=== PATIENT | female | born 1950 ===

== ENCOUNTER 2019-05-03 07:00 | Inpatient (IN) | payer MEDICARE ==
[~2019-05-03 07:00] MED LIST: Lactated Ringers 1000 ML Bag* 1,000 ML IV SCH; Sodium Citrate/Citric Acid* 15 ML UDC PO ONE; Tranexamic Acid 1,000 MG in NS 0.9% 50 ML* (outpatient use) IV SCH
--- OUTSIDE RECORDS SUMMARY | 2019-05-03 07:03 | XMS REPORT | Summary of Care ---
:1950 Author Organization [facility] Address [address] [address] Care Team Providers Name Role Phone Camacho Cote Primary Care Provider Reason for Referral Diagnostic Testing (Routine) Status Reason Specialty Diagnoses / Procedures Referred By Referred To Contact Contact Closed Cardiology Diagnoses Preoperative cardiovascular examination LBBB (left bundle branch block) Essential hypertension [place] Cardiovascular Procedures ECHOCARDIOGRAM TTE Jose Johnston MD Diagnostic [address] [address] [address] [place] [address] Phone: Reason for Visit Reason Comments Pre-op Exam right knee total replacement-- Hypertension Encounter Details Date Type Department Care Team Description 04/29/2019 Office Visit Jose Pink Preoperative cardiovascular examination (Primary Dx); [address] MD LBBB (left bundle branch block); [address] Essential hypertension [phone] [address] [address] Allergies Active Allergy Reactions Severity Noted Date Comments Epinephrine Hcl SUPERVISOR [employer]ADING Reaction 01/03/2010 Procaine Other 07/17/2010 documented as of this encounter (statuses as of 04/29/2019) Medications Medication Sig Dispensed Refills Start End Date Status Date Nutritional Supplements Take by 0 Active (GLUCOSAMINE COMPLEX mouth. PO) Vitamin E 600 UNIT Oral Take 1,200 0 Active Cap Units by mouth. vitamin a 8000 UNIT Take by 0 Active Oral Cap mouth DAILY. Multiple Take by 0 Active Vitamins-Minerals mouth. (MULTIVITAMIN & MINERAL PO) B Complex Vitamins (B Take by 0 Active COMPLEX 1 PO) mouth. Nutritional Supplements Take by 0 Active (JUICE PLUS FIBRE PO) mouth. Cyanocobalamin (B-12) Take by 0 Active 1000 MCG Oral Tab CR mouth. Probiotic Product Take 1 Cap 30 Cap 5 Active (PROBIOTIC DAILY) Oral by mouth 5 CapIndications: DAILY. Recurrent UTI loratadine Take 1 Tab 30 Tab 5 Active (CLARITIN,ALAVERT) 10 by mouth 8 MG Oral TabIndications: DAILY. Allergic rhinitis, unspecified seasonality, unspecified trigger Estradiol (YUVAFEM) 10 Place 1 16 Tab 5 Active MCG Vaginal Appl into 8 TabIndications: Vaginal the vagina atrophy THREE TIMES PER WEEK. hydrochlorothiazide take 1 90 Tab 3 Active (HCTZ, ORETIC) 25 MG tablet by 8 Oral Tab mouth once daily fluticasone (FLONASE) instill 2 16 g 5 Active 50 MCG/ACT Nasal sprays into 9 SuspensionIndications: each Chronic maxillary nostril sinusitis once daily acyclovir (ZOVIRAX) 200 take 1 30 Cap 5 Active MG Oral CapIndications: capsule by 9 Herpes mouth 5 TIMES DAILY ALPRAZolam (XANAX) 0.25 Take 1 Tab 30 Tab 0 Active MG Oral TabIndications: by mouth 9 Anxiety THREE TIMES DAILY NEEDED (anxiety). Max Daily Amount: 0.75 mg. PREMPRO 0.3-1.5 MG Oral take 1 28 Tab 5 Active Tab tablet by 9 mouth once daily sertraline (ZOLOFT) 50 Take 1 Tab 90 Tab 1 Active MG Oral TabIndications: by mouth 9 Depression, unspecified DAILY. depression type Blood Pressure 1 Kit by 1 Device 0 10/13/19 Active Monitoring (BLOOD Does not 9 20 PRESSURE KIT) Does not apply route apply DAILY for DeviceIndications: 180 days. Essential hypertension nitrofurantoin take 1 30 Cap 2 Active monohydrate capsule by 9 macrocrystal (MACROBID) mouth twice 100 MG Oral Cap a day lisinopril (PRINIVIL, Take 1 Tab 30 Tab 3 Active ZESTRIL) 10 MG Oral Tab by mouth 9 DAILY. 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 documented as of this encounter (statuses as of 04/29/2019) Resolved Problems Problem Noted Date Resolved Date Effusion of shoulder joint 03/02/2007 10/12/2010 Other screening mammogram 02/11/2007 10/12/2010 Unspecified sinusitis (chronic) 12/23/2006 10/12/2010 Urinary tract infection, site not specified 05/20/2006 10/12/2010 documented as of this encounter (statuses as of 04/29/2019) Immunizations Name Administration Dates Next Due Depo Medrol (40mg) 01/18/2011 Hepatitis A Vaccine-Adult 03/04/2007, 09/03/2006 Hepatitis B Vaccine 11/13/2006, 08/15/2006, 07/15/2006 Hepatitis B Vaccine Adult 11/30/2010 Influenza (IM) Preservative Free 05/01/2015, 05/09/2014, 05/12/2013, 201404/20/2012, 05/13/2011, 06/17/2008 Influenza Vaccine Whole 05/31/2009 Pneumococcal Conjugate(13 Valent) 03/05/2019 Polio - Inactivated Vaccine 01/22/2009, 01/18/2009 TDAP Vaccine 03/05/2019, 01/22/2011 TYPHOID VACCINE 01/30/2009, 09/03/2006 documented as of this encounter Social History Tobacco Use Types Packs/Day Years Used Date Former Smoker Cigarettes 0.5 4 Quit: 1985 Smokeless Tobacco: Never Used Alcohol Use Drinks/Week oz/Week Comments No Sex Assigned at Date Recorded Not on file Job Start Date Occupation Industry Not on file Not on file Not on file Travel History Travel Start Travel End No recent travel history available. documented as of this encounter Last Filed Vital Signs Vital Sign Reading Time Taken Comments Blood Pressure 126/72 04/29/2019 7:40 AM EDT Pulse 63 04/29/2019 7:40 AM EDT Temperature 36.3 04/29/2019 7:40 AM EDT C (97.4 F) Respiratory Rate - - Oxygen Saturation 96% 04/29/2019 7:40 AM EDT Inhaled Oxygen Concentration - - Weight 70.3 kg (155 lb) 04/29/2019 7:40 AM EDT Height 160 cm (5' 3") 04/29/2019 7:40 AM EDT Body Mass Index 27.46 04/29/2019 7:40 AM EDT documented in this encounter Patient Instructions Patient InstructionsJose Bettencourt MD - 04/29/2019 8:00 AM EDTPlease schedule your echocardiogram today. Please increase dose of lisinopril to 10 mg daily. Please get blood work in 7 days after increasing the dose of the medication to check your kidney function. I will see you back in 6 weeks. Patient Education DASH Diet About this topic DASH stands for Dietary Approaches to Stop Hypertension. The DASH diet may help you lower blood pressure. It may also help keep you from getting high blood pressure. You will eat less fat and more fiber on the DASH diet. This diet gives you more minerals that fight high blood pressure. Some nutrients in this diet are: Potassium ? Acts to help you get rid of salt. This may help to lower blood pressure. Calcium ? Makes blood vessels and muscles work the right way Vitamin B12 ? Helps the cells work the right way Fiber ? Helps you feel full. It also helps digestion. What will the results be? The DASH diet may help you: Lower your blood pressure and cholesterol Lower your risk for cancer, heart disease, heart attack, and stroke. It may also lower your risk for heart failure, kidney stones, and diabetes. Lose weight or keep a healthy weight What lifestyle changes are needed? Add regular exercise to get the most help from this diet. Do not skip meals. Eat breakfast each day. Try to lower stress. Find ways to relax. Stop smoking. Avoid secondhand smoke. Limit alcohol intake. What changes to diet are needed? Know about poor eating habits. Then, you can fix them as you work with the program. Choose fruit and fruit-flavored gelatin instead of cakes and pastries. This will help to satisfy your desire for sweets. Limit eating food with a lot of salt or sodium in it. Avoid eating canned vegetables and processed foods. These have a lot of salt in them. Look for a low -salt or low-sodium choice. Who should use this diet? This eating plan is good for the whole family. It is also good for people with high blood pressure and those at risk for high blood pressure. What foods are good to eat? Grains: Try to eat 6 to 8 servings of whole grain, high fiber foods each day. These are bread, cereals, brown rice, or pasta. Fruits and vegetables: Eat 4 to 5 servings each day. Try to pick many kinds and colors. Fresh or frozen are best. Look for low sodium or salt-free if you choose canned. Dried peas, beans, and lentils are also good. Dairy: Try to eat 2 to 3 servings of fat free and low fat milk products each day. Lean meats, poultry, and seafood: Try to eat 6 servings or less of lean meats, poultry, and seafood each day. Try to choose more low fat or lean meats like chicken and turkey. Eat less red meat. Eat more fish instead. Nuts, seeds, and legumes (dry beans and peas): Try to eat 4 to 5 servings each week. Try to pick nuts such as almonds, walnuts, sunflower seeds, peanut butter, soy beans, lentils, kidney beans, and split peas. Fats and oils: Try to eat 2 to 3 servings of fats and oils each day. Eat good fats found in fish, nuts, and avocados. Try using olive oil or vegetable oils such as canola oil. Other good oils to try are corn, safflower, sunflower, or soybean oils. Use low-sodium and low-fat salad dressing and mayonnaise. Condiments: Pepper, herbs, spices, vinegar, lemon or mcgrath juices are great for seasoning. Be careful to choose low-sodium or salt-free products if you use broths, soups, or soy sauce. Sweets: Try to eat less than 5 servings each week. Choose low-fat, trans fat-free, sugar-free cookies. These are things like dena crackers, animal crackers, low-fat fig bars, and sundar snaps. It is better to choose gelatin or fruit to satisfy your desire for sweets. What foods should be limited or avoided? Grains: Salted breads, rolls, crackers, quick breads, self-rising flours, biscuit mixes, regular bread crumbs, instant hot cereals, commercially-prepared rice, pasta, stuffing mixes Fruits and vegetables: Commercially-prepared potatoes and vegetable mixes, regular canned vegetables and juices, vegetables frozen with sauce or pickled vegetables, processed fruits with salt or sodium Milk: Whole milk, malted milk, chocolate milk, buttermilk, cheese, ice cream Meats and beans: Smoked, cured, salted, or canned fish; meats or poultry such as kilpatrick, sausages, sardines; high-fat cuts of meat like beef, taylor, or pork; chicken with the skin on it Fats: Cut back on solid fats like butter, lard, and margarine. Eat less food with high saturated fat, cholesterol and total fat. Condiments and snacks: Salted and canned peas, beans, and olives; salted snack foods; fried foods; soda or other sweetened drinks; commercially-softened water; club soda Sweets: High-fat baked goods such as muffins, donuts, pastries, commercial baked goods, candy bars Avoid drinking beer, wine, and mixed drinks (alcohol) and sodas. Helpful tips Try baking or broiling instead of frying food. Write down the foods you eat. This will help you track what you have eaten each week. When you go to a grocery store, have a list or a meal plan. Do not shop when you are hungry to avoid cravings for foods. Read food labels with care. They will show you how much is in a serving. The amount is given asa percentage of the total amount you need each day. Reading labels will help you make healthy food choices. Avoid fast foods. Taking vitamin and mineral supplements will help you balance your diet. Talk to a dietitian for help. Where can I learn more? FamilyDoctor.org http://familydoctor.org/familydoctor/en/prevention-wellness/food-nutrition/ weight-loss/gtp-dnfq-yghm-kmhbgjd-hsxmkr-ki-fulwvfm-ssgd-qszrw-pressure.html National [employer] [place] http://www.nhlbi.nih.gov/health/public/heart/hbp/dash/new_dash.pdf Last Reviewed Date 2016-04-12 Consumer Information Use and Disclaimer This information is not specific medical advice and does not replace information you receive from your health care provider. This is only a brief summary of general information. It does NOT include allinformation about conditions, illnesses, injuries, tests, procedures, treatments, therapies, discharge instructions or life-style choices that may apply to you. You must talk with your health care provider for complete information about your health and treatment options. This information should not beused to decide whether or not to accept your health care providers advice, instructions or recommendations. Only your health care provider has the knowledge and training to provide advice that isright for you. Copyright Copyright 2018 [employer] and its affiliates and/or licensors. All rights reserved. documented in this encounter Progress Notes Jose Bettencourt MD - 04/29/2019 8:00 AM EDT PATIENT: Sonia Field : 1950 DATE OF SERVICE: 04/29/2019 REFERRING PRACTITIONER: Nasir Bishop PRIMARY CARE PROVIDER: Camacho Cote CHIEF COMPLAINT: Chief Complaint Patient presents with Pre-op Exam right knee total replacement-- Hypertension Dear Dr. Bishop and Ms. Cote, Thank you for referring Sonia Field to cardiology for preoperative cardiac evaluation after she was noted to have LBBB on her EKG. I had the pleasure of seeing Sonia Field in the cardiology office today for a new patient consultation. Sonia Field is a 68-y.o. female with a relevant past medical history of 1. Hypertension 2. Depression 3. LBBB Ms. Field has been recommended right total knee replacement. She was seen by her primary care team in preoperative evaluation and was noted to have a left bundle branch block. Her blood pressure also appears to be suboptimally controlled. She tells me she was told she had left bundle branch block years ago. She is somewhat limited in her ability to exert herself because of arthritis in her knees. However she can walk reasonable distances on the flat. She actually did spinning until about a month ago. She can climb a flight of stairs without significant limitations. She denies any significant exertional chest pain or worsening shortness of breath recently. She denies any cough, fever, leg swelling, orthopnea, PND or palpitations. Review of systems: As per HPI, all other systems reviewed and negative. Past Medical History: Diagnosis Date Arthritis History of breast surgery Hypertension Other postprocedural status(V45.89) Postmenopausal Past Surgical History: Procedure Laterality Date MO FEMUR/KNEE SURG UNLISTED TONSILLECTOMY Family History Problem Relation Age of Onset Diabetes Mother Hypertension Mother Heart Disease Mother Cancer Father Current Outpatient Medications Medication Sig acyclovir (ZOVIRAX) 200 MG Oral Cap take 1 capsule by mouth 5 TIMES DAILY ALPRAZolam (XANAX) 0.25 MG Oral Tab Take 1 Tab by mouth THREE TIMES DAILY NEEDED (anxiety). Max Daily Amount: 0.75 mg. B Complex Vitamins (B COMPLEX 1 PO) Take by mouth. Blood Pressure Monitoring (BLOOD PRESSURE KIT) Does not apply Device 1 Kit by Does not apply route DAILY for 180 days. Cyanocobalamin (B-12) 1000 MCG Oral Tab CR Take by mouth. Estradiol (YUVAFEM) [address] 1 Appl into the vagina THREE TIMES PER WEEK. fluticasone (FLONASE) 50 MCG/ACT Nasal Suspension instill 2 sprays into each nostril once daily hydrochlorothiazide (HCTZ, ORETIC) 25 MG Oral Tab take 1 tablet by mouth once daily lisinopril (PRINIVIL, ZESTRIL) 10 MG Oral Tab Take 1 Tab by mouth DAILY. loratadine (CLARITIN,ALAVERT) 10 MG Oral Tab Take 1 Tab by mouth DAILY. Multiple Vitamins-Minerals (MULTIVITAMIN & MINERAL PO) Take by mouth. nitrofurantoin monohydrate macrocrystal (MACROBID) 100 MG Oral Cap take 1 capsule by mouth twice a day Nutritional Supplements (GLUCOSAMINE COMPLEX PO) Take by mouth. Nutritional Supplements (JUICE PLUS FIBRE PO) Take by mouth. PREMPRO 0.3-1.5 MG Oral Tab take 1 tablet by mouth once daily Probiotic Product (PROBIOTIC DAILY) Oral Cap Take 1 Cap by mouth DAILY. sertraline (ZOLOFT) 50 MG Oral Tab Take 1 Tab by mouth DAILY. vitamin a 8000 UNIT Oral Cap Take by mouth DAILY. Vitamin E 600 UNIT Oral Cap Take 1,200 Units by mouth. No current facility-administered medications for this visit. Allergies Allergen Reactions Epinephrine Hcl SUPERVISOR PYROTECHNIC LOADING Reaction Novacain [Procaine] Other Social History Socioeconomic History Marital status: Spouse name: Not on file Number of children: Not on file Years of education: Not on file Highest education level: Not on file Occupational History Not on file Social Needs Financial resource strain: Not on file Food insecurity: Worry: Not on file Inability: Not on file Transportation needs: Medical: Not on file Non-medical: Not on file Tobacco Use Smoking status: Former Smoker Packs/day: 0.50 Years: 4.00 Pack years: 2.00 Types: Cigarettes Last attempt to quit: 1985 Years since quittin.7 Smokeless tobacco: Never Used Substance and Sexual Activity Alcohol use: No Drug use: No Sexual activity: Never Partners: Male Lifestyle Physical activity: Days per week: Not on file Minutes per session: Not on file Stress: Not on file Relationships Social connections: Talks on phone: Not on file Gets together: Not on file Attends rastafarian service: Not on file Active member of club or organization: Not on file Attends meetings of clubs or organizations: Not on file Relationship status: Not on file Intimate partner violence: Fear of current or ex partner: Not on file Emotionally abused: Not on file Physically abused: Not on file Forced sexual activity: Not on file Other Topics Concern Not on file Social History Narrative Not on file Physical Examination: VITALS: BP 126/72 (BP Location: Left arm, Patient Position: Sitting) | Pulse 63 | Temp 97.4 F(36.3 C) (Temporal) | Ht 5' 3" (1.6 m) | Wt 155 lb ( 70.3 kg) | SpO2 96% | BMI 27.46 kg/m Body mass index is 27.46 kg/m. General Appearance: Alert, cooperative, no distress, appears stated age Head: Normocephalic, without obvious abnormality, atraumatic Eyes: PERRL, conjunctiva/corneas clear Nose: No drainage or sinus tenderness Throat: Lips, mucosa, and tongue normal Neck: Supple, symmetrical, trachea midline, no adenopathy; Thyroid: no enlargement/tenderness/nodules; no carotid bruit or JVD Lungs: Clear to auscultation bilaterally, respirations unlabored Chest wall: No tenderness or deformity Heart: Regular rate and rhythm, S1 and S2 normal, no murmur, rub or gallop Abdomen: Soft, non-tender, bowel sounds active all four quadrants, no masses , no organomegaly Extremities: Extremities normal, atraumatic, no cyanosis or edema Pulses: 2+ and symmetric all extremities Skin: Skin color, texture, turgor normal, no rashes or lesions Lymph nodes: Cervical nodes normal Neurologic: No focal deficits. Lab Results Component Value Date CREATININE 0.6 (L) 04/16/2019 CREATININE 1.08 06/17/2017 CREATININE 0.7 11/09/2012 BUN 13 04/16/2019 BUN 11 11/09/2012 NA 141 04/16/2019 NA 138 11/09/2012 K 4.2 04/16/2019 K 3.9 11/09/2012 CL 104 04/16/2019 CL 99 11/09/2012 CO2 29 04/16/2019 CO2 28.0 11/09/2012 GLUCOSE 89 04/16/2019 GLUCOSE 69 (L) 11/09/2012 ALT 22 01/23/2017 ALT 35 11/09/2012 AST 26 01/23/2017 AST 49 (H) 11/09/2012 Lab Results Component Value Date WBC 6.76 04/16/2019 WBC 5.7 03/17/2013 RBC 4.59 04/16/2019 RBC 4.36 03/17/2013 HGB 13.9 04/16/2019 HGB 13.8 03/17/2013 HCT 41.2 04/16/2019 HCT 40.5 03/17/2013 MCV 89.8 04/16/2019 MCV 92.9 03/17/2013 MCH 30.3 04/16/2019 MCH 31.6 03/17/2013 RDW 12.2 04/16/2019 RDW 12.8 03/17/2013 Lab Results Component Value Date CHOL 188 04/21/2017 CHOL 152 12/26/2015 CHOL 218 (H) 07/03/2015 Lab Results Component Value Date HDL 74 (H) 04/21/2017 HDL 69 (H) 12/26/2015 HDL 72 (H) 07/03/2015 No results found for: LDL Lab Results Component Value Date TRIG 55 04/21/2017 TRIG 53 12/26/2015 TRIG 56 07/03/2015 DIAGNOSTIC STUDIES: ECG [04/16/2019]: Sinus rhythm, left bundle branch block, no previous EKGs TRANSTHORACIC ECHOCARDIOGRAM [today]: Left ventricular cavity size is normal with normal global systolic function with an estimated ejection fraction of 55-60%. Right ventricle is normal in size with preserved contractility. Normal LA and RA size. No hemodynamically significant valvular abnormalities. Aneurysmal interatrial septum. No evidence of PFO / ASD with limited 2D imaging and Color Doppler interrogation. No previous study for comparison. IMPRESSION: ICD-9-CM ICD-10-CM 1. Preoperative cardiovascular examination V72.81 Z01.810 ECHOCARDIOGRAM TTE BASIC METABOLIC PANEL 2. LBBB (left bundle branch block) 426.3 I44.7 ECHOCARDIOGRAM TTE BASIC METABOLIC PANEL 3. Essential hypertension 401.9 I10 ECHOCARDIOGRAM TTE BASIC METABOLIC PANEL 1. Preoperative cardiac evaluation: -Ms. Field has no previous history of myocardial infarction, heart failure syndrome, other concerning arrhythmias, CKD, diabetes or stroke. -No anginal symptoms recently and clinically no evidence of cardiac decompensation. -EKG does show a left bundle branch block, which is likely old. We do not have previous EKGs to compare. -Echocardiogram today shows normal LV systolic function without significant other abnormalities.. -Although she is limited with her ability to exert herself she probably may be able to achieve 4 METS with exertion. -Ms. Field is low risk by RCRI criteria for an intermediate risk procedure. -I recommended increasing the dose of lisinopril to 10 mg daily for optimal blood pressure control. -I do not recommend any further cardiac evaluation at present. 2. Left bundle branch block: -Possibly related to hypertensive heart disease. -Echocardiogram today shows preserved LV systolic function without significant other abnormalities. 3. Hypertension: -Blood pressure in acceptable range today, although note suboptimal control recently. -In view of this I recommended increasing dose of lisinopril to 10 mg daily. -I recommended BMP in 7 to 10 days time for reassessment. -Recommend lipid profile through her primary care physician in due course. -Reiterated importance of low-salt, low-cholesterol diet and regular exercises as able. PLAN: Echocardiogram Follow Up: 6 weeks Once again, it was a pleasure participating in your patient's care. Please feel free to contact me if you have any questions or if I can be of any further assistance to your patients. Yours sincerely, Author: Jose Bettencourt MD 04/29/2019 16:46 During this visit, I reviewed the relevant imaging, laboratory reports, and previous clinical notes.Additional counseling and preparation time (which represents > 50 % of total visit time) was necessary for data gathering, reviewing studies and discussing options, in excess of interviewing the patient and/or family members. This note was created using previous cardiology clinic visit note as a template ; changes were made where appropriate, and all information in the current note is up to date to the best of my knowledge. This note has been dictated using voice recognition software. Please disregard any inadvertent grammatical errors. Please do not hesitate to contact our office for clarifications. documented in this encounter Plan of Treatment Date Type Specialty Care Team Description 06/10/2019 Office Visit Cardiology Jose Bettencourt MD [address] [place] [id number] 07/26/2019 Office Visit Cardiology Jorje Eckert MD [address] [place] [address] 02/28/2020 Ocular Visit Optometry Guzman Handley, OD [address] [place] [address] Name Type Priority Associated Diagnoses Order Schedule BASIC METABOLIC PANEL Lab Routine Preoperative cardiovascular Expected: examination (Approximate), LBBB (left bundle branch Expires: 04/29/2020 block) Essential hypertension Health Maintenance Due Date Last Done Comments MEDICARE ANNUAL WELLNESS 1950 VISIT ZOSTER IMMUNIZATION SERIES 2002 (1 of 2) OSTEOPOROSIS SCREENING 2017 LIPID DISORDER SCREENING 04/21/2018 04/21/2017, 12/26/2015, 07/03/2015, Additional history exists INFLUENZA VACCINE (#1) 2019 05/01/2015, 05/09/2014, 05/12/2013, Additional history exists DEPRESSION SCREENING 03/05/2020 03/05/2019, 10/10/2017 FALL RISK ASSESSMENT 03/05/2020 03/05/2019, 03/05/2019 MAMMOGRAM (SCREENING) 03/05/2020 03/19/2017, 12/26/2015, Postponed from 12/14/2013, Additional 03/19/2018 (Patient history exists refused) PNEUMOCOCCAL 65+YRS (2 of 2 03/05/2020 03/05/2019 - PPSV23) DIABETES SCREENING 04/16/2020 04/16/2019, 04/10/2017, 01/23/2017, Additional history exists COLONOSCOPY SCREENING 01/22/2021 01/22/2011 (Declined) HEPATITIS C SCREENING Completed 01/23/2017 HPV IMMUNIZATION SERIES Aged Out No longer eligible based on patient's age to complete this topic MENINGOCOCCAL VACCINE IMM Aged Out No longer eligible based on patient's age to complete this topic documented as of this encounter Goals Goal Patient Goal Associated Recent Patient-Stated? Author Type Problems Progress Blood Pressure Blood Pressure Hypertension 126/72 No Rohl, < 140/90 (04/29/2019 Camacho, 7:40 AM EDT) CALEB Note: Hypertension Care Plan Based on the patient's clinical history and according to JNC 8 guidelines target blood pressure goal is less than 140/90. Based on the patient's last blood pressure of BP: 112/70 mmHg the patient is at at goal. As your provider, it is important that I advise you regarding: your current medications and help you with any challenges you may face taking your medications as directed (ex. instructions, cost, side effects, and interactions). Important lifestyle changes: exercise, weight reduction, diet, dietary sodium reduction, medication compliance and moderation of alcohol consumption your clinical goals and how you can achieve success: weight reduction, exercise plan and diet improvements medication management: adjusted medications as appropriate patient education/self-management tools provided: Current self-management tools adequate To successfully manage my Hypertension I will: monitor my blood pressure daily, understanding that my goal is less than 140/ 90 per my healthcare provider's recommendation. I will schedule an appointment with my provider if consistent abnormal readings greater than 160/100. take medications every day as prescribed by my healthcare provider and if unable to take them I will discuss with my provider. monitor for symptoms of chest pain, chest tightness/pressure, irregular heartbeat, persistent dizziness, radiating arm pain, and neck or jaw pain. If any of these symptoms are noticed I will seek medical attention immediately by calling 911 exercise/walk 30 minutes 3 day(s) per week. If I experience chest pain, chest tightness, or shortness of breath, I will seek medical attention immediately. follow a diet rich in fruits, vegetables, and low-fat dairy products with reduced content of saturated & total fat. I will reduce my sodium intake daily. An example is the DASH diet. To obtain more information please refer to the DASH Eating Plan listed in Educational Resources. record my blood pressure results. San[employer] is safe and secure way for you to do this in your medical record online. try to obtain an ideal body weight. My recent weight was Weight: 135 lb ( 61.236 kg). My weight loss goal for my next office visit is 0. limit alcohol consumption. For men two drinks per day and women one drink per day. if currently smoking, will discuss how to quit smoking with my healthcare provider and work towards quitting. Educational Resources: National Heart, Lung, & Blood [place] http://nhlbi.nih.gov/hbp/index.html The DASH Diet Eating Plan http://www.nhlbi.nih.gov/health/health-topics/ topics/dash/ Academy of Nutrition & DIetetics http://eatright.org National Smoking Cessation Site http://smokefree.gov Blood Pressure < Blood Pressure 126/72 (04/29/2019 No Camacho Cote PA-C 150/90 7:40 AM EDT) Note: This is an individualized treatment (blood pressure) goal for Sonia Field: Displayed above (on the left) is your goal for blood pressure control. Your most recent blood pressure is also shown above, on the right. You should try to achieve blood pressures that are lower than your goal listed above (on the left). Depression screen Depression 3 (10/10/2017 6:01 PM No Camacho Cote PA-C (PHQ-9) total score < 5 EST) Note: This is an individualized treatment (depression) goal for Sonia Lionel Field: Displayed above is your goal for a depression screening (PHQ-9) score that would indicate good control of your depression. Keep a regular sleep schedule Lifestyle No Camacho Cote PA-C Note: This is an individualized lifestyle goal for Sonia Field: Please maintain a regular sleep schedule. This may help with some symptoms of depression. Take all prescribed medications as Self-management Camacho Carreon PA-C directed Note: This is an individualized self-management goal for Sonia Field: Please take all prescribed medications as directed. 1. Do not skip doses. If you cannot afford your medications, talk with your doctor. 2. Use a pill reminder system such as a pill box if needed. Your pharmacist can help you with this. 3. Contact your Pharmacy 5 days before your medication runs out. If you cannot take your medications for any reasons, talk with your doctor. 4. Please bring all of your medication bottles and inhalers (or a list of all your medications/inhalers) with you to every visit. Potential barriers to meeting all of your care plan goals will continue to be addressed on an ongoing basis. documented as of this encounter Results ECHOCARDIOGRAM TTE (04/29/2019 8:49 AM EDT) ECHOCARDIOGRAM TTE ECHOCARDIOGRAPHY REPORT CARDIOLOGY DEPARTMENT Patient Name: NAIMA POWELL Status: Outpatient MR Number: [id number] Gender: Female : 1950 Location: [facility] Age:68 year(s) Exam Date: 04/29/2019 08:49 AM Height: 63 inches Weight: 155 pounds Study Performed: 2D echocardiogram, M-Mode, Doppler , Color Doppler, Echocardiogram . Ordering JOSE JOHNSTON Provider: LAURA PORRAS Referring CAMACHO COTE Provider: WHITNEY BETTENCOURT MD Parts Counter Sales Person: Ty Aviles Room Number Interpreting JOSE JOHNSTON Physician LAURA PORRAS BSA: 1.74 m^2 Interpreting BMI: 27.46 kg/m^2 Fellow Nurse Heart Rate (HR): 64bpm INDICATION FOR STUDY: Preop cardiac evaluation. FINAL IMPRESSION: Left ventricular cavity size is normal with normal global systolic function with an estimated ejection fraction of 55-60%. Right ventricle is normal in size with preserved contractility. Normal LA and RA size. No hemodynamically significant valvular abnormalities. Aneurysmal interatrial septum. No evidence of PFO / ASD with limited 2D imaging and Color Doppler interrogation. No previous study for comparison. OBSERVATIONS & FINDINGS: Using 2d (3d if applicable), M-mode, Colorflow, Continuous wave doppler and Pulse wave doppler interrogation Left Ventricle Left ventricular cavity size is normal. Left ventricular wall thickness is mildly increased. Abnormal septal motion due to LBBB. No other regional wall motion abnormalities. No evidence of LVOT obstruction. Global systolic function is normal, with an estimated ejection fraction of 55-60%. Left Atrium The left atrium is normal (<34 ml/m2) in size measuring 27 ml/m2. (2015 ASE/EACI Guidelines). Mitral Valve Mitral valve has mildly thickened but flexible leaflets. No evidence of mitral stenosis or prolapse. Aortic Valve Aortic valve appears tricuspid with mildly thickened and calcified but flexible leaflets. There is no aortic stenosis or regurgitation. Right Ventricle The right ventricle is normal in size with preserved contractility. Right Atrium The right atrium is normal in size. Tricuspid Valve Tricuspid valve is structurally normal with normal mobility. There is trivial to mild tricuspid regurgitation. Estimated pulmonary artery systolic pressure is 20 mmHg. Pulmonic Valve Pulmonic valve is structurally normal with flexible leaflets. There is trivial pulmonic regurgitation. Pericardium / Pleura There is no pericardial effusion. Miscellaneous Visualized portions of aorta are within normal limits. Aneurysmal interatrial septum. No evidence of PFO / ASD with limited 2D imaging and Color Doppler interrogation. Measurements & Calculations: M-Mode / 2D Measurements Value Normal Value Normal LVIDd: 3.74 cm 3.5-5.5 AO Root: 3.4 cm 2.0-3.7 LVIDs: 2.64 cm 3.0-4.0 LA Dimension: cm 1.9-4.0 IVSd: 1.15 cm 0.7-1.1 LVOT: 2.1 cm 1.5-2.5 LVPWD: 1.1 cm 0.7-1.1 RV Diastolic Dimension: 3.25 cm Doppler Measurements & Calculations: Mitral: Aortic: Peak E-Wave: 66.6 cm/s LVOT VTI: 24.2 cm Peak A-Wave: 91.8 cm/s Peak Velocity: 113 cm/s Peak Gradient: 1.77 mmHg Peak Gradient: 5.11 mmHg Area (continuity): 2.95 cm^2 Mean Velocity: 84.3 cm/s Deceleration Time: 201 msec Mean Gradient: 4 mmHg AV VTI: 28.4 cm E/A Ratio: 0.73 Tricuspid: Pulmonic: RVSP:20 mmHg Peak Velocity: 94.1 cm/s Peak TR Velocity:207 cm/s Peak Gradient: 3.54 mmHg TR Gradient:17.1396 mmHg TR Velocity: 207 cm/s TR Gradient: 17.1396 mmHg Estimated PASP: 20.14 mmHg Estimated RAP: 3 mmHg Estimated RVSP: 20 mmHg Left Atrium: Right Atrium: LA Dimension: 3.8 cm RA dimension:2.81 cm LA/Aorta: 1.12 RA area:12.9 cm^2 LA Area: 16.1 cm^2 LA Volume/Index: 47 ml /27m^2 Left Ventricle: Right Ventricle: Diastolic Dimension: 3.74 cm Septum Diastolic: 1.15 cm PW Diastolic: 1.1 cm Dove dimension:3.25 cm Area Diastolic: 32.1 cm^2 EF Calculated: 66.67% RV sys pressure:20.14 mmHg CO: 5.36 l/min LVOT FS: 29.41 % Peak Velocity: 115 cm/s LV Length: 7.72 cm Peak Gradient: 4 mmHg LVOT Diameter: 2.1 cm LVOT Diameter: 2.1 cm Systolic Dimension: 2.64 cm Mean Velocity: 64.9 cm/s Mean Gradient: 2 mmHg Area Systolic: 16.3 cm^2 LVOT VTI: 24.2 cm CI: 3.08 l/min*m^2 Aorta Aortic Root: 3.4 cm LV EDV/LV EDV Index: 102 ml/59 m^2 Ascending Aorta: 2.7 cm LV ESV/LV ESV Index: 34 ml/20 m^2 LVOT Diameter: 2.1 cm Signature Ejection Fraction % CARDIOLOGY DEPARTMENT AV AREA 2.95 cm2 CARDIOLOGY DEPARTMENT RVSP 20 mmHg CARDIOLOGY DEPARTMENT LA Volume 47 ml CARDIOLOGY DEPARTMENT LVEDd 3.74 cm CARDIOLOGY DEPARTMENT LVESd 2.64 cm CARDIOLOGY DEPARTMENT IVSd 1.15 cm CARDIOLOGY DEPARTMENT LVPWd 1.1 cm CARDIOLOGY DEPARTMENT ESV 34 ml CARDIOLOGY DEPARTMENT EDV 102 ml CARDIOLOGY DEPARTMENT AV Mean Gradient 4 mmHg CARDIOLOGY DEPARTMENT Specimen Performing Organization Address City/State/Zipcode Phone Number CARDIOLOGY DEPARTMENT documented in this encounter Visit Diagnoses Diagnosis Preoperative cardiovascular examination - Primary Pre-operative cardiovascular examination LBBB (left bundle branch block) Other left bundle branch block Essential hypertension Unspecified essential hypertension documented in this encounter Insurance Payer Benefit Plan / Subscriber ID Effective Dates Phone Address Type Group [employer]IC[employer] EXCELLUS xxxxxxxxxxxx 2018-Present [employer] ADVANT[employer] MEDICARE BLUE PPO ([phone]) (Home) [facility] [phone] [place] [address] (Work) documented as of this encounter Advance Directives Type Date Recorded 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
--- OUTSIDE RECORDS SUMMARY | 2019-05-03 07:03 | XMS REPORT | Summary of Care ---
:1950 Author Organization [facility] Address [address] [address] Care Team Providers Name Role Phone Camacho Cote Primary Care Provider Reason for Referral Diagnostic Testing (Routine) Status Reason Specialty Diagnoses / Procedures Referred By Referred To Contact Contact Closed Cardiology Diagnoses Preoperative cardiovascular examination LBBB (left bundle branch block) Essential hypertension Subrayappa, Tc Cardiovascular Procedures ECHOCARDIOGRAM TTE Jose Johnston MD Diagnostic [address] [address] [address] [place] [address] Phone: Reason for Visit Diagnostic Testing (Routine) Status Reason Specialty Diagnoses / Procedures Referred By Referred To Contact Contact Closed Cardiology Diagnoses Preoperative cardiovascular examination LBBB (left bundle branch block) Essential hypertension Subrayappa, Tch Cardiovascular Procedures ECHOCARDIOGRAM TTE Jose Johnston MD Diagnostic [address] [address] [place] [address] Phone: Encounter Details Date Type Department Care Team Description 04/29/2019 Hospital Encounter [facility] Cardiovascular Outpatient Diagnostic [address] [address] Allergies Active Allergy Reactions Severity Noted Date Comments Epinephrine Hcl MEDICAL RECORD CONSULTANT Reaction 01/03/2010 Procaine Other 07/17/2010 documented as of this encounter (statuses as of 05/01/2019) Medications Medication Sig Dispensed Refills Start Date End Date Status Nutritional Supplements Take by 0 Active (GLUCOSAMINE COMPLEX PO) mouth. Vitamin E 600 UNIT Oral Take 1,200 0 Active Cap Units by mouth. vitamin a 8000 UNIT Oral Take by 0 Active Cap mouth DAILY. Multiple Vitamins-Minerals Take by 0 Active (MULTIVITAMIN & MINERAL mouth. PO) B Complex Vitamins (B Take by 0 Active COMPLEX 1 PO) mouth. Nutritional Supplements Take by 0 Active (JUICE PLUS FIBRE PO) mouth. Cyanocobalamin (B-12) 1000 Take by 0 Active MCG Oral Tab CR mouth. Probiotic Product Take 1 Cap by 30 Cap 5 02/23/2015 Active (PROBIOTIC DAILY) Oral mouth DAILY. CapIndications: Recurrent UTI loratadine Take 1 Tab by 30 Tab 5 03/25/2018 Active (CLARITIN,ALAVERT) 10 MG mouth DAILY. Oral TabIndications: Allergic rhinitis, unspecified seasonality, unspecified trigger Estradiol (YUVAFEM) [address] 1 Appl 16 Tab 5 04/02/2018 Active Vaginal TabIndications: into the Vaginal atrophy vagina THREE TIMES PER WEEK. hydrochlorothiazide (HCTZ, take 1 tablet 90 Tab 3 06/22/2018 Active ORETIC) 25 MG Oral Tab by mouth once daily fluticasone (FLONASE) 50 instill 2 16 g 5 08/19/2018 Active MCG/ACT Nasal sprays into SuspensionIndications: each nostril Chronic maxillary once daily sinusitis acyclovir (ZOVIRAX) 200 MG take 1 30 Cap 5 12/21/2018 Active Oral CapIndications: capsule by Herpes mouth 5 TIMES DAILY ALPRAZolam (XANAX) 0.25 MG Take 1 Tab by 30 Tab 0 03/05/2019 Active Oral TabIndications: mouth THREE Anxiety TIMES DAILY NEEDED (anxiety). Max Daily Amount: 0.75 mg. PREMPRO 0.3-1.5 MG Oral take 1 tablet 28 Tab 5 03/15/2019 Active Tab by mouth once daily sertraline (ZOLOFT) 50 MG Take 1 Tab by 90 Tab 1 04/16/2019 Active Oral TabIndications: mouth DAILY. Depression, unspecified depression type Blood Pressure Monitoring 1 Kit by Does 1 Device 0 04/16/2019 10/13/2019 Active (BLOOD PRESSURE KIT) Does not apply not apply route DAILY DeviceIndications: for 180 days. Essential hypertension nitrofurantoin monohydrate take 1 30 Cap 2 04/20/2019 Active macrocrystal (MACROBID) capsule by 100 MG Oral Cap mouth twice a day lisinopril (PRINIVIL, Take 1 Tab by 30 Tab 3 04/29/2019 Active ZESTRIL) 10 MG Oral Tab mouth DAILY. 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 documented as of this encounter (statuses as of 05/01/2019) Resolved Problems Problem Noted Date Resolved Date Effusion of shoulder joint 03/02/2007 10/12/2010 Other screening mammogram 02/11/2007 10/12/2010 Unspecified sinusitis (chronic) 12/23/2006 10/12/2010 Urinary tract infection, site not specified 05/20/2006 10/12/2010 documented as of this encounter (statuses as of 05/01/2019) Immunizations Name Administration Dates Next Due Depo [...] of this encounter Last Filed Vital Signs Not on filedocumented in this encounter Plan of Treatment Date Type Specialty Care Team Description 06/10/2019 Office Visit Cardiology Jose Bettencourt MD [address] [place] [address] 07/26/2019 Office Visit Cardiology Jorje Eckert MD [address] [place] [address] 02/28/2020 Ocular Visit Optometry Guzman Handley, OD [address] [place] [address] Health Maintenance Due Date Last Done Comments [...] Hypertension 126/72 No Rohl, < 140/90 (04/29/2019 Bernedette, 7:40 AM EDTTamara ELLIS Note: Hypertension Care Plan Based on the [...] Educational Resources. record my blood pressure results. eGottorie is safe and secure way for you [...] Educational Resources: National Heart, Lung, & Blood [place] http://nhlbi.nih.gov/hbp/index.html The DASH Diet Eating Plan http://www.nhlbi.nih.gov/health/health-topics/ [...] Depression screen Depression 3 (10/10/2017 6:01 PM Camacho Carreon PA-C (PHQ-9) total score < 5 EST) Note: This is an individualized treatment (depression) goal for Sonia Field: Displayed above is your goal for a depression screening (PHQ-9) score that would indicate good control of your depression. Keep a regular sleep schedule Lifestyle Camacho Carreon PA-C Note: This is an individualized lifestyle [...] ongoing basis. documented as of this encounter Procedures Procedure Name Priority Date/Time Associated Diagnosis Comments ECHOCARDIOGRAM TTE Routine 04/29/2019 8:49 Preoperative Results for this AM EDT cardiovascular procedure are in examination the results LBBB (left bundle section. branch block) Essential hypertension documented in this encounter Results ECHOCARDIOGRAM TTE (04/29/2019 8:49 AM EDT) ECHOCARDIOGRAM TTE ECHOCARDIOGRAPHY REPORT CARDIOLOGY DEPARTMENT Patient Name: NAIMA POWELL Status: Outpatient MR Number: [id number] Gender: Female : 1950 Location: [facility] Age:68 year(s) Exam Date: 04/29/2019 08:49 AM Height: 63 inches Weight: 155 pounds Study Performed: 2D echocardiogram, M-Mode, Doppler , Color Doppler, Echocardiogram . Ordering JOSE JOHNSTON Provider: LAURA PORRAS Referring CAMACHO COTE Provider: WHITNEY BETTENCOURT MD Sole Edge Inker Machine: Ty Aviles Room Number Interpreting JOSE JOHNSTON [...] encounter Visit Diagnoses Diagnosis Preoperative cardiovascular examination Pre-operative cardiovascular examination LBBB (left bundle branch block) Other left bundle branch block Essential hypertension Unspecified essential hypertension documented in this encounter Insurance Payer Benefit Plan / Subscriber ID Effective Dates Phone Address Type Group [employer] MEDICARE MICHELLEUS xxxxxxxxxxxx 2018-Present [employer]VANTAGE MEDICARE BLUE PPO ([phone]) (Work) documented as of this encounter Advance Directives Type Date Recorded 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
--- OUTSIDE RECORDS SUMMARY | 2019-05-03 07:03 | XMS REPORT | Continuity of Care Document ---
:1950 External Reference #:[id number] Author Name Navid Delgado M.D. 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 Management Problems Description No Information Available Social History Type Date Description Comments Sex Unknown ETOH Use Denies alcohol use Tobacco Use Start: Unknown End: Patient is a former smoker Unknown Smoking Status Reviewed: 04/06/19 Patient is a former smoker Exercise Type/Frequency Exercises regularly Allergies, Adverse Reactions, Alerts Active Allergies Reaction Severity Comments Date Alcohol 01/27/2018 Procaine 01/27/2018 Epinephrine 01/27/2018 Medications Active Medications SIG Qnty Indications Ordering Date Provider Lisinopril 1 by mouth every Unknown 2.5mg Tablets day Hydrochlorothiazide 1 by mouth every Unknown 12.5mg day Capsules Estrogens Conj Synthetic 0.625mg as Unknown directed Multi Complete daily Unknown Capsules Loratadine once a day for Unknown 10mg Capsules allergies as needed Diclofenac Sodium 1 by mouth twice Unknown 50mg Tablets DR a day as needed Oxycodone HCL 1 tabs by mouth Unknown 5mg Capsules every 4-6 hours as needed pain Immunizations Description No Information Available Vital Signs Date Vital Result Comment 04/06/2019 1:53pm Height 63 inches 5'3" Weight 140.00 lb Heart Rate 90 /min BP Systolic 142 mmHg BP Diastolic 88 mmHg Body Temperature 97.4 F BMI (Body Mass Index) 24.8 kg/m2 03/30/2019 9:35am Height 63 inches 5'3" Weight 140.00 lb Heart Rate 69 /min BP Systolic Sitting 140 mmHg BP Diastolic Sitting 76 mmHg Body Temperature 97.8 F BMI (Body Mass Index) 24.8 kg/m2 Results Test Date Facility Test Result H/L Range Note Urinalysis Profile 04/20/2019 [facility] Urine Color Yellow [address] [place] [address] [phone] Urine Appearance Clear Urine Specific [place] 1.015 Normal 1.010-1.030 Urine pH 6.0 Normal 5-9 Urine Urobilinogen Negative Negative Urine Ketones Negative Negative Urine Protein Negative Negative Urine Leukocytes Negative Negative Urine Blood Negative Negative * * Abnormal Negative 1 Urine Nitrite Negative Negative Urine Bilirubin Negative Negative Urine Glucose Negative Negative Inr/Protime 04/20/2019 [facility] Inr 0.99 Normal 0.82-1.[address] [place], [place] [id number] [phone] Laboratory test 04/20/2019 [facility] Partial 31.4 Normal 26.0 -38.[address] [address] Time PTT [phone] Type & Screen 04/20/2019 [facility] Patient A Negative [address] Blood Type [place], [place] [id number] [phone] Antibody Screen NEGATIVE Urine Culture And 04/20/2019 [facility] Urine Culture SEE RESULT [address] [place], [place] [id number] [phone] 1 *Ascorbic acid is present which may interfere with detection of blood. 2 Standard intensity warfarin therapeutic range: 2.0-3.0 High intensity warfarin therapeutic range: 2.5-3.5 3 SEE RESULT BELOW Name: MCNAMARAGALI : [address]: Navid Delgado MD Acct: [id number] Unit: [id number] AGE: 68 Location: PAT Re04/20/19 SEX: F Status: REG REF SPEC: [id number] ELMA: 04/20/19-[address]: Navid Delgado MD REQ: [id number] RECD: 04/20/19 STATUS: COMP _ SOURCE: URINE SPDESC: ORDERED: Urine Culture QUERIES: Urine Source: Clean Catch Procedure Result Reported Site Urine Culture Final 04/21/19- 1621 ML No Growth (<1,000 CFU/mL) * ML - Main Lab . END OF REPORT DEPARTMENT OF PATHOLOGY, [address], [place], [place] [address] Michael Angeles M.D. Director [facility] # [id number] Procedures Date Code Description Status 04/06/2019 60541 Inject/Drain Joint/Bursa Major W/O US Completed Medical Devices Description No Information Available Encounters Type Date Location Provider Dx Diagnosis Office Visit 04/06/2019 [facility] Navid Delgado, M17.0 Bilateral primary 2:30p at [facility] osteoarthritis of knee Office Visit 03/30/2019 [facility] Navid Delgado, M23.261 Derangement of lat 10:00a at [facility] due to old tear/inj, right knee M17.11 Unilateral primary osteoarthritis, right knee Assessments Date Code Description Provider 04/08/2019 M17.11 Unilateral primary osteoarthritis, right knee Navid Delgado M.D. 04/06/2019 M17.0 Bilateral primary osteoarthritis of knee Navid Delgado M.D. 03/30/2019 M23.261 Derangement of other lateral meniscus due to Navid Delgado M.D. old tear or injury, right knee 03/30/2019 M17.11 Unilateral primary osteoarthritis, right knee Navid Delgado M.D. Plan of Treatment Future Appointment(s):06/01/2019 1:30 pm - Navid Del[facility] M.D. at [facility]05/03/2019 10:15 am - [address]INI Szymanski at [facility]05/03/2019 10:15 am - Navid Delgado M.D. at [facility]04/06/2019 - Navid Delgado M.D.M17.0 Bilateral primary osteoarthritis of knee Functional Status Description No Information Available Mental Status Description No Information Available Referrals Description No Information Available
--- OUTSIDE RECORDS SUMMARY | 2019-05-03 07:03 | XMS REPORT | Continuity of Care Document ---
:1950 External Reference #:[id number] Author Name Navid Delgado M.D. (transmitted by agent of provider Sagrario Bartlett) Address [address] [place] [address] [place] [address] Care Team Providers Name Role Phone Camacho Diez PA-C - Care Team Information Assembler Corncob Pipes Physician Corporate Recycling Manager Problems Description No Information Available Social History [...] Result H/L Range Note Urinalysis Profile 04/20/2019 [facility] Urine Color Yellow [address] [place] [address] [phone] Urine Appearance Clear Urine Specific [place] 1.015 Normal 1.010-1.030 Urine pH 6.0 Normal 5-9 Urine Urobilinogen Negative Negative Urine Ketones Negative Negative Urine Protein Negative Negative Urine Leukocytes Negative Negative Urine Blood Negative Negative * * Abnormal Negative 1 Urine Nitrite Negative Negative Urine Bilirubin Negative Negative Urine Glucose Negative Negative Inr/Protime 04/20/2019 [facility] Inr 0.99 Normal 0.82-1.[address] [place], [place] [id number] [phone] Laboratory test 04/20/2019 [facility] Partial 31.4 Normal 26.0 -38.[address] [place] [address] Time PTT [phone] Type & Screen 04/20/2019 [facility] Patient A Negative [address] [place] [address] [phone] Antibody Screen NEGATIVE Urine Culture And 04/20/2019 [facility] Urine Culture SEE RESULT [address] [place], [place] [id number] [phone] 1 *Ascorbic acid is present which may interfere with detection of blood. 2 Standard intensity warfarin therapeutic range: 2.0-3.0 High intensity warfarin therapeutic range: 2.5-3.5 3 SEE RESULT BELOW Name: GALI MCNAMARA : [address]: Navid Delgado MD Acct: [id number] Unit: [id number] AGE: 68 Location: PAT Re04/20/19 SEX: F Status: REG REF SPEC: [id number] ELMA: 04/20/19-[address]: Navid Delgado MD REQ: [id number] RECD: 04/20/19 STATUS: COMP _ SOURCE: URINE SPDESC: ORDERED: Urine Culture QUERIES: Urine Source: Clean Catch Procedure Result Reported Site Urine Culture Final 04/21/19- 1621 ML No Growth (<1,000 CFU/mL) * ML - Main Lab . END OF REPORT DEPARTMENT OF PATHOLOGY, [address] [place] [address] Michael Angeles M.D. Director [facility] # [id number] Procedures Date Code Description Status 04/06/2019 24974 Inject/Drain Joint/Bursa Major W/O US Completed Medical Devices Description No Information Available Encounters Type Date Location Provider Dx Diagnosis Office Visit 04/06/2019 [facility] Navid Delgado, M17.0 Bilateral primary 2:30p at [facility] osteoarthritis of knee Office Visit 03/30/2019 [facility] Navid Delgado, M23.261 Derangement of lat 10:00a at [facility] due to old tear/inj, right knee [...]
--- OUTSIDE RECORDS SUMMARY | 2019-05-03 07:04 | XMS REPORT | Continuity of Care Document ---
:1950 External Reference #:[id number] Author Name Navid Delgado M.D. (transmitted by agent of provider Cristy Sequeira) Address [address] [place] [address] [place] [address] Care Team Providers Name Role Phone Camacho Diez PA-C - Care Team Information Area Forester [phone] Physician Vice Admiral Problems Description No Information Available Social History [...] H/L Range Note Urinalysis Profile 04/20/2019 [facility] Urine Color Yellow [address] [place] [address] [phone] Urine Appearance Clear Urine Specific [place] 1.015 Normal 1.010-1.030 Urine pH 6.0 Normal 5-9 Urine Urobilinogen Negative Negative Urine Ketones Negative Negative Urine Protein Negative Negative Urine Leukocytes Negative Negative Urine Blood Negative Negative * * Abnormal Negative 1 Urine Nitrite Negative Negative Urine Bilirubin Negative Negative Urine Glucose Negative Negative Inr/Protime 04/20/2019 [facility] Inr 0.99 Normal 0.82-1.[address] [place], [place] [address] [phone] Laboratory test 04/20/2019 [facility] Partial 31.4 Normal 26.0 -38.[address] [place] [address] Time PTT [phone] Type & Screen 04/20/2019 [facility] Patient A Negative [address] [place] [place] [address] [phone] Antibody Screen NEGATIVE Urine Culture And 04/20/2019 [facility] Urine Culture SEE RESULT [address] [place], [place] [address] [phone] 1 *Ascorbic acid is present which may interfere with detection of blood. 2 Standard intensity warfarin therapeutic range: 2.0-3.0 High intensity warfarin therapeutic range: 2.5-3.5 3 SEE RESULT BELOW Name: GALI MCNAMARA : [address]: Navid Delgado MD Acct: [id number] Unit: [id number] AGE: 68 Location: PAT Re04/20/19 SEX: F Status: REG REF SPEC: [id number] ELMA: 04/20/19-[address]: Navid Delgado MD REQ: [id number] RECD: 04/20/19 STATUS: COMP _ SOURCE: URINE SPDESC: ORDERED: Urine Culture QUERIES: Urine Source: Clean Catch Procedure Result Reported Site Urine Culture Final 04/21/19- 1621 ML No Growth (<1,000 CFU/mL) * ML - Main Lab . END OF REPORT DEPARTMENT OF PATHOLOGY, [address] [place] [address] Michael Angeles M.D. Director [facility] # [id number] Procedures Date Code Description Status 04/06/2019 42975 Inject/Drain Joint/Bursa Major W/O US Completed Medical Devices Description No Information Available Encounters Type Date Location Provider Dx Diagnosis Office Visit 04/06/2019 [facility] Alex Vance7.0 Bilateral primary 2:30p [facility] osteoarthritis of [place] knee Office Visit 03/30/2019 [facility] Navid Delgado M23.261 Derangement of lat 10:00a [facility] due to old AT [place] tear/inj, right knee M17.11 Unilateral primary osteoarthritis, [...] 1:30 pm - Navid Delgado M.D. at [facility] AT Itxebqok03/30/2019 10:15 am - NINI Szymanski at [facility]05/03/2019 10:15 am - Navid Delgado M.D. at [facility]04/06/2019 - Navid Delgado M.D.M17.0 Bilateral primary osteoarthritis of knee Functional Status Description No Information Available Mental Status Description No Information Available Referrals Description No Information Available
--- OUTSIDE RECORDS SUMMARY | 2019-05-03 07:04 | XMS REPORT | Summary of Care ---
:1950 Author Organization [facility] Address [address] [address] Care Team Providers Name Role Phone Camacho Diez PA-C Primary Care Provider Reason for Referral Refer to Department Only (Routine) Status Reason Specialty Diagnoses / Referred By Referred To Procedures Contact Contact Authorized CARDIOLOGY / Diagnoses Essential hypertension Left bundle branch block Pre-op exam Aleena Bae Cardiology DO [facility] [address] [facility] [address] [place] [address] Phone: Fax: Diagnostic Testing (Routine) Status Reason Specialty Diagnoses / Referred By Referred To Procedures Contact Contact Authorized CARDIOLOGY / Diagnoses Left bundle branch block Pre-op exam Aleena Bae Cardiology Procedures DOBUTAMINE STRESS ECHO DO [facility] [address] [place] [address] Phone: Fax: Reason for Visit Reason Comments Pre-op Exam RTK Encounter Details Date Type Department Care Team Description 04/16/2019 Office Visit James Bae Pre-op exam (Primary Dx); Practice DO Nasir Primary osteoarthritis of right knee; [address] Encounter for preprocedural cardiovascular examination; [place] [address] [place], [place] Essential hypertension; [phone] [address] Depression, unspecified depression type; [phone] Left bundle branch block Allergies Active Allergy Reactions Severity Noted Date Comments Epinephrine Hcl INSURANCE CLAIMS SPECIALIST Reaction 01/03/2010 Procaine Other 07/17/2010 documented as of this encounter (statuses as of 04/19/2019) Medications Medication Sig Dispensed Refills Start End [...] by 8 Oral Tab mouth once daily nitrofurantoin take 1 30 Cap 2 Active monohydrate capsule by 9 macrocrystal (MACROBID) mouth twice 100 MG Oral Cap a day fluticasone (FLONASE) instill 2 16 g 5 [...] Tab tablet by 9 mouth once daily lisinopril (PRINIVIL, take 1 90 Tab 0 Active ZESTRIL) 5 MG Oral Tab tablet by 9 mouth once daily sertraline (ZOLOFT) 50 Take 1 Tab 90 Tab 1 Active MG Oral TabIndications: by mouth 9 Depression, unspecified DAILY. depression type Blood Pressure 1 Kit by 1 Device 0 10/13/19 Active Monitoring (BLOOD Does not 9 20 PRESSURE KIT) Does not apply route apply DAILY for DeviceIndications: 180 days. Essential hypertension Chromium Picolinate 500 Take by 0 04/16/20 Discontinued MCG Oral Tab mouth. 19 (Patient stopped the medication) BIOTIN PO Take 2,000 0 04/16/20 Discontinued mcg by 19 (Patient stopped mouth. the medication) fluconazole (DIFLUCAN) Take 1 Tab 1 Tab 0 04/16/20 Discontinued 150 MG Oral by mouth 8 19 (Therapy TabIndications: DAILY. 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 06/19/2006 documented as of this encounter (statuses as of 04/19/2019) Resolved Problems Problem Noted Date Resolved Date Effusion of shoulder joint 03/02/2007 10/12/2010 Other screening mammogram 02/11/2007 10/12/2010 Unspecified sinusitis (chronic) 12/23/2006 10/12/2010 Urinary tract infection, site not specified 05/20/2006 10/12/2010 documented as of this encounter (statuses as of 04/19/2019) Immunizations Name Administration Dates Next Due Depo [...] Sign Reading Time Taken Comments Blood Pressure 154/84 04/16/2019 10:38 AM EDT Pulse 83 04/16/2019 9:59 AM EDT Temperature 36.4 04/16/2019 9:59 AM EDT C (97.5 F) Respiratory Rate 16 04/16/2019 9:59 AM EDT Oxygen Saturation 98% 04/16/2019 9:59 AM EDT Inhaled Oxygen Concentration - - Weight 63.5 kg (140 lb) 04/16/2019 9:59 AM EDT Height 160 cm (5' 3") 04/16/2019 9:59 AM EDT Body Mass Index 24.8 04/16/2019 9:59 AM EDT documented in this encounter Patient Instructions Patient InstructionsNasir Bae DO - 04/16/2019 10:00 AM EDTOrder placed for stress echocardiogram as well as appointment with rubber goods repairer for finding of left bundle branch block. Continue current regimen of antihypertensives including lisinopril 5 mg daily and HCTZ 25 mg daily.Monitor home blood pressures twice daily and record in a log for review. Have blood work done following visit today. documented in this encounter Progress Notes Nasir Bae DO - 04/16/2019 10:00 AM EDT PATIENT: Sonia Field : 1950 DATE OF SERVICE: 04/16/2019 CHIEF COMPLAINT: Chief Complaint Patient presents with Pre-op Exam RTK Subjective HISTORY OF PRESENT ILLNESS: Sonia Field is a 68-y.o. female. 68-year old female presents to clinic for preoperative evaluation. Patient has past medical historysignificant for depression, hypertension. Patient is scheduled to undergo right total knee replacement on 05/03/[address] Delgado at [facility]. Patient presents today with blood pressure initially hypertensive at 190/108 that improved to 154/84 on recheck. Patient states she did not take blood pressure medications this morning but typically takes lisinopril 5 mg daily and HCTZ 25 mgdaily. Patient states that blood pressures are typically well controlled at home on current regimen. Patient does report recent history of chest pain approximately 1 year ago for which she was seen at [facility] and underwent testing of serial cardiac enzymes. She denies stress test atthat time. Patient reports previous stress test 15 years ago. Patient had EKG performed in office today demonstrating left bundle branch block. Patient reports known history of this but states she has not previously been worked up for this finding. Patient does have family history of CAD in her mother who developed symptoms at the age of 60. Patient denies any prior personal history of CAD. Patient denies any active chest pain, shortness of breath, dizziness, weakness, fatigue, palpitations, lower extremity edema. Previous history of anesthesia complications: no Personal history of malignant hyperthermia: no Family history of malignant hyperthermia: no History of DVTs: no Chest pain: no Dyspnea: no Recent illness/infection: no Recent antibiotic use:no Recent steroid use: no History of DAVID: no Past Medical History: Diagnosis Date Arthritis History of breast surgery Hypertension Other postprocedural status(V45.89) Postmenopausal Family History Problem Relation Age of Onset [...] by mouth once daily lisinopril (PRINIVIL, ZESTRIL) 5 MG Oral Tab take 1 tablet by mouth once daily loratadine (CLARITIN,ALAVERT) 10 MG Oral Tab Take [...] this visit. Allergies Allergen Reactions Epinephrine Hcl INSURANCE CLAIMS SPECIALIST Reaction Novacain [Procaine] Other Social History Socioeconomic [...] file Gets together: Not on file Attends restorationist service: Not on file Active member of [...] file Social History Narrative Not on file REVIEW OF SYSTEMS: Review of Systems Constitutional: Negative for chills, fever, malaise/fatigue and weight loss. HENT: Negative for congestion and sore throat. Eyes: Negative for blurred vision and double vision. Respiratory: Negative for cough, sputum production and shortness of breath. Cardiovascular: Negative for chest pain and palpitations. Gastrointestinal: Negative for abdominal pain, nausea and vomiting. Genitourinary: Negative for dysuria. Musculoskeletal: Positive for joint pain. Negative for back pain and myalgias. Neurological: Negative for dizziness and headaches. Psychiatric/Behavioral: Negative for depression and suicidal ideas. Objective PHYSICAL EXAM: VITALS: BP 154/84 | Pulse 83 | Temp 97.5 F (36.4 C) (Tympanic) | Resp 16 | Ht 5' 3" (1.6 m) | Wt 140 lb (63.5 kg) | SpO2 98% | BMI 24.80 kg/ m Body mass index is 24.8 kg/m. Physical Exam Constitutional: She is oriented to person, place, and time. She appears well- developed and well-nourished. HENT: Mouth/Throat: Oropharynx is clear and moist. Eyes: Pupils are equal, round, and reactive to light. EOM are normal. Neck: Normal range of motion. Neck supple. No thyromegaly present. Cardiovascular: Normal rate and regular rhythm. Pulmonary/Chest: Effort normal and breath sounds normal. Abdominal: Soft. Bowel sounds are normal. She exhibits no distension. There is no tenderness. Musculoskeletal: She exhibits tenderness. Lymphadenopathy: She has no cervical adenopathy. Neurological: She is alert and oriented to person, place, and time. Skin: Skin is warm and dry. Psychiatric: She has a normal mood and affect. Her behavior is normal. Nursing note and vitals reviewed. ASSESSMENT / IMPRESSION: ICD-9-CM ICD-10-CM 1. Pre-op exam V72.84 Z01.818 DOBUTAMINE STRESS ECHO REFER TO CARDIOLOGY (GENERAL) CBC NO DIFFERENTIAL BASIC METABOLIC PANEL AMBULATORY 12 LEAD EKG (GLOBAL) AMBULATORY 12 LEAD EKG (GLOBAL) 2. Depression, unspecified depression type 311 F32.9 sertraline (ZOLOFT) 50 MG Oral Tab 3. Essential hypertension 401.9 I10 Blood Pressure Monitoring (BLOOD PRESSURE KIT) Does not apply Device REFER TO CARDIOLOGY (GENERAL) CBC NO DIFFERENTIAL BASIC METABOLIC PANEL 4. Left bundle branch block 426.3 I44.7 DOBUTAMINE STRESS ECHO REFER TO CARDIOLOGY (GENERAL) 5. Primary osteoarthritis of right knee 715.16 M17.11 6. Encounter for preprocedural cardiovascular examination V72.81 Z01.810 AMBULATORY 12 LEAD EKG (GLOBAL) Plan Due to patient's finding of left bundle branch block on EKG, will refer patient for dobutamine echocardiogram as well as cardiology follow-up for preoperative evaluation. Patient's blood pressures remain hypertensive at visit but patient states she did not take blood pressure medication day of examination. Patient instructed to log home blood pressure readings until seen in cardiology clinic for review. Contact office if blood pressures remain in excess of 140/90. Author: Nasir Bae DO 04/19/2019 07:51 documented in this encounter Plan of Treatment Date Type Specialty Care Team Description 04/29/2019 Orders Only Cardiology 04/29/2019 Office Visit Cardiology Pedro Pablo Hammond MD [address] [address] [phone] 02/28/2020 Ocular Visit Optometry Guzman Handley, OD [address] [place] [address] [phone] Name Type Priority Associated Diagnoses Order Schedule DOBUTAMINE STRESS ECHO CV Lab Routine Left bundle branch block Expected: 04/16/2019, Pre-op exam Expires: 05/20/2020 AMBULATORY 12 LEAD EKG EKG Routine Pre-op exam Ordered: 04/16/2019 (GLOBAL) Name Type Priority Associated Diagnoses Order Schedule REFER TO CARDIOLOGY Referral Routine Essential hypertension Expected: 04/16/2019, (GENERAL) Left bundle branch Expires: 04/16/2020 block Pre-op exam Health Maintenance Due Date Last Done Comments [...] (2 of 2 03/05/2020 03/05/2019 - PPSV23) COLONOSCOPY SCREENING 01/22/2021 01/22/2011 (Declined) HEPATITIS C SCREENING Completed 01/23/2017 HPV IMMUNIZATION SERIES Aged Out No longer eligible based on patient's age to complete this topic MENINGOCOCCAL VACCINE IMM Aged Out No longer eligible based on patient's age to complete this topic documented as of this encounter Goals Goal Patient Goal Associated Recent Patient-Stated? Author Type Problems Progress Blood Pressure Blood Pressure Hypertension 154/84 No Rohl, < 140/90 (04/16/2019 Camacho, 10:38 AM EDT) CALEB Note: Hypertension Care Plan [...] Educational Resources. record my blood pressure results. Tova is safe and secure way for you [...] Educational Resources: National Heart, Lung, & Blood [place] http://nhlbi.nih.gov/hbp/index.html The DASH Diet Eating Plan http://www.nhlbi.nih.gov/health/health-topics/ topics/dash/ Academy of Nutrition & DIetetics http://eatright.org National Smoking Cessation Site http://smokefree.gov Blood Pressure < Blood Pressure 154/84 (04/16/2019 No Camacho Diez PA-C 150/90 10:38 AM EDT) Note: This is an individualized [...] Depression 3 (10/10/2017 6:01 PM No Camacho Diez PA-C (PHQ-9) total score < 5 EST) Note: This is an individualized treatment (depression) goal for Sonia Field: Displayed above is your goal for a depression screening (PHQ-9) score that would indicate good control of your depression. Keep a regular sleep schedule Lifestyle No Camacho Diez PA-C Note: This is an individualized lifestyle goal for Sonia Field: Please maintain a regular sleep schedule. This may help with some symptoms of depression. Take all prescribed medications as Self-management No Camacho Diez PA-C directed Note: This is an individualized [...] Procedure Name Priority Date/Time Associated Diagnosis Comments AMBULATORY 12 LEAD Routine 04/16/2019 2:16 Pre-op exam Results for this EKG (GLOBAL) PM EDT Encounter for procedure are in preprocedural the results cardiovascular section. examination documented in this encounter Results AMBULATORY 12 LEAD EKG (GLOBAL) (04/16/2019 2:16 PM EDT) Ventricular Rate 78 BPM CARDIOLOGY DEPARTMENT Atrial rate 78 BPM CARDIOLOGY DEPARTMENT P-R Interval 118 ms CARDIOLOGY DEPARTMENT QRS Duration 136 ms CARDIOLOGY DEPARTMENT Q-T Interval 400 ms CARDIOLOGY DEPARTMENT QTC Calculation 456 ms CARDIOLOGY (Bezet) DEPARTMENT P [place] 54 degrees CARDIOLOGY DEPARTMENT R [place] 9 degrees CARDIOLOGY DEPARTMENT T [place] 146 degrees CARDIOLOGY DEPARTMENT Diagnosis Line Normal sinus rhythm CARDIOLOGY Left bundle branch block DEPARTMENT Abnormal ECG No previous ECGs available Confirmed by NASIR BAE DO ([id number]) ([id number]) on 04/19/2019 7:45:55 AM Specimen Performing Organization Address [facility] Phone Number CARDIOLOGY DEPARTMENT BASIC METABOLIC PANEL (04/16/2019 11:07 AM EDT) [facility] Glucose 89 70 - 99 mg/dl [facility] BUN 13 7 - 17 mg/dl [facility] Creatinine 0.6 (L) 0.7 - 1.2 mg/dl [facility] Sodium 141 134 - 145 mmol/L [facility] Potassium 4.2 3.5 - 5.1 mmol/L [facility] Chloride 104 98 - 107 mmol/L [facility] CO2 29 22 - 30 mmol/L [facility] Calcium 9.7 8.3 - 10.1 mg/dl [facility] eGFR >60 See Interpretation [facility] Comment: Below ml/min/1.73ml [facility] Estimated GFR Interpretation: Above 60ml/min/1.73m2 = Normal Renal Function 30-59 ml/min/1.73m2 = Stage 3 Chronic Kidney Disease 15-29 ml/min/1.73m2 = Stage 4 Chronic Kidney Disease Less than 15 ml/min/1.73m2 = Stage 5 Chronic Kidney Disease The GFR value is calculated using the Modification of Diet in Renal Disease ( MDRD) Study Equation which can be found at: https://www.kidney.org/content/xusq-ydwyk-dzvwnoqk BUN/Creatinine 22 6 - 22 RATIO [facility] Anion Gap 8 3 - 11 mmol/L [facility] Specimen Blood Performing Organization Address City/[facility]/Zipcode Phone Number [facility] [address] [place] [address] [address] CBC NO DIFFERENTIAL (04/16/2019 11:07 AM EDT) WBC Count 6.76Comment: 3.98 - 10.04 [facility] Methodology was K/uL [facility] changed 08/06/2018. Please note updated reference range and units. RBC Count 4.59 3.93 - 5.22 [facility] M/UL [facility] Hemoglobin 13.9 11.2 - 15.7 [facility] [facility] g/dL [facility] Hematocrit 41.2 34.1 - 44.9 % [facility] MCV 89.8 79.4 - 94.8 [facility] FL [facility] MCH 30.3 25.6 - 32.2 [facility] PG [facility] MCHC 33.7 32.2 - 35.5 [facility] g/dL [facility] Platelet Count 290 182 - 369 [facility] K/uL [facility] MPV 10.3 9.4 - 12.3 [place] [facility] RDW 12.2 11.7 - 14.4 % [facility] Specimen Blood Performing Organization Address City/State/[facility]ode Phone Number [facility] [address] [place] [address] [address] documented in this encounter Visit Diagnoses Diagnosis Pre-op exam - Primary Preoperative examination, unspecified Primary osteoarthritis of right knee Primary localized osteoarthrosis, lower leg Encounter for preprocedural cardiovascular examination Pre-operative cardiovascular examination Essential hypertension Unspecified essential hypertension Depression, unspecified depression type Left bundle branch block Other left bundle branch block documented in this encounter Insurance Payer Benefit Plan / Subscriber ID Effective Dates Phone Address Type Group [facility] MEDICARE [facility] xxxxxxxxxxxx 2018-Present [facility] ADVANTAGE MEDICARE BLUE PPO [phone]) (Work) documented as of this encounter Advance Directives Type Date Recorded Patient Sourcing Coordinator Explanation Advance Directives 04/09/2012 8:46 AM Health Care Proxy
--- OUTSIDE RECORDS SUMMARY | 2019-05-03 07:04 | XMS REPORT | Continuity of Care Document ---
:1950 External Reference #:[id number] Author Name Navid Delgado M.D. (transmitted by agent of provider Ava Harper) Address [address] [facility] [place] [address] Problems Description No Information Available Social History Type Date Description Comments Sex Unknown ETOH Use Denies alcohol use Tobacco Use Start: Unknown End: Patient is a former smoker Unknown Smoking Status Reviewed: 03/30/19 Patient is a former smoker Exercise Type/Frequency [...] Available Vital Signs Date Vital Result Comment 03/30/2019 9:35am Height 63 inches 5'3" Weight 140.00 lb Heart Rate 69 /min BP Systolic Sitting 140 mmHg BP Diastolic Sitting 76 mmHg Body Temperature 97.8 F BMI (Body Mass Index) 24.8 kg/m2 01/27/2018 11:46am Height 63 inches 5'3" Weight 140.00 lb Heart Rate 76 /min BP Systolic Recheck 126 mmHg BP Diastolic Recheck 84 mmHg Respiratory Rate 16 /min Body Temperature 97.7 F BMI (Body Mass Index) 24.8 kg/m2 Results Description No Information Available Procedures Description No Information Available Medical Devices Description No Information Available Encounters Description No Information Available Assessments Date Code Description Provider 03/30/2019 M23.261 Derangement of other lateral meniscus due to Navid Delgado M.D. old tear or injury, right knee Plan of Treatment Future Appointment(s):04/06/2019 2:30 pm - Navid Delgado M.D. at [facility] AT Znjvqcin03/27/2019 - Navid Delgado M.D.M23.261 Derangement of other lateral meniscus due to old tear or injury, right kneeNew Xrays:MRI Knee Right W/O, Ordered: 03/30/19Follow up:after MRI is completed Functional Status Description No Information Available Mental Status Description No Information Available Referrals Description No Information Available
--- OUTSIDE RECORDS SUMMARY | 2019-05-03 07:04 | XMS REPORT | Continuity of Care Document ---
:1950 External Reference #:[id number] Author Name Navid Delgado M.D. (transmitted by agent of provider Ava Harper) Address [address] [facility] [place] [address] Care Team Providers Name Role Phone David Caldera MD - Family Medicine Care Team Information Translator Problems Description No Information Available Social History [...] kg/m2 Results Description No Information Available Procedures Date Code Description Status 04/06/2019 83600 Inject/Drain Joint/Bursa Major W/O US Completed Medical Devices Description No Information Available Encounters Description No Information Available Assessments Date Code Description Provider 04/06/2019 M17.12 Unilateral primary osteoarthritis, left knee Navid Delgado M.D. 04/06/2019 M17.11 Unilateral primary osteoarthritis, right knee Navdi Delgado M.D. 03/30/2019 M23.261 Derangement of other lateral meniscus due to Navid Delgado M.D. old tear or injury, right knee Plan of Treatment 04/06/2019 - Navid Delgado M.D.M17.12 Unilateral primary osteoarthritis, left kneeM17.11 Unilateral primary osteoarthritis, right kneeFollow up:4 weeks after surgery Functional Status Description No Information Available Mental Status Description No Information Available Referrals Description No Information Available
[2019-05-03] MEDS ORDERED: Sodium Citrate/Citric Acid* 15 ML UDC ONE (07:55)
[2019-05-03] MEDS ORDERED: ceFAZolin 2 GM in NS PREMIX(*) 2 GM/100 ML BAG IVPB ONE (07:55)
[2019-05-03] MEDS ORDERED: Buffered Lidocaine 1% SYRIN* 1 ML/SYRINGE INTRADERM ONE (07:55)
[2019-05-03] MEDS: Buffered Lidocaine 1% SYRIN* 1 ML/SYRINGE INTRADERM ONE ×2 (08:58→16:17)
[2019-05-03 09:37] LABS: Mean Platelet Volume 8.4 fL (7.4-10.4); Platelet Count 272 10^3/uL (150-450)
[2019-05-03] MEDS ORDERED: Midazolam* 1 MG/ML 5 ML VIAL (5 MG) ONE (10:24)
[2019-05-03] MEDS ORDERED: fentaNYL* 50 MCG/ML 2 ML VIAL (100 MCG VIAL) ONE ×5 (10:24→14:11)
[2019-05-03] MEDS ORDERED: Bupivacaine 0.25% W/EPI* 10 ML SDV ONE (10:27)
[2019-05-03] MEDS ORDERED: Midazolam* 1 MG/ML 2 ML VIAL (2 MG) ONE (11:11)
[2019-05-03] MEDS ORDERED: Propofol* 10 MG/ML 20 ML BTL ONE ×2 (11:57→12:15)
[2019-05-03] MEDS ORDERED: Ondansetron INJ* 2 MG/ML VIAL IV PRN (11:59)
[2019-05-03] MEDS ORDERED: fentaNYL* 50 MCG/ML 2 ML VIAL (100 MCG VIAL) IV PRN (11:59)
[2019-05-03] MEDS ORDERED: Acetaminophen IV 1GM/100ML * 1,000 MG/100 ML VIAL IVPB ONE (11:59)
[2019-05-03] MEDS ORDERED: Naloxone* 0.4 MG/ML 1 ML VIAL IV PRN (11:59)
[2019-05-03] MEDS ORDERED: Ketorolac INJ* 30 MG/ML 1 ML VIAL ONE (13:09)
[2019-05-03] MEDS ORDERED: diPHENhydraMINE IV* 50 MG/ML 1 ml VIAL (BENADRYL) IV PRN (13:44)
[2019-05-03] MEDS ORDERED: diPHENhydraMINE PO* 25 MG PO PRN (13:44)
[2019-05-03] MEDS ORDERED: Magnesium Hydroxide LIQ* 30 ML UDC PO PRN (13:44)
[2019-05-03] MEDS ORDERED: Ondansetron ODT TAB* 4 MG PO PRN (13:44)
[2019-05-03] MEDS ORDERED: Nitrofurantoin Macrocrystals* 100 MG CAP PO PRN (13:48)
[2019-05-03] MEDS ORDERED: Fluticasone NASAL SPRAY 50MCG* 16 gm SPRAY BTL BOTH NARES PRN (13:48)
[2019-05-03] MEDS ORDERED: Acetaminophen IV 1GM/100ML * 100 ML ONE (14:11)
[2019-05-03] MEDS ORDERED: oxyCODONE/Acetamin 5/325 MG* TAB ONE (14:37)
[2019-05-03] MEDS: D5W 1/2 NS 1000 ML BAG* 1,000 ML IV SCH (15:37)
[2019-05-03] MEDS: Morphine INJ* 2 MG/ML 1 ML SYRINGE (TWO MG - NEW SYRINGE VERSION) IV PRN ×2 (15:43→19:55)
[2019-05-03] MEDS: Acetaminophen TAB* 325 MG PO SCH ×2 (15:50→22:46)
[2019-05-03] MEDS: traMADol TAB* 50 MG PO SCH ×2 (16:01→22:45)
[2019-05-03] MEDS: Ketorolac INJ* 30 MG/ML 1 ML VIAL IV PRN ×2 (16:03→22:46)
[2019-05-03] MEDS: oxyCODONE TAB* 5 MG TAB PO PRN ×2 (16:44→21:22)
[2019-05-03] MEDS ORDERED: Warfarin TAB(*) 10 MG PO ONE (17:00)
[2019-05-03] MEDS: Ondansetron INJ* 2 MG/ML VIAL IV PRN (17:16)
[2019-05-03] MEDS: ALPRAZolam TAB* 0.25 MG PO PRN (17:56)
[2019-05-03] MEDS: Cyclobenzaprine TAB* 10 MG PO PRN (17:57)
[2019-05-03] MEDS ORDERED: Acyclovir* 200 MG CAP PO PRN (18:00)
[2019-05-03] MEDS: ceFAZolin 1 GM ADVAN(*) 1 GM in NS 0.9% 50 ML* 50 ML IVPB SCH (18:02)
--- NOTE | 2019-05-03 19:21 | CONS ---
CC: Dr. Nasir Bishop; Dr. Delgado * CONSULTATION REPORT: DATE OF CONSULT: 05/03/19 TIME OF EVALUATION: 2:30 p.m. PRIMARY CARE PROVIDER: Dr. Nasir Bishop at [facility]. REQUESTING PHYSICIAN: Dr. Delgado. REASON FOR CONSULTATION: Management of hypertension. HISTORY OF PRESENT ILLNESS: Mrs. Field is a 68-year-old female with a past medical history of hypertension, depression, and osteoarthritis who underwent a right total knee replacement with Dr. Delgado today. During my evaluation, the patient was complaining of severe pain and had already received 200 mcg of fentanyl IV with no significant response. Otherwise , she offered no other complaints. PAST MEDICAL HISTORY: 1. Hypertension. 2. Depression. 3. Osteoarthritis. 4. Anxiety. MEDICATION LIST: 1. Acyclovir 200 mg p.o. 5 times a day as needed for cold sore. 2. Alprazolam 0.25 mg p.o. t.i.d. as needed for anxiety. 3. Vitamin B12 at 1000 mcg p.o. daily. 4. Estradiol vaginal tablet 10 mcg vaginal weekly. 5. Prempro 1 tablet p.o. at bedtime. 6. Fluticasone nasal spray 2 sprays to both nares daily as needed for allergies. 7. Glucosamine 1 tablet p.o. weekly. 8. Hydrochlorothiazide 25 mg p.o. daily. 9. Ibuprofen 600 mg p.o. q.6 hours p.r.n. for pain. 10. Juice Plus fiber 1 tablet p.o. daily. 11. Probiotic 1 capsule p.o. daily. 12. Lisinopril 5 mg p.o. daily. 13. Loratadine 10 mg p.o. at bedtime. 14. Multivitamin 1 tablet p.o. daily. 15. Nitrofurantoin 100 mg p.o. b.i.d. as needed for UTI. 16. Oxycodone 5 mg p.o. t.i.d. as needed for pain. 17. Sertraline 50 mg p.o. daily. 18. Vitamin A 8000 units p.o. daily. 19. Vitamin D 1000 p.o. daily. 20. Vitamin E 1200 units p.o. daily. ALLERGIES: To ALCOHOL, EPINEPHRINE, and PROCAINE. FAMILY HISTORY: Mother had diabetes, hypertension, and heart disease and her father had cancer. SOCIAL HISTORY: The patient has a prior history of tobacco abuse. No history of alcohol or drug use. Surrogate decision maker is her son, Pratik Swann, phone number is [phone]. REVIEW OF SYSTEMS: A 14-point review of systems was attempted, but it is limited due to the patient's significant pain and already receiving high doses of fentanyl. PHYSICAL EXAMINATION: Vital Signs: Temperature 98.0, heart rate is 65, respiratory rate is 14, oxygen saturation is 100% on room air, blood pressure is 144/56. General: The patient is a pleasant elderly lady, crying during my interview, but apologizing and she is in distress due to pain. HEENT: Pupils are equal. Moist mucous membranes. CVS: Normal S1, S2. Regular rate and rhythm. Chest: Breath sounds present bilaterally. No added sounds. Abdomen: Is soft. Bowel sounds are present. Extremities: There is a cryo unit to her right knee. Neuro: She is alert and oriented x3. Able to move all 4 extremities. ASSESSMENT AND PLAN: Mrs. Field is a 68-year-old lady with a past medical history of hypertension, osteoarthritis, and depression who presented for an elective right total knee arthroplasty. Hospitalist service was consulted to assist with management of her hypertension. 1. Hypertension. We will continue her lisinopril with holding parameters and we will hold her hydrochlorothiazide for now as she is receiving IV fluids. 2. Status post right total knee replacement. Management as per orthopedics. 3. Depression and anxiety. We will continue alprazolam and sertraline. 4. DVT prophylaxis will be with warfarin and heparin as per ortho. 5. Code status is full. TIME SPENT: Approximately 45 minutes were spent with patient interview, medical records review, and physical examination to complete this admission. More than half of this time was spent [id number] with the patient in coordination of care. [id number]/[facility] #: [id number] [facility] SYSTEMAbhishek
[2019-05-03] MEDS ORDERED: [UNRECOGNIZED DRUG - OTHER] PO SCH (21:00)
[2019-05-03] MEDS ORDERED: Estradiol VAGINAL TAB(NF) 10 MCG VAG.TAB VAGINAL SCH (21:00)
[2019-05-03] MEDS: Cetirizine* 10 MG TAB PO SCH (21:21)
[2019-05-03] MEDS: Docusate CAP* 100 MG PO SCH (21:21)
[2019-05-03] MEDS: Magnesium Hydroxide LIQ* 30 ML UDC PO SCH (21:25)
[2019-05-03] MEDS: ESTROGENS PO SCH (21:30)
[2019-05-03] MEDS: MEDROXYPR PO SCH (21:30)
--- NOTE | 2019-05-03 22:09 | OP ---
DATE OF OPERATION: 05/03/19 - ROOM #343 DATE OF : 54 ATTENDING SURGEON: Navid Delgado MD CASH POSTING REPRESENTATIVE: JENNA Szymanski ANESTHESIA: Regional/spinal/general. PRE-OP DIAGNOSIS: Osteoarthritis, right knee. POST-OP DIAGNOSIS: Osteoarthritis, right knee. OPERATIVE PROCEDURE: Right total knee arthroplasty. ESTIMATED BLOOD LOSS: Less than 25 cc. COMPLICATIONS: None. HARDWARE: [employer] V narrow femur, #4 Gwen II tibia, 9 mm polyethylene, 32 mm patellar button. SUMMARY: Ms. Field is a 68-year-old female who has been having troubles with her right knee for some time. She had significant changes in both the patellofemoral and medial compartments where she was [id number] with end- stage changes. She did try with conservative treatment including injections, physical therapy, but still had troubles with pain with activity as well as limitations with even simple ADLs. I discussed with her that a total knee arthroplasty should work well to decrease her pain and improve her function. Risks of surgery such as infection, scar formation, stiffness, DVT, pulmonary embolism, hardware failure, and continued pain were some of the risks discussed. She had been declared medically optimized and wished to proceed. DESCRIPTION OF PROCEDURE: The patient had a femoral nerve block placed in the holding area, was brought back to the OR. Spinal anesthesia was introduced. Dockery catheter was placed. Tourniquet was placed over the proximal right thigh and was used during the case. Total tourniquet time would be 90 minutes. Right knee was prepped and then draped. An Esmarch was used to exsanguinate the leg and the tourniquet was raised. Midline incision was made centered about the patellar, beginning 4 fingerbreadths above the superior pole of the patella so that I could place the pins for the Navio and this came down to the medial side of the tibial tubercle. Incision was carried down through the skin and subcutaneous tissues. Small bleeders encountered were ligated using electrocautery. Extensor mechanism was exposed and a sharp parapatellar arthrotomy was made. Gush of clear yellowish joint fluid was encountered. Osteophytes were immediately evident, as was complete loss of cartilage from both the patellofemoral and medial compartments. Osteophytes were taken down using a rongeur and the fat pad was sharply excised. Soft tissues were sharply elevated from the medial side of the tibia to allow for better exposure. Patella had significant wear and measured approximately 19 mm in thickness. Where she had worn down the bone, she was only 11 mm in thickness, and a nice 8 mm cut was taken leaving approximately 11 mm of patella throughout. Patella was then easily subluxated laterally and the knee was flexed up. Femoral pins for the Navio array were then placed as were the tibial pins 4 fingerbreadths below the level of the tibial tubercle. Array was assembled and little pins were also placed in the femur and tibia. Landmarks were taken using the Navio including the center of the femur, center of the tibia, medial and lateral malleoli as well as Stanly's line. Range of motion views as well as stress views were taken. Using the Navio equipment, templating was then adjusted such that she would have good flexion and extension gaps. Size, rotation, and angle were adjusted until her flexion and extension gaps appeared to have the best balance and plan was then accepted. Thida was then used using the Navio to resect the distal femur so that the cutting block could be placed. Cutting block was then placed, and anterior and posterior femoral cuts followed by the chamfer cuts were taken. Coming down to the tibia, holes were drilled for the tibial cutting guide, and tibial cutting guide was placed. Using the top hat, alignment was double checked to make sure that the angle was good and then the tibia guide was also pinned into place. Proximal tibial cut was taken and it appeared a nice cut was obtained. Placing the 9 mm spacer block, her flexion and extension gaps appeared perfect as was her alignment. Femur was then placed and the notch cut was finished using the reamer and then the wooden box maker. On the tibia, the baseplate was rotated and adjusted so that on the drop maria it would point towards the base of the second metatarsal. Tibial baseplate was then pinned into place. The proximal tibia was drilled and then punched. Trial instrumentation was placed and she came out nicely into full extension, flexed easily. Array pins were then removed to allow for patellar tracking, to check patellar tracking, and without the trial, the patellar did not want to subluxate with some of the flexion maneuvers. A 32 patellar trial button was then placed and now patellar tracking was perfect. Trial instrumentation was removed. The knee was copiously pulse lavaged. Cement was being prepared. Tibia followed by femur and patella were all cemented into place. Excess cement was removed and the cement was allowed to harden. Once the cement had hardened, she was again taken through range of motion and again came out nicely into full extension, flexed easily, and patellar tracking was perfect. Trial polyethylene was removed. The knee was again copiously searched for any additional cement and a few small pieces were found. Knee was again pulse lavaged and polyethylene was then snapped into place. She had the same wonderful motion and stability. Parapatellar arthrotomy was repaired using interrupted #1 Vicryl sutures and tourniquet was let down during the repair. No significant bleeding was encountered. Subcutaneous tissues were reapproximated with 2-0 Vicryl. Skin was closed using funmi. Sterile dressing and Cryo/Cuff were applied in the OR. The patient had started to feel some of the maneuvers while we were doing the case, so general anesthesia had been introduced during the case. LMA was removed in the OR and she was stable on transfer to the recovery room. [id number]/[facility] #: [id number] ESTRADA
[2019-05-04] MEDS: Morphine INJ* 2 MG/ML 1 ML SYRINGE (TWO MG - NEW SYRINGE VERSION) IV PRN (00:08)
[2019-05-04] MEDS: Cyclobenzaprine TAB* 10 MG PO PRN ×3 (00:10→18:18)
[2019-05-04] MEDS ORDERED: HYDROmorphone TAB* 2 MG PO ONE (01:15)
[2019-05-04] MEDS: ceFAZolin 1 GM ADVAN(*) 1 GM in NS 0.9% 50 ML* 50 ML IVPB SCH ×2 (01:44→10:41)
[2019-05-04] MEDS ORDERED: HYDROmorphone TAB* 2 MG PO PRN (02:30)
[2019-05-04] MEDS: Ondansetron INJ* 2 MG/ML VIAL IV PRN ×2 (03:15→14:06)
[2019-05-04] MEDS: D5W 1/2 NS 1000 ML BAG* 1,000 ML IV SCH (03:35)
[2019-05-04] MEDS: traMADol TAB* 50 MG PO SCH ×4 (05:15→22:10)
[2019-05-04] MEDS: Ketorolac INJ* 30 MG/ML 1 ML VIAL IV PRN (05:16)
[2019-05-04] MEDS: Acetaminophen TAB* 325 MG PO SCH ×3 (05:23→22:10)
[2019-05-04 06:30] LABS: Hematocrit 30 % (35-47); Hemoglobin 10.5 g/dL (12.0-16.0); Mean Platelet Volume 8.2 fL (7.4-10.4); Platelet Count 220 10^3/uL (150-450)
[2019-05-04 06:34] LABS: INR 1.18 (0.82-1.09)
[2019-05-04 06:43] LABS: BUN/Creatinine Ratio 13.8 (8-20); Calcium 7.9 mg/dL (8.6-10.3); EGFR African American 125.9 (>60); Potassium 3.3 mmol/L (3.5-5.0)
[2019-05-04] MEDS: HYDROmorphone TAB* 4 MG PO PRN ×5 (07:19→20:23)
[2019-05-04] MEDS ORDERED: Potassium Chlor TAB* 20 MEQ TAB.ER PO ONE (07:52)
--- NOTE | 2019-05-04 07:52 | PN ---
Subjective Date of Service: 05/04/19 Interval History: HOSPITALIST PROGRESS NOTE Patient seen and examined at bedside. Care reviewed and d/w Mona Alvarado RN. Her major issue is still knee pain, still 03/13. No other complaints. Family History: Unchanged from Admission Social History: Unchanged from Admission Past Medical History: Unchanged from Admission Objective Active Medications: Acetaminophen (Tylenol Tab*) 975 mg PO Q8HR [facility] Last Admin: 05/04/19 05:23 Dose: 975 mg Acyclovir (Zovirax Cap*) 200 mg PO FIVE TIMES DAILY PRN PRN Reason: COLD SORE Alprazolam (Xanax Tab*) 0.25 mg PO TID PRN PRN Reason: ANXIETY Last Admin: 05/03/19 17:56 Dose: 0.25 mg Bisacodyl (Dulcolax Supp*) 10 mg NE DAILY PRN PRN Reason: CONSTIPATION Cetirizine HCl (Zyrtec*) 10 mg PO BEDTIME [facility] Last Admin: 05/03/19 21:21 Dose: 10 mg Cyclobenzaprine HCl (Flexeril Tab*) 10 mg PO Q6H PRN PRN Reason: SPASMS Last Admin: 05/04/19 00:10 Dose: 10 mg Diphenhydramine HCl (Benadryl Iv*) 25 mg IV Q6H PRN PRN Reason: PRURITIS Diphenhydramine HCl (Benadryl Po*) 25 mg PO Q6H PRN PRN Reason: PRURITIS Docusate Sodium (Colace Cap*) 100 mg PO BID [facility] Last Admin: 05/03/19 21:21 Dose: 100 mg Estradiol (Vagifem) 10 mcg VAGINAL WEEKLY [facility] Estrogens Conj/Medroxyprogest Acet (Prempro 0.3/1.5 (Nf)) 1 tab PO BEDTIME [facility] Last Admin: 05/03/19 21:30 Dose: Not Given Fluticasone Propionate (Flonase Nasal [place] 50mcg*) 2 spray BOTH NARES DAILY PRN PRN Reason: CONGESTION Heparin Sodium (Porcine) (Heparin Vial(*)) 5,000 units SUBCUT Q8HR [facility] Hydromorphone HCl (Dilaudid Tab*) 4 mg PO Q3H PRN PRN Reason: PAIN SEVERE Last Admin: 05/04/19 07:19 Dose: 4 mg Dextrose/Sodium Chloride (D5w 1/2 Ns 1000 Ml Bag*) 1,000 mls @ 100 mls/hr IV PER RATE [facility] Last Admin: 05/04/19 03:35 Dose: 100 mls/hr Cefazolin Sodium 1 gm/ Sodium (Chloride) 50 mls @ 200 mls/hr IVPB Q8H [facility] Stop: 05/04/19 10:44 Last Admin: 05/04/19 01:44 Dose: 200 mls/hr Ketorolac Tromethamine (Toradol Inj*) 30 mg IV Q6H PRN PRN Reason: PAIN - MILD Last Admin: 05/04/19 05:16 Dose: 30 mg Lactobacillus Rhamnosus (Lactobacillus Acidophilus*) 1 tab PO QAM [facility] Lactulose (Lactulose*) 30 ml PO BID PRN PRN Reason: CONSTIPATION Lisinopril (Prinivil Tab*) 5 mg PO QAM [facility] Magnesium Hydroxide (Milk Of Magnesia Liq*) 30 ml PO BID [facility] Last Admin: 05/03/19 21:25 Dose: 30 ml Magnesium Hydroxide (Milk Of Magnesia Liq*) 30 ml PO Q6H PRN PRN Reason: CONSTIPATION Morphine Sulfate (Morphine Inj (Syringe))*) 2 mg IV Q4H PRN PRN Reason: Pain - Unrelieved Last Admin: 05/04/19 00:08 Dose: 2 mg Multivitamins (Theragran Tab*) 1 tab PO DAILY [facility] Nitrofurantoin Macrocrystals (Macrodantin*) 100 mg PO BID PRN PRN Reason: YEAST INFECTION Nft* (Glucosamine/D3 /Boswellia Karly [ Glucosamine Complex Tablet] 1 Tab) 1 tab PO WEEKLY [facility] Nft*(Juice Plus (Fiber 1 Tab)) 1 tab PO QAM [facility] Nft* (Vitamin A [ Vitamin A] 8,000 Unit) 8,000 unit PO QAM [facility] Ondansetron HCl (Zofran Inj*) 4 mg IV Q6H PRN PRN Reason: NAUSEA Last Admin: 05/04/19 03:15 Dose: 4 mg Ondansetron HCl (Zofran Odt Tab*) 4 mg PO Q6H PRN PRN Reason: NAUSEA Oxycodone HCl (Roxycodone Tab*) 5 mg PO Q4H PRN PRN Reason: Pain - Breakthrough Last Admin: 05/03/19 21:22 Dose: 5 mg Pharmacy Profile Note (Coumadin Daily Reminder*) 1 note FOLLOW UP 1700 CRUZ Sertraline HCl (Zoloft*) 50 mg PO QAM [facility] Tramadol HCl (Ultram*) 50 mg PO Q6H [facility] Last Admin: 05/04/19 05:15 Dose: 50 mg Vitamin B Complex/Vitamin E (B Complex-50*) 1 tab PO QAM [facility] Vitamin E (Vitamin E Cap*) 1,200 unit PO QAM [facility] Vital Signs - 8 hr 05/04/19 05/04/19 05/04/19 00:01 00:08 00:10 Temperature 97.9 F Pulse Rate 66 Respiratory 16 16 16 Rate Blood Pressure 128/57 (mmHg) O2 Sat by Pulse 100 Oximetry 05/04/19 05/04/19 05/04/19 01:37 03:21 03:38 Temperature 99.4 F Pulse Rate 73 Respiratory 18 18 18 Rate Blood Pressure 116/47 (mmHg) O2 Sat by Pulse 97 Oximetry 05/04/19 05/04/19 05/04/19 05:15 07:18 07:19 Temperature Pulse Rate Respiratory 18 18 18 Rate Blood Pressure (mmHg) O2 Sat by Pulse Oximetry Oxygen Devices in Use Now: None Appearance: Pleasant lady sitting up in a recliner in NAD. Eyes: No Scleral Icterus Ears/Nose/Mouth/Throat: Mucous Membranes Moist Neck: Trachea Midline Respiratory: Symmetrical Chest Expansion and Respiratory Effort, Clear to Auscultation Cardiovascular: RRR - Normal S1 and S2 Extremities: - - Right knee CDI, good capillary refill, sensation is intact Neurological: Alert and Oriented x 3, NL Muscle Strength and Tone Result Diagrams: 05/04/19 05:54 05/04/19 05:54 Assess/Plan/Problems-Billing Assessment: Mrs Field is a 68yo F with PMH of HTN, depression, anxiety, osteoarthritis, admitted for elective right total knee arthroplasty. - Patient Problems (1) Status post total right knee replacement Comment: - Management as per Ortho. (2) HTN (hypertension) Comment: - Controlled. - Continue Lisinopril. (3) Depression Current Visit: Yes Status: Acute Code(s): F32.9 - MAJOR DEPRESSIVE DISORDER , SINGLE EPISODE, UNSPECIFIED SNOMED Code(s): 72291635 Comment: - Continue Alprazolam and Sertraline. (4) DVT prophylaxis Comment: - SQ heparin / Warfarin. (5) Full code status Status and Disposition: Hospitalist service will continue to follow.
[2019-05-04] MEDS: oxyCODONE TAB* 5 MG TAB PO PRN ×4 (08:24→23:44)
--- NOTE | 2019-05-04 09:30 | PN ---
Progress Note - Progress Note Date of Service: 05/04/19 SOAP: Subjective: []Pt seen at bedside. She feels well though had a lot of pain overnight which is now better controlled. Denies CP, SOB, dizziness, nausea. Knee pain is still a 7/10 with movement. Objective: []Gen: Appears well , NAD RLE: Right knee dressing CDI, thigh soft, DF/PF intact, DP2+, sensation intact to light touch distally. Calves supple and nontender without erythema, edema or palpable cords Assessment: []POD 1 sp RTK Plan: []WBAT PT Required addition of oral dilaudid overnight. Added additional bowel medications (senna and lactulose). Utilize tylenol, ketorolac, tramadol as primary agents of pain control with oxycodone for breakthrough and dilaudid PO for most severe pain. Vital Signs Temp 98.3 F 05/04/19 08:05 Pulse 71 05/04/19 08:05 Resp 18 05/04/19 08:24 BP 121/47 05/04/19 08:05 Pulse Ox 96 05/04/19 08:05 Intake & Output 05/03/19 05/04/19 05/04/19 18:59 06:59 18:59 Intake Total 1800 720 350 Output Total 1400 1350 300 Balance 400 -630 50 Weight 157 lb 9.6 oz Intake: IV Fluids 1800 LR 1700 NS 100ML, Cefazolin 2G 100 Oral 720 350 Output: Urine 300 Dockery 1400 1350 Other: # Bowel Movements 0 Laboratory Last Values Hgb 10.5 g/dL (12.0-16.0) L 05/04/19 05:54 Hct 30 % (35-47) L 05/04/19 05:54 Plt Count 220 10^3/uL (150-450) 05/04/19 05:54 MPV 8.2 fL (7.4-10.4) 05/04/19 05:54 INR (Anticoag Therapy) 1.18 (0.82-1.09) H 05/04/19 05:54 Sodium 136 mmol/L (135-145) 05/04/19 05:54 Potassium 3.3 mmol/L (3.5-5.0) L 05/04/19 05:54 Chloride 104 mmol/L (101-111) 05/04/19 05:54 Carbon Dioxide 29 mmol/L (22-32) 05/04/19 05:54 Anion Gap 3 mmol/L (2-11) 05/04/19 05:54 BUN 8 mg/dL (6-24) 05/04/19 05:54 Creatinine 0.58 mg/dL (0.51-0.95) 05/04/19 05:54 Est GFR ( Amer) 125.9 (>60) 05/04/19 05:54 Est GFR (Non-Af Amer) 104.0 (>60) 05/04/19 05:54 BUN/Creatinine Ratio 13.8 (8-20) 05/04/19 05:54 Glucose 126 mg/dL (70-100) H 05/04/19 05:54 Calcium 7.9 mg/dL (8.6-10.3) L 05/04/19 05:54
[2019-05-04] MEDS ORDERED: Senna TAB 8.6 mg* TAB PO PRN (09:31)
[2019-05-04] MEDS ORDERED: Polyethylene Glycol 3350* 17 GM PACKET PO PRN (09:31)
[2019-05-04] MEDS: Heparin VIAL(*) 5000 UNITS/ML VIAL (FIVE THOUSAND) SUBCUT SCH ×3 (09:58→18:16)
[2019-05-04] MEDS: Docusate CAP* 100 MG PO SCH ×2 (09:58→20:24)
[2019-05-04] MEDS: Vitamin B Complex TAB PO SCH (09:58)
[2019-05-04] MEDS: Magnesium Hydroxide LIQ* 30 ML UDC PO SCH ×2 (09:58→20:24)
[2019-05-04] MEDS: Lisinopril TAB* 5 MG PO SCH (09:58)
[2019-05-04] MEDS: Sertraline* 50 MG TAB PO SCH (09:58)
[2019-05-04] MEDS: Vitamin THERAPEUTIC TAB PO SCH (09:58)
[2019-05-04] MEDS: Lactobacillus Acidophilus* 1 TAB PO SCH (09:58)
[2019-05-04] MEDS: VITAMIN A 8000 UNIT PO SCH (10:00)
[2019-05-04] MEDS: [UNRECOGNIZED DRUG - OTHER] PO SCH (10:00)
[2019-05-04] MEDS: Vitamin E CAP* 400 UNIT PO SCH (10:02)
[2019-05-04] MEDS: ALPRAZolam TAB* 0.25 MG PO PRN ×2 (10:33→20:24)
[2019-05-04] MEDS ORDERED: Warfarin TAB(*) 6 MG PO ONE (17:00)
[2019-05-04] MEDS: Ketorolac INJ* 30 MG/ML 1 ML VIAL IV SCH ×2 (18:16→23:46)
[2019-05-04] MEDS: Cetirizine* 10 MG TAB PO SCH (20:24)
[2019-05-04] MEDS: ESTROGENS PO SCH (20:24)
[2019-05-04] MEDS: MEDROXYPR PO SCH (20:24)
[2019-05-05] MEDS: HYDROmorphone TAB* 4 MG PO PRN ×4 (01:00→14:22)
[2019-05-05] MEDS: Heparin VIAL(*) 5000 UNITS/ML VIAL (FIVE THOUSAND) SUBCUT SCH (01:43)
[2019-05-05] MEDS: traMADol TAB* 50 MG PO SCH ×4 (03:28→21:18)
[2019-05-05] MEDS: Acetaminophen TAB* 325 MG PO SCH ×3 (05:36→21:18)
[2019-05-05] MEDS: Ketorolac INJ* 30 MG/ML 1 ML VIAL IV SCH ×4 (05:36→23:22)
[2019-05-05 06:58] LABS: Hematocrit 28 % (35-47); Hemoglobin 9.8 g/dL (12.0-16.0); Mean Platelet Volume 8.1 fL (7.4-10.4); Platelet Count 196 10^3/uL (150-450)
[2019-05-05 07:01] LABS: INR 2.29 (0.82-1.09)
[2019-05-05] MEDS: oxyCODONE TAB* 5 MG TAB PO PRN ×2 (07:39→20:02)
[2019-05-05] MEDS: Cyclobenzaprine TAB* 10 MG PO PRN ×2 (07:39→20:01)
--- NOTE | 2019-05-05 08:23 | PN ---
Subjective Date of Service: 05/05/19 Interval History: Sonia is feeling well today--pain is controlled, appetite is good. Has not had a bowel movement yet. Using Incentive spirometer. No SOB, chest pain. She had some nausea yesterday when working [facility], none now. Family History: Unchanged from Admission Social History: Unchanged from Admission Past Medical History: Unchanged from Admission Objective Active Medications: Acetaminophen (Tylenol Tab*) 975 mg PO Q8HR [facility] Last Admin: 05/05/19 05:36 Dose: 975 mg Acyclovir (Zovirax Cap*) 200 mg PO FIVE TIMES DAILY PRN PRN Reason: COLD SORE Alprazolam (Xanax Tab*) 0.25 mg PO TID PRN PRN Reason: ANXIETY Last Admin: 05/04/19 20:24 Dose: 0.25 mg Bisacodyl (Dulcolax Supp*) 10 mg [place] DAILY PRN PRN Reason: CONSTIPATION Cetirizine HCl (Zyrtec*) 10 mg PO BEDTIME [facility] Last Admin: 05/04/19 20:24 Dose: 10 mg Cyclobenzaprine HCl (Flexeril Tab*) 10 mg PO Q6H PRN PRN Reason: SPASMS Last Admin: 05/05/19 07:39 Dose: 10 mg Diphenhydramine HCl (Benadryl Iv*) 25 mg IV Q6H PRN PRN Reason: PRURITIS Diphenhydramine HCl (Benadryl Po*) 25 mg PO Q6H PRN PRN Reason: PRURITIS Docusate Sodium (Colace Cap*) 100 mg PO BID [facility] Last Admin: 05/04/19 20:24 Dose: 100 mg Estradiol (Vagifem) 10 mcg VAGINAL WEEKLY [facility] Estrogens Conj/Medroxyprogest Acet (Prempro 0.3/1.5 (Nf)) 1 tab PO BEDTIME [facility] Last Admin: 05/04/19 20:24 Dose: Not Given Fluticasone Propionate (Flonase Nasal [place] 50mcg*) 2 spray BOTH NARES DAILY PRN PRN Reason: CONGESTION Hydromorphone HCl (Dilaudid Tab*) 4 mg PO Q3H PRN PRN Reason: PAIN SEVERE Last Admin: 05/05/19 06:34 Dose: 4 mg Ketorolac Tromethamine (Toradol Inj*) 30 mg IV Q6H [facility] Stop: 05/07/19 17:59 Last Admin: 05/05/19 05:36 Dose: 30 mg Lactobacillus Rhamnosus (Lactobacillus Acidophilus*) 1 tab PO QAM [facility] Last Admin: 05/04/19 09:58 Dose: 1 tab Lactulose (Lactulose*) 30 ml PO DAILY PRN PRN Reason: CONSTIPATION Lisinopril (Prinivil Tab*) 5 mg PO QAM [facility] Last Admin: 05/04/19 09:58 Dose: 5 mg Magnesium Hydroxide (Milk Of Magnesia Liq*) 30 ml PO BID [facility] Last Admin: 05/04/19 20:24 Dose: 30 ml Magnesium Hydroxide (Milk Of Magnesia Liq*) 30 ml PO Q6H PRN PRN Reason: CONSTIPATION Morphine Sulfate (Morphine Inj (Syringe))*) 2 mg IV Q4H PRN PRN Reason: Pain - Unrelieved Last Admin: 05/04/19 00:08 Dose: 2 mg Multivitamins (Theragran Tab*) 1 tab PO DAILY [facility] Last Admin: 05/04/19 09:58 Dose: 1 tab Nft* (Glucosamine/D3 /Boswellia Karly [ Glucosamine Complex Tablet] 1 Tab) 1 tab PO WEEKLY [facility] Nft*(Juice Plus (Fiber 1 Tab)) [facility] [place] Admin: 05/04/19 10:00 Dose: Not Given Nft* (Vitamin A [ Vitamin A] 8,000 Unit) 8,000 unit PO QAM [facility] Last Admin: 05/04/19 10:00 Dose: Not Given Ondansetron HCl (Zofran Inj*) 4 mg IV Q6H PRN PRN Reason: NAUSEA Last Admin: 05/04/19 14:06 Dose: 4 mg Ondansetron HCl (Zofran Odt Tab*) 4 mg PO Q6H PRN PRN Reason: NAUSEA Oxycodone HCl (Roxycodone Tab*) 5 mg PO Q4H PRN PRN Reason: Pain - Breakthrough Last Admin: 05/05/19 07:39 Dose: 5 mg Pharmacy Profile Note (Coumadin Daily Reminder*) 1 note FOLLOW UP 1700 [facility] Last Admin: 05/04/19 16:43 Dose: 1 note Polyethylene Glycol/Electrolytes (Miralax*) 17 gm PO DAILY PRN PRN Reason: CONSTIPATION Senna (Senokot 8.6 Mg Tab*) 1 tab PO BEDTIME PRN PRN Reason: CONSTIPATION Sertraline HCl (Zoloft*) [facility] [place] Admin: 05/04/19 09:58 Dose: 50 mg Tramadol HCl (Ultram*) 50 mg PO Q6H [facility] Last Admin: 05/05/19 03:28 Dose: 50 mg Vitamin B Complex/Vitamin E (B Complex-50*) 1 tab PO [facility] Last Admin: 05/04/19 09:58 Dose: 1 tab Vitamin E (Vitamin E Cap*) 1,200 unit PO [facility] Last Admin: 05/04/19 10:02 Dose: 1,200 unit Vital Signs - 8 hr 05/05/19 05/05/19 05/05/19 01:00 01:45 03:00 Temperature Pulse Rate Respiratory 18 17 16 Rate Blood Pressure (mmHg) O2 Sat by Pulse Oximetry 05/05/19 05/05/19 05/05/19 03:15 03:28 06:34 Temperature 98 F Pulse Rate 76 Respiratory 17 18 18 Rate Blood Pressure 96/50 (mmHg) O2 Sat by Pulse 96 Oximetry 05/05/19 05/05/19 07:22 07:39 Temperature 98 F Pulse Rate 82 Respiratory 18 16 Rate Blood Pressure 95/49 (mmHg) O2 Sat by Pulse 93 Oximetry Oxygen Devices in Use Now: None Appearance: alert, well appearing Eyes: No Scleral Icterus Ears/Nose/Mouth/Throat: NL Teeth, Lips, Gums Neck: NL Appearance and Movements; NL JVP Respiratory: Symmetrical Chest Expansion and Respiratory Effort, Clear to Auscultation Cardiovascular: NL Sounds; No Murmurs; No JVD Lymphatic: No Cervical Adenopathy Extremities: - - R knee immobilized, feet are warm, pulses 2+ Skin: No Rash or Ulcers Result Diagrams: 05/05/19 06:33 05/04/19 05:54 Assess/Plan/Problems-Billing Assessment: Mrs Field is a 68yo F with PMH of HTN, depression, anxiety, osteoarthritis, admitted for elective right total knee arthroplasty. - Patient Problems (1) Status post total right knee replacement Current Visit: Yes Status: Acute Code(s): Z96.651 - PRESENCE OF RIGHT ARTIFICIAL KNEE JOINT SNOMED Code(s): 7942905254741 Comment: pain controlled, needs to have a bowel movement (2) HTN (hypertension) Current Visit: Yes Status: Acute Code(s): I10 - ESSENTIAL (PRIMARY) HYPERTENSION SNOMED Code(s): 41466394 Comment: controlled on lisinopril; HCTZ on hold, continue (3) Depression Current Visit: Yes Status: Acute Code(s): F32.9 - MAJOR DEPRESSIVE DISORDER , SINGLE EPISODE, UNSPECIFIED SNOMED Code(s): 63850429 Comment: Continue Alprazolam and Sertraline at home doses (4) DVT prophylaxis Current Visit: Yes Status: Acute Code(s): Z29.9 - ENCOUNTER FOR PROPHYLACTIC MEASURES, UNSPECIFIED SNOMED Code(s): 277222050 Comment: therapeutic on warfarin today Status and Disposition: Hospitalist service will continue to follow.
[2019-05-05] MEDS: [UNRECOGNIZED DRUG - OTHER] PO SCH (09:35)
[2019-05-05] MEDS: VITAMIN A 8000 UNIT PO SCH (09:35)
[2019-05-05] MEDS: Lisinopril TAB* 5 MG PO SCH (09:36)
[2019-05-05] MEDS: Vitamin E CAP* 400 UNIT PO SCH (09:37)
[2019-05-05] MEDS: Vitamin B Complex TAB PO SCH (09:37)
[2019-05-05] MEDS: Vitamin THERAPEUTIC TAB PO SCH (09:37)
[2019-05-05] MEDS: Magnesium Hydroxide LIQ* 30 ML UDC PO SCH ×2 (09:37→21:18)
[2019-05-05] MEDS: Sertraline* 50 MG TAB PO SCH (09:38)
[2019-05-05] MEDS: Docusate CAP* 100 MG PO SCH ×2 (09:38→21:27)
[2019-05-05] MEDS: Lactobacillus Acidophilus* 1 TAB PO SCH (09:38)
[2019-05-05] MEDS: Ondansetron INJ* 2 MG/ML VIAL IV PRN (10:30)
[2019-05-05] MEDS ORDERED: Bisacodyl SUPP* 10 MG SUPP PR PRN (13:44)
[2019-05-05] MEDS ORDERED: Prochlorperazine TAB* 5 MG PO PRN (14:07)
[2019-05-05] MEDS ORDERED: PROCHLORPERAZINE INJ 5 MG/ML 2 ML VIAL IV PRN (14:07)
--- NOTE | 2019-05-05 14:13 | PN ---
Progress Note - Progress Note Date of Service: 05/05/19 SOAP: Subjective: []Pt seen at bedside. She is nauseous and vomit after eating lunch, she felt better after vomiting. Denies CP, SOB, dizziness, abd pain. Objective: []en: Appears well , NAD RLE: Right knee dressing changed, incision is CDI, thigh soft, DF/PF intact, DP2 +, sensation intact to light touch distally. Calves supple and nontender without erythema, edema or palpable cords Assessment: []POD 2 sp RTK Plan: []WBAT PT Pain is better controlled today Nausea: added compazine. Suggest suppository if no BM within the day. Due to inability to have INRs drawn outpt will switch to eliquis per Dr Delgado. She will be on heparin in house, will monitor her INR. Anticipate she will start eliquis 2.5 mg po BID on friday. Vital Signs Temp 98 F 05/05/19 07:22 Pulse 82 05/05/19 07:22 Resp 16 05/05/19 10:30 BP 95/49 05/05/19 07:22 Pulse Ox 93 05/05/19 07:22 Intake & Output 05/04/19 05/05/19 05/05/19 18:59 06:59 18:59 Intake Total 950 1680 240 Output Total 700 600 300 Balance 250 1080 -60 Intake: Oral 950 1680 240 Output: Urine 700 600 300 Other: Estimated Void Large # Bowel Movements 0 # Voids 1 Laboratory Last Values Hgb 9.8 g/dL (12.0-16.0) L 05/05/19 06:33 Hct 28 % (35-47) L 05/05/19 06:33 Plt Count 196 10^3/uL (150-450) 05/05/19 06:33 MPV 8.1 fL (7.4-10.4) 05/05/19 06:33 INR (Anticoag Therapy) 2.29 (0.82-1.09) H 05/05/19 06:33 Sodium 136 mmol/L (135-145) 05/04/19 05:54 Potassium 3.3 mmol/L (3.5-5.0) L 05/04/19 05:54 Chloride 104 mmol/L (101-111) 05/04/19 05:54 Carbon Dioxide 29 mmol/L (22-32) 05/04/19 05:54 Anion Gap 3 mmol/L (2-11) 05/04/19 05:54 BUN 8 mg/dL (6-24) 05/04/19 05:54 Creatinine 0.58 mg/dL (0.51-0.95) 05/04/19 05:54 Est GFR ( Amer) 125.9 (>60) 05/04/19 05:54 Est GFR (Non-Af Amer) 104.0 (>60) 05/04/19 05:54 BUN/Creatinine Ratio 13.8 (8-20) 05/04/19 05:54 Glucose 126 mg/dL (70-100) H 05/04/19 05:54 Calcium 7.9 mg/dL (8.6-10.3) L 05/04/19 05:54
[2019-05-05] MEDS: Al Hydrox/Mg Hydrox/Simet LIQ* 30 ML UDC PO PRN (18:05)
[2019-05-05] MEDS: Cetirizine* 10 MG TAB PO SCH (21:18)
[2019-05-05] MEDS: MEDROXYPR PO SCH (21:27)
[2019-05-05] MEDS: ESTROGENS PO SCH (21:27)
[2019-05-06] MEDS: traMADol TAB* 50 MG PO SCH ×3 (03:50→17:02)
[2019-05-06] MEDS: Cyclobenzaprine TAB* 10 MG PO PRN ×2 (03:50→12:41)
[2019-05-06 05:11] LABS: Hematocrit 26 % (35-47); Mean Platelet Volume 7.9 fL (7.4-10.4); Platelet Count 192 10^3/uL (150-450)
[2019-05-06 05:29] LABS: INR 2.4 (0.82-1.09)
[2019-05-06] MEDS: Ketorolac INJ* 30 MG/ML 1 ML VIAL IV SCH ×4 (07:37→17:18)
[2019-05-06] MEDS: Acetaminophen TAB* 325 MG PO SCH ×2 (07:38→15:06)
[2019-05-06] MEDS: Magnesium Hydroxide LIQ* 30 ML UDC PO SCH (09:31)
[2019-05-06] MEDS: Vitamin E CAP* 400 UNIT PO SCH (09:31)
[2019-05-06] MEDS: Docusate CAP* 100 MG PO SCH (09:32)
[2019-05-06] MEDS: Lactobacillus Acidophilus* 1 TAB PO SCH (09:32)
[2019-05-06] MEDS: Lisinopril TAB* 5 MG PO SCH (09:32)
[2019-05-06] MEDS: Sertraline* 50 MG TAB PO SCH (09:33)
[2019-05-06] MEDS: [UNRECOGNIZED DRUG - OTHER] PO SCH (09:33)
[2019-05-06] MEDS: Vitamin B Complex TAB PO SCH (09:34)
[2019-05-06] MEDS: VITAMIN A 8000 UNIT PO SCH (09:34)
[2019-05-06] MEDS: Vitamin THERAPEUTIC TAB PO SCH (09:34)
--- NOTE | 2019-05-06 11:32 | PN ---
Progress Note - Progress Note Date of Service: 05/06/19 SOAP: Subjective: []Pt seen at bedside. Her knee pain is well controlled. She did better with PT today though needed max assist on the stairs, she has 2 stairs to get into her home. Denies CP, SOB, dizziness, nausea or abdominal pain. Has not had a BM yet , is passing flatus and tolerate her breakfast. Objective: []Gen: Appears well , NAD RLE: Right knee dressing changed, incisions CDI, thigh soft, DF/PF intact, DP2+ , sensation intact to light touch distally. Calves supple and nontender without erythema, edema or palpable cords Assessment: []POD 3 sp RTK Plan: []WBAT PT Pain is better controlled today INR still therapeutic, will plan to start eliquis friday If has BM okay for DC home with homecare. Will discuss with son need for 24 hr care at home which yesterday he confirmed she would have available. Continue IS Vital Signs Temp 98.6 F 05/06/19 07:52 Pulse 93 05/06/19 07:52 Resp 18 05/06/19 09:32 BP 110/49 05/06/19 07:52 Pulse Ox 92 05/06/19 07:52 Intake & Output 05/05/19 05/06/19 05/06/19 18:59 06:59 18:59 Intake Total 240 800 360 Output Total 300 0 Balance -60 800 360 Intake: Oral 240 800 360 Output: Urine 300 0 Other: Estimated Void Medium # Voids 1 Laboratory Last Values Hgb 9.0 g/dL (12.0-16.0) L 05/06/19 04:52 Hct 26 % (35-47) L 05/06/19 04:52 Plt Count 192 10^3/uL (150-450) 05/06/19 04:52 MPV 7.9 fL (7.4-10.4) 05/06/19 04:52 INR (Anticoag Therapy) 2.40 (0.82-1.09) H 05/06/19 04:52 Sodium 136 mmol/L (135-145) 05/04/19 05:54 Potassium 4.3 mmol/L (3.5-5.0) 05/06/19 04:52 Chloride 104 mmol/L (101-111) 05/04/19 05:54 Carbon Dioxide 29 mmol/L (22-32) 05/04/19 05:54 Anion Gap 3 mmol/L (2-11) 05/04/19 05:54 BUN 8 mg/dL (6-24) 05/04/19 05:54 Creatinine 0.58 mg/dL (0.51-0.95) 05/04/19 05:54 Est GFR ( Amer) 125.9 (>60) 05/04/19 05:54 Est GFR (Non-Af Amer) 104.0 (>60) 05/04/19 05:54 BUN/Creatinine Ratio 13.8 (8-20) 05/04/19 05:54 Glucose 126 mg/dL (70-100) H 05/04/19 05:54 Calcium 7.9 mg/dL (8.6-10.3) L 05/04/19 05:54
[2019-05-06] MEDS: oxyCODONE TAB* 5 MG TAB PO PRN (14:58)
[2019-05-06 15:32] VITALS: BP 103/51
--- NOTE | 2019-05-06 15:38 | DS ---
Orthopedic Discharge Summary - Discharge Summary Date of Admission:05/03/19 Date of Discharge: 05/06/19 Date of Surgery: 05/03/19 Attending Orthopedic Provider: Dr Delgado Pre-operative Diagnosis: Right knee osteoarthritis Operative Procedure: right total knee arthroplasty Disposition of Patient: home with nursing services Condition of Patient: stable History: GALI MCNAMARA is a 68 year old F with years of increasingly severe right knee pain. Patient has failed conservative management and has elected to undergo a right total knee replacement Hospital Course: GALI was admitted to [facility] on 05/03/19. Patient underwent a right total knee replacement without complication followed by a brief recovery in PACU and transfer to the Short Stay Surgical Unit in stable condition. Our hospitalist service, physical therapy and occupational therapy also participated in this patients care. Post-op day 1: patient was alert and in no acute distress. Dressing was clean, dry and intact. Operative extremity dorsiflexion and plantarflexion intact, sensation intact to light touch distally, DP2+. Post-op day two: dressing was changed, incision was clean , dry and intact. POD 3 dressing changed, incision CDI. Pt has not had a bowel movement, she is tolerating food and is not nauseous. She is passing flatus. Abdmomen is soft and nontender, nondistended. Pending a bowel movement she can discharge to home. Patient was deemed to be medically and orthopedically stable for discharge. Physical therapy goals were met. Home Medications Medication Instructions Recorded Confirmed Type ALPRAZolam [Xanax] 0.25 mg PO TID PRN 04/20/19 05/03/19 History Acyclovir 200 mg PO SEE INSTRUCTIONS PRN 04/20/19 05/03/19 History Cyanocobalamin (Vitamin B-12) 1,000 mcg PO QAM 04/20/19 05/03/19 History [B-12] Estradiol VAGINAL TAB(NF) [Vagifem] 10 mcg VAGINAL WEEKLY 04/20/19 05/03/19 History Estrogens/Medroxypr 0.3(NF) 1 tab PO BEDTIME 04/20/19 05/03/19 History [Prempro 0.3/1.5 (NF)] Fluticasone NASAL SPRAY 50MCG* 2 spray BOTH NARES DAILY PRN 04/20/19 05/03/19 History [Flonase NASAL SPRAY 50MCG*] Glucosamine/D3/Boswellia Karly 1 tab PO WEEKLY 04/20/19 05/03/19 History [Glucosamine Complex] Ibuprofen 600 mg PO Q6H PRN 04/20/19 05/03/19 History Juice Plus Fiber 1 tab PO QAM 04/20/19 05/03/19 History L.acidoph,Paracasei, B.lactis 1 each PO QAM 04/20/19 05/03/19 History [Probiotic] Lisinopril 5 mg PO QAM 04/20/19 05/03/19 History Loratadine [Claritin] 10 mg PO BEDTIME 04/20/19 05/03/19 History Multivitamin [Multiple Vitamins] 1 tab PO QAM 04/20/19 05/03/19 History Nitrofurantoin Monohyd/M-Cryst 100 mg PO BID PRN 04/20/19 05/03/19 History [Macrobid 100 mg Capsule] Oxycodone HCl 5 mg PO TID PRN 04/20/19 05/03/19 History Sertraline HCl [Zoloft] 50 mg PO QAM 04/20/19 05/03/19 History Vitamin A 8,000 unit PO QAM 04/20/19 05/03/19 History Vitamin B Complex [Super B-50 1 each PO QAM 04/20/19 05/03/19 History Complex] Vitamin E Acetate [Vitamin E] 1,200 unit PO QAM 04/20/19 05/03/19 History hydroCHLOROthiazide 25 mg PO QAM 04/20/19 05/03/19 History [Hydrochlorothiazide] Discharge Instructions following Orthopedic Surgery: Activity: * Weight Bearing as tolerated * Continue physical therapy and occupational therapy exercises as shown * Home PT Wound care: * OK to shower on post-op day 3, no bathing, swimming, or submerging wound. * Use gentle soap, pat dry. Cover with gauze, FAREED wrap or tape. * Visiting home nurse to do wound checks. Call Orthopedic office for: * Increased drainage * Redness * Increased pain * Fever Go to ER with shortness of breath or chest pain. Diet: * Regular diet * Increase fluids and fiber to prevent constipation. * Continue to use stool softeners, call office if no bowel motion within 48 hours. Medications See Home Medication List in your packet for medications that you should take after discharge. DVT Prophylaxis: Eliquis Dosin.5 mg, 1 tab every 12 hours x 30 days post op. Start this medication on Friday05/09/19. Increases bleeding tendency Pain Control: oxycodone 5 mg 1 tab for moderate and 2 tabs for severe pain every 4 hours. Hold for sedation, wean off as soon as pain allows. Antibiotics are required prior to any dental work. FOLLOW UP: Follow up with Dr. Collado] Within 4 weeks, call for appointment Please call our office with any questions or concerns ([phone]) [facility]
[2019-05-06] MEDS: Al Hydrox/Mg Hydrox/Simet LIQ* 30 ML UDC PO PRN (17:14)
== END 2019-05-06 18:20 | disposition home or self-care (01) | DRG 470 ==
LOC: AA 07:00 → SSU 13:44
PROVIDERS: ADMIT Orthopaedic Surgery; ATTEND Orthopaedic Surgery
PROC: 0SRC0J9 Replacement of Right Knee Joint with Synthetic Substitute, Cemented, Open Approach (ICD-10-PCS; principal; 2019-05-03 09:45)
DX: M17.11 Unilateral primary osteoarthritis, right knee (principal); F32.9 Major depressive disorder, single episode, unspecified; I10 Essential (primary) hypertension; M23.261 Derangement of other lateral meniscus due to old tear or injury, right knee; I44.7 Left bundle-branch block, unspecified; R11.2 Nausea with vomiting, unspecified; F41.9 Anxiety disorder, unspecified; Z88.8 Allergy status to other drugs, medicaments and biological substances; Z80.9 Family history of malignant neoplasm, unspecified; Z83.3 Family history of diabetes mellitus; Z82.3 Family history of stroke; Z87.891 Personal history of nicotine dependence
CPT/HCPCS: 36415; 80048; 84132; 85014; 85018; 85049; 85610; 88305; 88311; A9270-GY; C1776; G8978-GP-CJ; G8979-GP-CI; J0690; J0780; J1644; J1885; J2250; J2270; J2405; J2704; J3010

== ENCOUNTER 2019-05-09 17:58 | Inpatient (IN) | payer MEDICARE ==
[2019-05-09] MEDS ORDERED: Morphine 4 MG/ML VIAL (1 ml) 4 MG/ML VIAL IV ONE (18:43)
[2019-05-09] MEDS ORDERED: NS 0.9% 1000 ML** 1,000 ML IV ONE (18:43)
[2019-05-09] MEDS ORDERED: Lidocaine 1% INJ* 10 MG/ML 30 ML SDV ONE (19:41)
[2019-05-09] MEDS ORDERED: Morphine INJ* 2 MG/ML 1 ML SYRINGE (TWO MG - NEW SYRINGE VERSION) ONE (19:51)
[2019-05-09] MEDS ORDERED: Morphine INJ* 2 MG/ML 1 ML SYRINGE (TWO MG - NEW SYRINGE VERSION) IV ONE (20:00)
[2019-05-09] MEDS ORDERED: Vancomycin(*) 1,500 MG in NS 0.9% 250 ML* 250 ML IVPB ONE (20:00)
[2019-05-09 20:48] LABS: ABS Eosinophils 0.1 10^3/ul (0-0.6); ABS Monocytes 0.9 10^3/ul (0-0.8); ABS Neutrophils 4.3 10^3/ul (1.5-7.7); Eosinophil % 2.1 %; Hematocrit 26 % (35-47); Hemoglobin 9.1 g/dL (12.0-16.0); Lymphocyte % 16.3 %; Mean Corpuscular HGB Conc 35 g/dL (31-36); Mean Corpuscular Hemoglobin 31 pg (27-31); Mean Corpuscular Volume 89 fL (80-97); Mean Platelet Volume 6.9 fL (7.4-10.4); Platelet Count 372 10^3/uL (150-450); Red Blood Count 2.94 10^6 /uL (3.70-4.87); Red Cell Distribution Width 13 % (10-15); White Blood Count 6.4 10^3/uL (3.5-10.8)
[2019-05-09 21:04] LABS: Albumin 3.5 g/dL (3.2-5.2); Albumin/Globulin Ratio 1.5 (1-3); Calcium 8.4 mg/dL (8.6-10.3); Globulin 2.3 g/dL (2-4); Potassium 3.9 mmol/L (3.5-5.0); Total Bilirubin 0.6 mg/dL (0.2-1.0); Total Protein 5.8 g/dL (6.4-8.9)
--- NOTE | 2019-05-09 21:04 | HP ---
HISTORY AND PHYSICAL: DATE OF ADMISSION: 05/09/19 [place] [facility] HISTORY OF PRESENT ILLNESS: Sonia is a 68-year-old woman who has had chronic right osteoarthritis of the knee. She had some injections; most recently , but with progressive pain and degenerative meniscus on MRI. She underwent a knee replacement last Friday, which was 05/03/19, at [facility] She was in the hospital until . She had some mild hypertension during her admission and some occasional bouts of hypotension. She was discharged on 05/06/19 and lives in [place] with her son and [id number]. She has had increasing pain now for the last 36 hours and today, she was noted to have increasing redness around the right knee. She went to a hospital in [facility], and they called me early afternoon to let me know that the knee was quite red and swollen. They ashly a lactate on her, which was 3.3, and she has been transferred here today with a diagnosis of acute postoperative infection right total knee. MEDICATIONS: Ms. Field is currently taking lisinopril 5 mg per day and hydrochlorothiazide 12.5 mg per day. She is on an estrogen supplement, which has been stopped perioperatively. She is on loratadine as needed. She has been taking oxycodone up to 10 mg at a time with periodic Tylenol as well. She feels the pain has not been handled by the oxycodone. ALLERGIES: She has an allergy to Novocain when it is mixed with epi. SOCIAL HISTORY: She has been sober for 35 years. She is a former smoker as well. REVIEW OF SYSTEMS: Negative for chest pain and shortness of breath. She has had some fevers. She had some diarrhea, which has resolved in the last 12 hours ; diarrhea for about 24 hours previously. No significant cramping. No foul- smelling urine, but she has been having frequency and urgency, particularly today with fluid resuscitations since being in the emergency room. No dizziness or lightheadedness. PHYSICAL EXAMINATION GENERAL: The patient is seen in the emergency room suite. She is alert and oriented. The only distress is pain in the right knee. She has her own teeth, good dentition. VITAL SIGNS: She is currently noted to be 99.5 temporal, pulse rate is 91; although when I examined her she was at 105, O2 sat is 98, respiratory rate is 20, blood pressure 172/72. NECK: Supple. LUNGS: Chest exam is clear to auscultation in all lung corona. I do not hear any wheezing or rales. HEART: Cardiac exam shows regular rate, but somewhat tachycardic. ABDOMEN: Flat, doughy, nontender. GENITOURINARY: Deferred. EXTREMITIES: Right lower extremity shows her to have funmi intact on the anterior right knee, approximately 20 cm incision. She has 2 sutures down along the tibial crest, which were markers for the navigation equipment. There is erythematous skin completely around the wound and some puffiness. She does not have any drainage from the knee. She is having significant pain with any attempted flexion of the knee. She holds it about -10 degrees of extension. Her foot is warm, sensate. She moves her toes well. She has intact dorsal pulse. NEUROLOGIC: Deferred. LABORATORY DATA: The labs we have available at this point in time, she had a white count of 7.5 earlier today, hemoglobin of 9.9. Lactic acid level was 3.3 , normal up to 1.9. She had multiple blood cultures sent from [facility]. IMPRESSION: The patient with acute postoperative knee infection, right total knee. She is also showing some signs of borderline sepsis at this point in time. We do not have the results of the blood cultures yet, but the increased lactic acid points towards this and the tachycardia and the fever. PLAN: She will be admitted for fluid resuscitation, IV antibiotics overnight, and irrigation and debridement tomorrow at the hospital. The surgeon is aware. [id number]/[facility] #: [id number]
[2019-05-09] MEDS ORDERED: oxyCODONE TAB* 5 MG TAB PO PRN (21:50)
[2019-05-09] MEDS ORDERED: Fluticasone NASAL SPRAY 50MCG* 16 gm SPRAY BTL BOTH NARES PRN (21:50)
[2019-05-09] MEDS ORDERED: HYDROmorphone INJ1* 1 MG/ML SYRINGE IV SLOW PU PRN (21:50)
[2019-05-09] MEDS ORDERED: Piperacillin/Tazobac ADVAN(*) 3.375 GM in NS 0.9% 100 ML* 100 ML IVPB ONE (22:13)
[2019-05-09] MEDS ORDERED: Zosyn per Pharmacy* NOTE FOLLOW UP SCH (23:00)
[2019-05-09] MEDS ORDERED: Vancomycin per Pharmacy* NOTE FOLLOW UP SCH (23:00)
[2019-05-09] MEDS: NS 0.9% 1000 ML** 1,000 ML IV SCH (23:07)
[2019-05-09] MEDS: Acetaminophen TAB* 325 MG PO SCH (23:11)
[2019-05-09] MEDS: ALPRAZolam TAB* 0.25 MG PO PRN (23:11)
--- NOTE | 2019-05-09 23:26 | ED ---
Skin Complaint - HPI Summary HPI Summary: 68 year old female presents to the ED by EMS with a chief complaint of pain in a surgical wound in her right knee starting several days ago but severely worsening this morning. Patient rates the pain 10/10 in severity. She had knee replacement surgery last week, and at first there were no complications but after several days pain gradually increased. This morning there was severe redness and swelling. The patient reports chills and nausea. She denies vomiting. She has numbness in her foot since surgery, but retains movement in foot. Hx of DM and HTN. Congenital LBBB. Medications reviewed. Allergies noted. - History of Current Complaint Chief Complaint: EDExtremityLower Time Seen by Provider: 05/09/19 18:09 Stated Complaint: POSS INFECTION PER EMS Hx Obtained From: Patient Onset/Duration: Started Days Ago, Still Present, Worse Since - This morning. Skin Exposure Onset/Duration: Days Ago Timing: Constant, Lasting Days Onset Severity: Mild Current Severity: Severe Pain Intensity: 10 Pain Scale Used: 0-10 Numeric Skin Location: Leg - Knee Character: Painful Alleviating Symptom(s): Nothing Associated Signs & Symptoms: Nausea, Chills - Additional Pertinent History Primary Care Physician: [id number] - Allergy/Home Medications Allergies/Adverse Reactions: Allergies Allergy/AdvReac Type Severity Reaction Status Date / Time alcohol Allergy Unknown Verified 05/09/19 18:42 Reaction Details epinephrine Allergy Shakes Verified 05/09/19 18:42 procaine [From Novocain] Allergy Unknown Verified 05/09/19 18:42 Reaction Details PMH/Surg Hx/FS Hx/Imm Hx Endocrine/Hematology History: Denies: Hx Bone Marrow Disease, Hx Sickle Cell Disease, Hx Anemia Cardiovascular History: Reports: Hx Hypertension, Other Cardiovascular Problems/ Disorders - LBBS Musculoskeletal History: Reports: Hx Arthritis - GENERALIZED Sensory History: Reports: Hx Contacts or Glasses - CONTACTS WILL WEAR GLASSES Denies: Hx Hearing Aid Opthamlomology History: Reports: Hx Contacts or Glasses - CONTACTS WILL WEAR GLASSES Psychiatric History: Reports: Hx Anxiety - Surgical History Surgery Procedure, Year, and Place: 1967 T&A. 2004 BREAST REDUCTION Hx Anesthesia Reactions: Yes - SLOW TO RESPOND FROM ANESTHESIA Infectious Disease History: No Infectious Disease History: Denies: Hx Clostridium Difficile, Hx Hepatitis, Hx Human Immunodeficiency Virus (HIV), Hx of Known/Suspected MRSA, Hx Shingles, Hx Tuberculosis, History Other Infectious Disease, Traveled Outside the [place] in Last 30 Days - Family History Known Family History: Positive: Diabetes - Social History Alcohol Use: None Alcohol Amount: RECOVERED ALCHOLIC Substance Use Type: Reports: None Smoking Status (MU): Former Smoker Have You Smoked in the Last Year: No Review of Systems Positive: Chills Positive: Nausea. Negative: Vomiting Positive: Edema Positive: Other - surgical laceration on right knee, erythema Positive: Numbness All Other Systems Reviewed And Are Negative: Yes Physical Exam - Summary Physical Exam Summary: Constitutional: Well-developed, Well-nourished, Alert. (-) Distressed Skin: Warm, Dry HENT: Normocephalic; Atraumatic Eyes: Conjunctiva normal Neck: Musculoskeletal ROM normal neck. (-) JVD, (-) Stridor, (-) Tracheal deviation Cardio: Rhythm regular, rate normal, Heart sounds normal; Intact distal pulses; Radial pulses are 2+ and symmetric. (-) Murmur. DP, PT both palpable 2+. Pulmonary/Chest wall: Effort normal. (-) Respiratory distress, (-) Wheezes, (-) Rales Abd: Soft, (-) tenderness, (-) Distension, (-) Guarding, (-) Rebound Musculoskeletal: (-) Edema, right knee replacement funmi intact. Edemic and erythematous. Tracking to right groin no pain with passive movement of big toe. Lymph: (-) Cervical adenopathy Neuro: Alert, Oriented x3 Psych: Mood and affect Normal Triage Information Reviewed: Yes Vital Signs On Initial Exam: Initial Vitals Temp Pulse Resp BP Pulse Ox 99.4 F 91 20 172/72 98 05/09/19 18:00 05/09/19 18:00 05/09/19 18:00 05/09/19 18:00 05/09/19 18:00 Vital Signs Reviewed: Yes Procedures - Sedation Patient Received Moderate/Deep Sedation with Procedure: No Diagnostics - Vital Signs Vital Signs Temp Pulse Resp BP Pulse Ox 05/09/19 20:10 93 166/81 76 05/09/19 20:01 22 05/09/19 20:00 98 100 05/09/19 19:39 140/99 05/09/19 19:10 99.5 F 05/09/19 19:09 99 181/81 98 05/09/19 19:08 20 05/09/19 19:00 96 98 05/09/19 18:39 100 173/99 100 05/09/19 18:09 109 175/86 87 05/09/19 18:05 107 95 05/09/19 18:00 99.4 F 91 20 172/72 98 - Laboratory Result Diagrams: 05/10/19 08:54 05/10/19 08:54 Lab Statement: Any lab studies that have been ordered have been reviewed, and results considered in the medical decision making process. Course/Dx - Course Course Of Treatment: Patient is here with an infected knee following surgery. Patient had labs performed at the outside hospital showed elevated lactate and a normal WBC. Patient was given 1 L fluids in the IV vancomycin here. Orthopedic surgery was counseled and they recommended admission to the hospital - Diagnoses Provider Diagnoses: Post surgical complication, Infection of knee - Physician Notifications Discussed Care Of Patient With: Guzman Fonseca Time Discussed With Above Provider: 18:51 Instructed by Provider To: Other - Talked to Dr. Fonseca, who thinks that we should give vancomycin, and fluid resuscitation. He will call Medicine. Discharge ED - Sign-Out/Discharge Documenting (check all that apply): Patient Departure - Admit All imaging exams completed and their final reports reviewed: No Studies - Discharge Plan Condition: Stable Disposition: ADMITTED TO [facility] - Billing Disposition and Condition Condition: STABLE Disposition: Admitted to [facility] - Attestation Statements Document Initiated by Lisaibe: Yes Documenting Scribe: Norman Hodge Provider For Whom Goldy is Documenting (Include Credential): Caleb Tesfaye MD. Scribe Attestation: Norman Angelo scribed for Caleb Tesfaye MD. on 05/10/19 at 1910. Scribe Documentation Reviewed: Yes Provider Attestation: The documentation as recorded by the scribeNorman accurately reflects the service I personally performed and the decisions made by me, Caleb Tesfaye MD. Status of Scribe Document: Viewed
--- NOTE | 2019-05-09 23:32 | CONS ---
CC: Dr. Nasir Bishop at [place]. CONSULTATION REPORT: DATE OF CONSULT: 05/09/19 PRIMARY CARE PHYSICIAN: Dr. Nasir Bishop, [facility]. PAIN SPECIALIST: Pedro Pablo Hall MD REQUESTING PHYSICIAN: Dr. Guzman Fonseca. REASON FOR CONSULTATION: Management of high blood pressure. HISTORY OF PRESENT ILLNESS: This is a 68-year-old female with past medical history of hypertension; seasonal affective disorder; osteoarthritis, status post right total knee replacement with Dr. Delgado on Friday05/03/19, was discharged home, but since discharge she has been having severe pain in the right knee and her pain was never under control. Last night, the daughter noticed that the patient was having some redness around the site, but did not think much of it but the streak of redness increased as of this morning and covered the entire knee and there was more swelling of the knee as well, so they took her to the nearest hospital, [facility], who recommended her to be transferred to [facility] given that the surgery was done here and the patient was also noted to have elevated lactic acid at [facility] at 3.3. She denies any fever but she has been having chills all day and increased weakness. She has had decreased appetite and has not had much intake for the last 24 hours. According to the orthopedic, Dr. Fonseca, the patient's knee appears to be infected and red and requires some surgical correction. The patient is being kept n.p.o. and Medicine consulted for overall medical management of her high blood pressure. PAST MEDICAL HISTORY: As mentioned high blood pressure, depression, and seasonal affective disorder, and anxiety, osteoarthritis. She has also had left bundle- branch block syndrome, but recently had a cardiac workup with echocardiogram and was told that everything was normal and rest of her cardiac workup would be completed after her knee replacement was done. She also has seasonal allergy especially in fall and spring and has had postmenopausal syndrome requiring estrogens. PAST SURGICAL HISTORY: She has had the right total knee replacement on 05/03/19 , tonsillectomy in 1967, and in 2007 she has also had breast reduction surgery. HOME MEDICATIONS: The patient is on: 1. Oxycodone 10 mg every 4 hours p.r.n. pain. 2. Hydrochlorothiazide 25 mg every morning. 3. Vitamin E of 1200 units every morning. 4. Super B-complex 1 tablet every morning. 5. Vitamin A 8000 units every morning. 6. Zoloft 50 mg every morning. 7. Multivitamin 1 tablet oral every morning. 8. Claritin 10 mg p.o. at bedtime. 9. Lisinopril 5 mg every morning. 10. Probiotic 1 tablet every morning. 11. Juice Plus Fiber 1 tablet every morning. 12. Ibuprofen 600 mg q.6 hours p.r.n. for mild pain. 13. Glucosamine 1 tablet weekly. 14. Fluticasone nasal spray both nares daily p.r.n. for congestion. 15. Estrogen 1 tablet p.o. at bedtime. 16. Estradiol vaginal tab 10 mcg vaginally weekly. 17. Vitamin B12 of 1000 mcg every morning. 18. Eliquis 2.5 mg every 12 hours. 19. Acyclovir 200 mg p.o. p.r.n. 20. Xanax 0.25 mg p.o. b.i.d. p.r.n. ALLERGIES: The patient is documented to have allergies to ALCOHOL, EPINEPHRINE , and PROCAINE from [employer]. FAMILY HISTORY: Mother had diabetes and a high blood pressure and heart disease. Father had cancer. SOCIAL HISTORY: She has had previous history of smoking. No alcohol or drug use. Her surrogate decision maker is her son, Pratik Olvera and she is otherwise a full code. REVIEW OF SYSTEMS: A 14-point review of systems did not reveal any information other than what is stated in the HPI. PHYSICAL EXAM: Vital Signs: In the ER, maximum temperature was recorded at 99.5, BP was noted to be 158/70, heart rate 95, respiration rate 20, saturating 100% on room air. In general, the patient was noted to be in severe pain even after receiving 4 mg of IV morphine. Did not have any acute respiratory distress. Head and Neck Examination: Atraumatic and normocephalic. Bilateral pupils are reactive. Oral mucosa was moist. Neck: Supple. No jugular venous distention. Heart Examination: S1 and S2. Regular rate and rhythm. Lungs: Clear to auscultation bilaterally. No wheezing, rhonchi, or rales. Abdomen: Soft, nontender, and nondistended. Extremities: The patient had severe swelling of the right knee which was warm. The swelling extended all the way from mid thigh to the foot and the tenderness extended all the way to the ankle as well. There was definitely some erythema and warmth in that knee. DIAGNOSTIC STUDIES/LAB DATA: Labs at the [facility] was only significant for her anemia with a hemoglobin of 9.3 and hematocrit of 29.9 and elevated lactic acid at 3.3. Venous lower extremity Doppler performed at [place] did not reveal any DVT of the right lower extremity. BMP was suggestive of low normal calcium at 8.8 and low sodium at 132, and chloride at 94. Rest of the creatinine and bicarb were within normal limits. She also received a gram of Rocephin at [facility]. Labs at [facility] again showed CBC suggestive of anemia with hemoglobin of 9.9. Comprehensive metabolic panel was unremarkable and lactic acid was back down to normal at 0.8 and sodium and chloride were all within normal limits at this point. Calcium was still on the low side at 8.4. When corrected for the minimally decreased albumin, this was within normal limits. IMPRESSION: This is a 68-year-old female here with past medical history of hypertension, osteoarthritis, seasonal affective disorder, anxiety, seasonal allergies, here due to inflammation of her right knee after total knee arthroplasty. ASSESSMENT: 1. Right knee swelling and erythema post arthroplasty. Rule out infection. The patient already given a dose of Rocephin at [facility] and given a vancomycin. I will continue the vancomycin dosing per pharmacy and the patient is to get irrigation and debridement tomorrow and is being kept n.p.o. for that. I will start the patient on IV fluids. We will also broaden the coverage by adding Zosyn to her regimen and pain medications as necessary. We will hold the Eliquis in light of her debridement tomorrow and consider starting DVT prophylaxis after irrigation and drainage. 2. Anemia. Follow up anemia work-up. 3. History of hypertension. Restart BP medications. 4. History of depression and anxiety. Restart home medications. 5. Seasonal allergies. Restart home medications. 6. DVT prophylaxis: We will hold any anticoagulants at this point for possible surgical debridement in the morning and consider starting the patient on either Lovenox or back on Eliquis. 7. Code status: The patient is full code with the son, Pratik Olvera, being the health care proxy. [id number]/[facility] #: [id number] [facility] HOSPITALAbhishek
[2019-05-10] MEDS: HYDROmorphone INJ1* 1 MG/ML SYRINGE IV SLOW PU PRN ×7 (00:21→21:28)
[2019-05-10] MEDS ORDERED: Piperacillin/Tazobac ADVAN(*) 3.375 GM in NS 0.9% 100 ML* 100 ML IVPB ONE (00:30)
[2019-05-10] MEDS: oxyCODONE TAB* 5 MG TAB PO PRN ×5 (01:49→21:57)
[2019-05-10] MEDS ORDERED: ZOSYN 3.375 GM Q8H per EXTENDED INFUSION IVPB SCH ×2 (04:00)
[2019-05-10] MEDS: Vancomycin(*) 750 MG in NS 0.9% 250 ML* 250 ML IVPB SCH ×3 (05:24→23:19)
[2019-05-10] MEDS: Acetaminophen TAB* 325 MG PO SCH ×3 (06:05→23:43)
--- NOTE | 2019-05-10 07:43 | PN ---
Subjective Date of Service: 05/10/19 Interval History: HD#1 68 y/o F with h/o HTN, seasonal affective disorder and recent right total knee replacement(05/03/2019) presented with pain and redness around her right knee. Suspicion of Acute postoperative right knee infection. No acute overnight events Vitals stable Patient complains of right knee pain;8/10. unable to move right leg. complains of dyspepsia and discomfort Objective Active Medications: Acetaminophen (Tylenol Tab*) 975 mg PO Q8HR [facility] Last Admin: 05/10/19 06:05 Dose: 975 mg Alprazolam (Xanax Tab*) 0.25 mg PO TID PRN PRN Reason: ANXIETY Last Admin: 05/09/19 23:11 Dose: 0.25 mg Cetirizine HCl (Zyrtec*) 10 mg PO BEDTIME [facility] Cyanocobalamin (Vitamin B12 Tab*) 1,000 mcg PO QAM [facility] Estrogens Conj/Medroxyprogest Acet (Prempro 0.3/1.5 (Nf)) 1 tab PO BEDTIME [facility] Fluticasone Propionate (Flonase Nasal Isabella 50mcg*) 2 spray BOTH NARES DAILY PRN PRN Reason: CONGESTION Hydrochlorothiazide (Hydrodiuril Tab*) 25 mg PO QAM [facility] Hydromorphone HCl (Dilaudid Inj1s*) 1 mg IV SLOW PU Q2H PRN PRN Reason: PAIN - SEVERE Last Admin: 05/10/19 07:06 Dose: 1 mg Sodium Chloride (Ns 0.9% 1000 Ml) 1,000 mls @ 125 mls/hr IV PER RATE [facility] Last Admin: 05/09/19 23:07 Dose: 125 mls/hr Vancomycin HCl 750 mg/ Sodium (Chloride) 250 mls @ 166.667 mls/hr IVPB Q8H [facility] Last Admin: 05/10/19 05:24 Dose: 166.667 mls/hr Piperacillin Sod/Tazobactam (Sod 3.375 gm/ Sodium Chloride) 100 mls @ 200 mls/ hr IVPB Q6H [facility] Lisinopril (Prinivil Tab*) 5 mg PO QAM [facility] Multivitamins/Minerals (Theragran/Minerals Tab*) 1 tab PO QAM CRUZ [Glucosamine Complex (Tablet]) 1 tab PO TuTh@0900 CRUZ [Vitamin A] 8,000 (Unit) 8,000 unit PO QAM [facility] Oxycodone HCl (Roxycodone Tab*) 10 mg PO Q4H PRN PRN Reason: Pain - Breakthrough Last Admin: 05/10/19 01:49 Dose: 10 mg Pharmacy Consult (Vancomycin Per Pharmacy*) 1 note FOLLOW UP .VANC PER PHARMACY [facility]; Protocol Pharmacy Consult (Zosyn Per Pharmacy*) 1 note FOLLOW UP .ZOSYN PER PHARMACY [facility] Pharmacy Profile Note (Vancomycin Trough Check) 1 note FOLLOW UP 1200 ONE Stop: 05/11/19 12:01 Sertraline [facility] ([facility]*) [facility] B Complex/Vitamin E (B Complex-50*) 1 tab PO QAM [facility] Vitamin E (Vitamin E Cap*) 1,200 unit PO QAM [facility] Vital Signs - 8 hr 05/09/19 05/10/19 05/10/19 23:47 00:21 01:49 Temperature Pulse Rate Respiratory 19 18 17 Rate Blood Pressure (mmHg) O2 Sat by Pulse Oximetry 05/10/19 05/10/19 05/10/19 01:54 03:10 03:32 Temperature 98.2 F Pulse Rate 82 Respiratory 17 18 Rate Blood Pressure 127/59 (mmHg) O2 Sat by Pulse 100 98 Oximetry 05/10/19 05/10/19 05/10/19 03:57 05:15 06:11 Temperature Pulse Rate Respiratory 19 17 17 Rate Blood Pressure (mmHg) O2 Sat by Pulse Oximetry 05/10/19 05/10/19 05/10/19 06:12 07:06 07:19 Temperature Pulse Rate Respiratory 17 20 20 Rate Blood Pressure (mmHg) O2 Sat by Pulse Oximetry Oxygen Devices in Use Now: None Exam: Patirnt is lying on a bed with no acute distress. HEENT: Normocephalic and atraumatic Lungs: CLear with no added sounds. Heart: S1/S2 heard with no murmur ABdomen: Soft, nondistended and nontender. NOrmal bowel sound heard Extremities: Right KNee- Redness and swelling with opertive wound with funmi with no active discharge. Tenderness+; Decrease ROM; Distal pulse intact. Neuro: Alert, oriented and conscious Result Diagrams: 05/10/19 08:54 05/10/19 08:54 Assess/Plan/Problems-Billing Assessment: 68 y/o F with h/o HTN and Total right knee replacement(on 05/03/2019) presented with Pain, redness and swelling of right knee. Suspected acute postoperative right knee infection. - Patient Problems (1) Infection of right knee Current Visit: Yes Status: Acute Code(s): M00.9 - PYOGENIC ARTHRITIS, UNSPECIFIED SNOMED Code(s): 307654668 Comment: Has pain and redness. Extremely tender to touch. Early prosthetic joint infection. should cover staph aureus , gram -ve bacilli and anaerobe Pain controlled with oxycodone and dilaudid On IV vancomycin and zosyn(started on 05/10/2019); best tx option is to do wash out of joint. Now broad coverage; narrow a/c to culture sensitivity Ortho consulting Plan is to do I and D today. (2) HTN (hypertension) Current Visit: No Status: Acute Code(s): I10 - ESSENTIAL (PRIMARY) HYPERTENSION SNOMED Code(s): 17370877 Comment: high on presentation BP controlled now On lisinopril and HCTZ (3) Dyspepsia Current Visit: Yes Status: Acute Code(s): R10.13 - EPIGASTRIC PAIN SNOMED Code(s): 014403047 Comment: Complaining of abdominal discomfort Started on TUMS protonix once (4) Depression Current Visit: No Status: Acute Code(s): F32.9 - MAJOR DEPRESSIVE DISORDER, SINGLE EPISODE, UNSPECIFIED SNOMED Code(s): 61154813 Comment: Continue Alprazolam and Sertraline at home doses (5) Post-menopausal Current Visit: Yes Status: Acute Comment: ON hormone replacement therapy. (6) DVT prophylaxis Current Visit: No Status: Acute Code(s): Z29.9 - ENCOUNTER FOR PROPHYLACTIC MEASURES, UNSPECIFIED SNOMED Code(s): 227839062 Comment: Was on eliquis before; on hold On SCD possible I&D today (7) Full code status Current Visit: No Status: Acute Code(s): Z78.9 - OTHER SPECIFIED HEALTH STATUS SNOMED Code(s): 235107953 Status and Disposition: INpatient; Ortho following Attending: Quyen Hernandez Attestation Documenting Resident: Tia Zambrano Supervising Physician: Quyen Hernandez Attending/Supervising Physician Comment: Agree with resident note Attending Addendum 68F PMH recent R knee (05/03), mood disorder, pain, HTN, post menopause on HRT, who presented with R knee redness and swelling, admitted to ortho service with medicine consulting #R knee swelling: Undergoing liner exchange and washout -Continue broad coverage and narrow based on operative culture -Pain control per ortho #HTN: fair control on home meds, we will follow closely #Mood disorder: Sertrlaine/alprazolam at home doses #menopausal: on HRT per home meds #DVT PPX: was on apxiaban, given Vit K? pre operatively, can resume apixaban #Code Full We will follow closely patients HTN. Thank you for consulting us Attestation: This service has been performed in part by a resident under the direction of a teaching physician.I, Quyen Hernandez, performed the service, or was physically present during the critical, or keene portions of the service, furnished by the resident. I participated in the management of the patient.
[2019-05-10] MEDS: ALPRAZolam TAB* 0.25 MG PO PRN (08:03)
[2019-05-10] MEDS: Sertraline* 50 MG TAB PO SCH (08:04)
[2019-05-10] MEDS: Cyanocobalamin TAB* 500 MCG PO SCH (08:06)
[2019-05-10] MEDS: Vitamin E CAP* 400 UNIT PO SCH (08:07)
[2019-05-10] MEDS: Vitamin B Complex TAB PO SCH (08:07)
[2019-05-10] MEDS: Hydrochlorothiazide TAB* 25 MG PO SCH (08:07)
[2019-05-10] MEDS: Lisinopril TAB* 5 MG PO SCH (08:07)
[2019-05-10] MEDS: Multivitamins/Minerals TAB PO SCH (08:07)
[2019-05-10] MEDS: VITAMIN A 8000 UNIT PO SCH (08:07)
[2019-05-10] MEDS: ZOSYN 3.375 GM IVPB SCH ×4 (08:49→16:03)
[2019-05-10] MEDS: Calcium Carbonate CHEW TAB* 500 MG (TUMS) PO PRN ×3 (08:49→16:53)
[2019-05-10] MEDS: NS 0.9% 1000 ML** 1,000 ML IV SCH (08:52)
[2019-05-10 09:19] LABS: ABS Eosinophils 0.2 10^3/ul (0-0.6); ABS Lymphocytes 1.5 10^3/ul (1.0-4.8); ABS Monocytes 0.9 10^3/ul (0-0.8); ABS Neutrophils 3.2 10^3/ul (1.5-7.7); Eosinophil % 4.1 %; Hematocrit 28 % (35-47); Hemoglobin 9.6 g/dL (12.0-16.0); Mean Corpuscular HGB Conc 35 g/dL (31-36); Mean Corpuscular Hemoglobin 31 pg (27-31); Mean Corpuscular Volume 90 fL (80-97); Mean Platelet Volume 6.9 fL (7.4-10.4); Nucleated Red Blood Cells % 0.1; Platelet Count 416 10^3/uL (150-450); Red Cell Distribution Width 13 % (10-15); White Blood Count 5.8 10^3/uL (3.5-10.8)
[2019-05-10 09:33] LABS: Anion Gap 4 mmol/L (2-11); BUN/Creatinine Ratio 12.1 (8-20); Blood Urea Nitrogen 7 mg/dL (6-24); CO2 Carbon Dioxide 27 mmol/L (22-32); Calcium 8.5 mg/dL (8.6-10.3); Chloride 105 mmol/L (101-111); EGFR African American 125.9 (>60); Glucose 92 mg/dL (70-100); Potassium 3.9 mmol/L (3.5-5.0); Sodium 136 mmol/L (135-145)
[2019-05-10 09:46] LABS: % Iron Saturation 13 % (15-55); Iron 27 ug/dL (50-212); Total Iron Binding Capacity 203 mcg/dL (250-450); Transferrin 145 mg/dL (203-362)
[2019-05-10] MEDS ORDERED: Pantoprazole TAB * 40 MG TAB PO ONE (10:01)
[2019-05-10 10:08] LABS: Folate > 20.00 ng/mL (>3.99)
[2019-05-10 10:57] LABS: INR 1.43 (0.82-1.09)
[2019-05-10] MEDS ORDERED: Phytonadione IV (Adult)* 10 MG/ML 1 ML AMP IV ONE (11:00)
[2019-05-10] MEDS ORDERED: Phytonadione IV (Adult)* 5 MG in NS 0.9% 50 ML* 50 ML IV ONE (12:00)
--- NOTE | 2019-05-10 14:11 | PN ---
Progress Note - Progress Note Date of Service: 05/10/19 SOAP: Subjective: 68 yo female, underwent a primary TKA 7 days ago on 05/03. Pain control was an issue during her stay, even during surgery, as she had a spinal which fpc through surgery was found not to be working. Initially she was recommended for a subacute stay, but by she was doing better and did go home. She had been afebrile through her stay and the wound was good with no erythema and no drainage. Pain control was still an issue after she went home and Friday when the knee was unwrapped by the visiting nurse service, she reports it was just a little red, but something the nurse was not concerned about and told her to watch it. Friday night her pain continued to increase and the whole leg started to swell. Friday morning she was in even more pain. The wound also stared to look more red and angry. She was brought to the ED by her son and evaluated. With how the leg looked, it was felt there was at least a cellulitis and the knee was tapped and antibiotics started. This morning she still reports pain about the knee. Gram stain did show gram positive cocci, so I discussed with her a washout of the knee is the recommended next step with exchanging the plastic. Objective: VSS- afebrile. She is uncomfortable and reports some GI distress. Right leg- red, swollen and tender about the incision. No drainage. Not ranged or fully palpated, as I still have other cases to do. Assessment: Infection right knee Plan: I ordered protonix for her GI discomfort, as she already had Tums and is on the maximal dose. She is added on for a polyethylene exchange and washout of the right knee.
[2019-05-10] MEDS ORDERED: Povidone Iodine 5% OPTH* 30 ML BTL ONE ×2 (14:32→19:16)
[2019-05-10] MEDS ORDERED: Buffered Lidocaine 1% SYRIN* 1 ML/SYRINGE INTRADERM ONE (17:53)
[2019-05-10] MEDS: Lactated Ringers 1000 ML Bag* 1,000 ML IV SCH ×2 (18:42→23:19)
[2019-05-10] MEDS ORDERED: fentaNYL* 50 MCG/ML 2 ML VIAL (100 MCG VIAL) ONE ×5 (19:12→21:56)
[2019-05-10] MEDS ORDERED: Midazolam* 1 MG/ML 2 ML VIAL (2 MG) ONE ×2 (19:12→22:05)
[2019-05-10] MEDS ORDERED: Bupivacaine 0.25% EPI 200,000* 30 ML SDV ONE (19:16)
[2019-05-10] MEDS ORDERED: Famotidine IV* 10 MG/ML 2 ML (20 mg) ONE (19:20)
[2019-05-10] MEDS ORDERED: Succinylcholine* 20 MG/ML 10 ML VIAL ONE (19:41)
[2019-05-10] MEDS ORDERED: Lidocaine 2% PF * 5 ML VIAL ONE (19:41)
[2019-05-10] MEDS ORDERED: Dexamethasone IV* 4 MG/ML 1 ML (4 MG) ONE (19:41)
[2019-05-10] MEDS ORDERED: Ondansetron INJ* 2 MG/ML VIAL ONE (19:41)
[2019-05-10] MEDS ORDERED: Propofol* 10 MG/ML 20 ML BTL ONE ×2 (19:41→20:58)
[2019-05-10] MEDS ORDERED: Cisatracurium* 2 MG/ML MDV 5 ML ONE (19:43)
[2019-05-10] MEDS ORDERED: Vancomycin(*) 1,000 MG VIAL ONE (20:18)
[2019-05-10] MEDS ORDERED: Labetalol IV* 5 MG/ML 20 ML VIAL ONE (20:21)
[2019-05-10] MEDS ORDERED: Acetaminophen IV 1GM/100ML * 100 ML ONE (20:53)
[2019-05-10] MEDS ORDERED: DiMENhydriNATE IV* 50 MG/ML VIAL IV PUSH PRN (21:14)
[2019-05-10] MEDS ORDERED: Naloxone* 0.4 MG/ML 1 ML VIAL IV PRN (21:14)
[2019-05-10] MEDS ORDERED: diPHENhydraMINE IV* 50 MG/ML 1 ml VIAL (BENADRYL) IV PRN (21:14)
[2019-05-10] MEDS ORDERED: Ondansetron INJ* 2 MG/ML VIAL IV PRN (21:14)
[2019-05-10] MEDS: fentaNYL* 50 MCG/ML 2 ML VIAL (100 MCG VIAL) IV PRN ×5 (21:20→22:11)
[2019-05-10] MEDS ORDERED: diPHENhydraMINE IV* 50 MG/ML 1 ml VIAL (BENADRYL) ONE (21:22)
[2019-05-10] MEDS ORDERED: HYDROmorphone INJ1* 1 MG/ML SYRINGE ONE (21:27)
[2019-05-10] MEDS ORDERED: DiMENhydriNATE IV* 50 MG/ML VIAL ONE (21:56)
[2019-05-10] MEDS ORDERED: oxyCODONE TAB* 5 MG TAB ONE (21:56)
[2019-05-10] MEDS: Midazolam* 1 MG/ML 2 ML VIAL (2 MG) IV SLOW PU SCH (22:06)
[2019-05-10] MEDS ORDERED: LR @ 125 MLS/HR IV SCH (23:00)
[2019-05-10] MEDS: ESTROGENS PO SCH (23:38)
[2019-05-10] MEDS: MEDROXYPR PO SCH (23:38)
[2019-05-10] MEDS: Morphine INJ* 2 MG/ML 1 ML SYRINGE (TWO MG - NEW SYRINGE VERSION) IV PRN (23:43)
[2019-05-10] MEDS: Cetirizine* 10 MG TAB PO SCH (23:43)
[2019-05-11] MEDS: ZOSYN 3.375 GM IVPB SCH ×6 (00:03→09:35)
[2019-05-11] MEDS: ALPRAZolam TAB* 0.25 MG PO PRN ×2 (02:02→09:34)
[2019-05-11] MEDS: oxyCODONE TAB* 5 MG TAB PO PRN ×5 (03:25→21:30)
[2019-05-11] MEDS: Midazolam* 1 MG/ML 2 ML VIAL (2 MG) IV SLOW PU SCH (03:45)
[2019-05-11] MEDS: Vancomycin(*) 750 MG in NS 0.9% 250 ML* 250 ML IVPB SCH ×4 (04:16→21:27)
[2019-05-11] MEDS: traMADol TAB* 50 MG PO PRN ×3 (05:35→20:14)
[2019-05-11] MEDS: Morphine INJ* 2 MG/ML 1 ML SYRINGE (TWO MG - NEW SYRINGE VERSION) IV PRN (05:36)
--- NOTE | 2019-05-11 06:32 | PN ---
Subjective Date of Service: 05/11/19 Interval History: HD#2 68 y/o F with h/o HTN, seasonal affective disorder and recent right total knee replacement(05/03/2019) presented with pain and redness around her right knee. Suspicion of Acute postoperative right knee infection. s/p washout(0n 05/10/2019) No acute overnight events Vitals stable Complains of right knee pain-10; No fever reports vesicular rash on right lip; No burning and tingling Tolerating food well Objective Active Medications: Acetaminophen (Tylenol Tab*) 975 mg PO Q8HR [facility] Last Admin: 05/10/19 23:43 Dose: 975 mg Alprazolam (Xanax Tab*) 0.25 mg PO TID PRN PRN Reason: ANXIETY Last Admin: 05/11/19 02:02 Dose: 0.25 mg Calcium Carbonate (Tums*) 500 mg PO Q4H PRN PRN Reason: INDIGESTION Last Admin: 05/10/19 16:53 Dose: 500 mg Cetirizine HCl (Zyrtec*) 10 mg PO BEDTIME [facility] Last Admin: 05/10/19 23:43 Dose: 10 mg Cyanocobalamin (Vitamin B12 Tab*) 1,000 mcg PO QAM [facility] Last Admin: 05/10/19 08:06 Dose: Not Given Enoxaparin Sodium (Lovenox(*)) 40 mg SUBCUT DAILY@1400 [facility] Estrogens Conj/Medroxyprogest Acet (Prempro 0.3/1.5 (Nf)) 1 tab PO BEDTIME [facility] Last Admin: 05/10/19 23:38 Dose: Not Given Fluticasone Propionate (Flonase Nasal [place] 50mcg*) 2 spray BOTH NARES DAILY PRN PRN Reason: CONGESTION Hydrochlorothiazide (Hydrodiuril Tab*) 25 mg PO QAM [facility] Last Admin: 05/10/19 08:07 Dose: Not Given Hydromorphone HCl (Dilaudid Inj1s*) 1 mg IV SLOW PU Q2H PRN PRN Reason: PAIN - SEVERE Last Admin: 05/10/19 21:28 Dose: 1 mg Vancomycin HCl 750 mg/ Sodium (Chloride) 250 mls @ 166.667 mls/hr IVPB Q8H [facility] Last Admin: 05/11/19 04:16 Dose: 166.667 mls/hr Piperacillin Sod/Tazobactam (Sod 3.375 gm/ Sodium Chloride) 100 mls @ 200 mls/ hr IVPB Q6H [facility] Last Admin: 05/11/19 03:25 Dose: 200 mls/hr Lactated Ringer's (Lactated Ringers 1000 Ml Bag*) 1,000 mls @ 125 mls/hr IV PER RATE [facility] Last Admin: 05/10/19 23:20 Dose: 125 mls/hr Lisinopril (Prinivil Tab*) 5 mg PO [facility] Last Admin: 05/10/19 08:07 Dose: Not Given Morphine Sulfate (Morphine Inj (Syringe))*) 1 mg IV Q4H PRN PRN Reason: BREAKTHROUGH PAIN Last Admin: 05/11/19 05:36 Dose: 1 mg Multivitamins/Minerals (Theragran/Minerals Tab*) [facility] Admin: 05/10/19 08:07 Dose: Not Given [Glucosamine Complex (Tablet]) 1 tab PO TuTh@0900 [facility] [Vitamin A] 8,000 (Unit) 8,000 unit PO [facility] Last Admin: 05/10/19 08:07 Dose: Not Given Oxycodone HCl (Roxycodone Tab*) 10 mg PO Q4H PRN PRN Reason: PAIN - SEVERE Last Admin: 05/11/19 03:25 Dose: 10 mg Pharmacy Consult (Vancomycin Per Pharmacy*) 1 note FOLLOW UP .VANC PER PHARMACY [facility]; Protocol Pharmacy Consult (Zosyn Per Pharmacy*) 1 note FOLLOW UP .ZOSYN PER PHARMACY [facility] Pharmacy Profile Note (Vancomycin Trough Check) 1 note FOLLOW UP 1200 ONE Stop: 05/11/19 12:01 Sertraline HCl (Zoloft*) 50 mg PO [facility] Last Admin: 05/10/19 08:04 Dose: 50 mg Tramadol HCl (Ultram*) 50 mg PO Q6H PRN PRN Reason: PAIN - MILD Last Admin: 05/11/19 05:35 Dose: 50 mg Vitamin B Complex/Vitamin E (B Complex-50*) [facility] Last Admin: 05/10/19 08:07 Dose: Not Given Vitamin E (Vitamin E Cap*) 1,200 [facility] Last Admin: 05/10/19 08:07 Dose: Not Given Vital Signs - 8 hr 05/10/19 05/10/19 05/10/19 22:39 23:24 23:40 Temperature 98.2 F 98.7 F Pulse Rate 84 79 Respiratory 20 20 20 Rate Blood Pressure 161/68 169/68 (mmHg) O2 Sat by Pulse 100 99 Oximetry 05/10/19 05/11/19 05/11/19 23:43 00:00 00:04 Temperature Pulse Rate Respiratory 20 20 20 Rate Blood Pressure (mmHg) O2 Sat by Pulse 100 Oximetry 05/11/19 05/11/19 05/11/19 00:05 00:49 01:00 Temperature 99.3 F Pulse Rate 85 Respiratory 20 18 18 Rate Blood Pressure 167/66 (mmHg) O2 Sat by Pulse 99 Oximetry 05/11/19 05/11/19 05/11/19 01:23 02:02 02:32 Temperature 98.1 F Pulse Rate 77 Respiratory 20 20 Rate Blood Pressure 150/65 (mmHg) O2 Sat by Pulse 99 99 Oximetry 05/11/19 05/11/19 05/11/19 03:25 04:30 05:30 Temperature 97.8 F Pulse Rate 76 Respiratory 18 18 20 Rate Blood Pressure 144/63 (mmHg) O2 Sat by Pulse 100 Oximetry 05/11/19 05/11/19 05/11/19 05:35 05:36 06:02 Temperature Pulse Rate Respiratory 18 18 20 Rate Blood Pressure (mmHg) O2 Sat by Pulse Oximetry Oxygen Devices in Use Now: Nasal Cannula Exam: Patient is lying on a bed with no acute distress. HEENT: Normocephalic and atraumatic; 2-3 vesicles seen on right corner of lip Lungs: CLear with no added sounds. Heart: S1/S2 heard with no murmur ABdomen: Soft, nondistended and nontender. NOrmal bowel sound heard Extremities: Large dressing wound on right knee with wound vac Neuro: Alert, oriented and conscious Result Diagrams: 05/11/19 06:43 05/11/19 06:53 Assess/Plan/Problems-Billing Assessment: 68 y/o F with h/o HTN and Total right knee replacement(on 05/03/2019) presented with Pain, redness and swelling of right knee. Suspected acute postoperative right knee infection.s/p washout - Patient Problems (1) Infection of right knee Current Visit: Yes Status: Acute Code(s): M00.9 - PYOGENIC ARTHRITIS, UNSPECIFIED SNOMED Code(s): 762904411 Comment: Wash out done on 05/10/2019; revealed blood clot POD 1 Pain controlled with Morphine, dilaudid and oxycodone On vancomycin and zosyn(day 2) Ortho following ID consulting (2) HTN (hypertension) Current Visit: No Status: Acute Code(s): I10 - ESSENTIAL (PRIMARY) HYPERTENSION SNOMED Code(s): 69014480 Comment: BP controlled now On lisinopril and HCTZ (3) Herpes labialis without complication Current Visit: Yes Status: Acute Code(s): B00.1 - HERPESVIRAL VESICULAR DERMATITIS SNOMED Code(s): 2258621 Comment: Cluster of vesicles on right corner of lip; No burning and tingling On acylcovir (4) Dyspepsia Current Visit: Yes Status: Acute Code(s): R10.13 - EPIGASTRIC PAIN SNOMED Code(s): 937413542 Comment: Improved after eating. No complaint at present (5) Depression Current Visit: No Status: Acute Code(s): F32.9 - MAJOR DEPRESSIVE DISORDER, SINGLE EPISODE, UNSPECIFIED SNOMED Code(s): 36286328 Comment: Continue Alprazolam and Sertraline at home doses (6) Post-menopausal Current Visit: Yes Status: Acute Comment: ON hormone replacement therapy. (7) DVT prophylaxis Current Visit: No Status: Acute Code(s): Z29.9 - ENCOUNTER FOR PROPHYLACTIC MEASURES, UNSPECIFIED SNOMED Code(s): 400492937 Comment: Was on eliquis before; on hold, restart per ortho (8) Full code status Current Visit: No Status: Acute Code(s): Z78.9 - OTHER SPECIFIED HEALTH STATUS SNOMED Code(s): 179730864 Status and Disposition: INpatient Ortho; Medicine following Attending: Quyen Hernandez Attestation Documenting Resident: Tia Zambrano Supervising Physician: Quyen Hernandez Attending/Supervising Physician Comment: Agree with resident note, attending addendum: 68 F HTN, seasonal affective disorder and recent right total knee replacement() presented with pain and redness around her right knee. Suspicion of Acute postoperative right knee infection. s/p washout(0n 05/10/2019), ID recommending senior care abx for joint infection -May need PICC line, appreciate ID recs -Home meds continued -We will follow Attestation: This service has been performed in part by a resident under the direction of a teaching physician.I, Quyen Hernandez, performed the service, or was physically present during the critical, or keene portions of the service, furnished by the resident. I participated in the management of the patient.
[2019-05-11] MEDS: GLUCOSAMINE COMPLEX PO SCH (07:30)
[2019-05-11] MEDS: VITAMIN A 8000 UNIT PO SCH (07:30)
[2019-05-11] MEDS: Acetaminophen TAB* 325 MG PO SCH ×3 (07:34→22:58)
--- NOTE | 2019-05-11 07:38 | OP ---
DATE OF OPERATION: 05/10/19 - ROOM #[id number] DATE OF : 54 ATTENDING SURGEON: Navid Delgado MD FRAME CHANGER: Sena Miguel RPA ANESTHESIA: General endotracheal. PRE-OP DIAGNOSIS: Infected right total knee arthroplasty. POST-OP DIAGNOSIS: Infected right total knee arthroplasty. OPERATIVE PROCEDURE: Washout of right total knee arthroplasty with polyethylene exchange. ESTIMATED BLOOD LOSS: Minimal. COMPLICATIONS: None. SUMMARY: Mrs. Field is a 68-year-old female who, 7 days ago last Friday, underwent a right total knee arthroplasty. Pain control had been an issue postoperatively, but she had been afebrile throughout her hospital stay and was discharged home . Pain control was still an issue at home and the Visiting Nurse Service had come on Friday and when they took the dressings down, there was a little bit of redness around the funmi but they were not impressed enough to notify the office. She was told to keep watch of that. That night she had a significant increase in her pain and had even more difficulty with pain control. The next morning, she did come to the emergency room here at [facility] and an aspiration of the knee was done and that came back with gram-positive cocci in the aspirate. I discussed with her that a washout should work well, so we can get ahead of the infection. I warned her that if we cannot get far enough ahead of an infection that sometimes we do have to take the parts out, but hopefully with getting to this early and then making sure she improve significantly that we should get on the right course with it. She did not really want to hear any of the other risks of surgery such as scar formation, stiffness, DVT, or pulmonary embolism. She had wished to proceed. DESCRIPTION OF PROCEDURE: The patient was brought to the OR and general endotracheal anesthesia was established. Right leg was prepped and then draped. Staple remover was used to take out the funmi and sutures about the tibial array incision were also removed. Using a knife, the Vicryl sutures were split underneath the skin, and I was able to reopen the wound quite easily. There was a bit of blood clot in the full-thickness flaps that have been raised and using pulse lavage, this was washed out. A 12 L of pulse lavage was used and this was with 10 cc of Betadine in every liter of saline. Similarly, Vicryl sutures that were used to close the parapatellar arthrotomy were also sharply cut and searched for so that they all could be removed. Thick dark blood clot was present inside and there was no pus at all. Pulse lavage was used to remove the blood clot as was a rongeur and knee was continuously searched for additional small blood clots. Polyethylene was then easily levered out and posteriorly rongeur was used to nibble out the blood clots so that I could get behind the femoral condyle and just into the posterior pouch. Pulse lavage was also used in those areas. After the first 3 L, polyethylene had been levered out. A total of 11.5 L were used and then posterior behind the each condyle was injected with 10 cc of 0.25% Marcaine with epinephrine. An additional 10 cc was injected into the each gutter and then 10 cc was spread in the suprapatellar pouch, and an additional 10 cc in the superior half of her incision. New polyethylene was then snapped into place. She had the same wonderful motion and stability. Knee was then sprinkled with 1 g of powdered vancomycin. Parapatellar arthrotomy was then closed using 0 Prolene sutures. Subcutaneous tissues were approximated using 2- 0 Prolene and the remainder of the pulse was used in the subcutaneous tissues. Skin was closed using funmi. Sterile dressing was applied in the OR. The patient was then extubated in the OR and was stable on transfer to the recovery room. [id number]/[facility] #: [id number] ESTRADA
[2019-05-11 07:44] LABS: Hematocrit 26 % (35-47); Hemoglobin 9.3 g/dL (12.0-16.0); Mean Corpuscular HGB Conc 36 g/dL (31-36); Mean Corpuscular Hemoglobin 31 pg (27-31); Mean Corpuscular Volume 89 fL (80-97); Mean Platelet Volume 6.9 fL (7.4-10.4); Platelet Count 447 10^3/uL (150-450); Red Blood Count 2.95 10^6 /uL (3.70-4.87); Red Cell Distribution Width 13 % (10-15); White Blood Count 6.4 10^3/uL (3.5-10.8)
[2019-05-11 08:08] LABS: BUN/Creatinine Ratio 13.5 (8-20); C Reactive Protein 128.84 mg/L (<8.01); Calcium 8.5 mg/dL (8.6-10.3); EGFR African American 142.8 (>60)
[2019-05-11] MEDS ORDERED: Polyethylene Glycol 3350* 17 GM PACKET PO PRN (09:19)
[2019-05-11] MEDS ORDERED: Bisacodyl SUPP* 10 MG SUPP PR PRN (09:19)
[2019-05-11] MEDS ORDERED: Senna TAB 8.6 mg* TAB PO PRN (09:19)
[2019-05-11] MEDS ORDERED: Magnesium Hydroxide LIQ* 30 ML UDC PO PRN (09:19)
[2019-05-11] MEDS: HYDROmorphone INJ1* 1 MG/ML SYRINGE IV SLOW PU PRN (09:31)
[2019-05-11] MEDS: Cyanocobalamin TAB* 500 MCG PO SCH (09:33)
[2019-05-11] MEDS: Hydrochlorothiazide TAB* 25 MG PO SCH (09:33)
[2019-05-11] MEDS: Vitamin B Complex TAB PO SCH (09:33)
[2019-05-11] MEDS: Multivitamins/Minerals TAB PO SCH (09:33)
[2019-05-11] MEDS: Lisinopril TAB* 5 MG PO SCH (09:34)
[2019-05-11] MEDS: Vitamin E CAP* 400 UNIT PO SCH (09:34)
[2019-05-11] MEDS: Sertraline* 50 MG TAB PO SCH (09:34)
[2019-05-11 10:47] LABS: Erythrocyte Sed Rate 76 mm/Hr (0-29)
[2019-05-11] MEDS ORDERED: Vancomycin Trough Check NOTE FOLLOW UP ONE (12:00)
[2019-05-11] MEDS: Acyclovir* 400 MG TAB PO SCH ×2 (13:57→22:58)
[2019-05-11] MEDS: Enoxaparin(*) 40 MG/0.4 ML SYR SUBCUT SCH (13:58)
[2019-05-11] MEDS: Calcium Carbonate CHEW TAB* 500 MG (TUMS) PO PRN (14:25)
--- NOTE | 2019-05-11 15:50 | CONS ---
CONSULTATION REPORT: DATE OF CONSULT: 05/11/19 PRIMARY CARE PROVIDER: Dr. Nasir Bishop. PROVIDER REQUESTING CONSULTATION: NINI Szymanski CONSULTING SERVICE: Infectious Disease. PROVIDER: Osiel Marcial NP ATTENDING PROVIDER: Dr. Kee Santoyo.* (DICTATED BY OSIEL MARCIAL NP) REASON FOR CONSULTATION: Right knee infection post arthroplasty. IMPRESSION: Septic prosthetic right knee. The patient is status post right total knee arthroplasty on May 03. She was taken to the operating room status post washout and polyethylene exchange. Cultures with no growth on day 2. PCR was negative for methicillin-resistant Staphylococcus aureus. She has no leukocytosis. CRP is elevated. Afebrile. Blood cultures drawn at [facility] with no growth and blood cultures drawn at [facility] with no growth to date also. There are being run at [facility]. RECOMMENDATION/PLAN: Recommend discontinuing Zosyn and continuing vancomycin. She will likely need a 4-week course of IV antibiotics in the setting of a prosthetic knee infection. We will continue to follow along. Further recommendations will be based on the patient's clinical course and final culture data. HISTORY OF PRESENT ILLNESS: Ms. Field is a 68-year-old female with past medical history significant for hypertension, depression, seasonal affective disorder, anxiety, left bundle-branch block, and osteoarthritis, who underwent a right total knee arthroplasty with Dr. Delgado on 05/03/19. She states that she was having a lot of pain postoperatively and was discharged on postop day 4 after staying extra days for constipation. She states her pain was never controlled while in the hospital. When she got home, she had diarrhea for 2 days. During her time home, the pain became worse and worse. She had been in contact with Orthopedics, who had given recommendations for adjustment in pain medication. She was seen by visiting nurse service on 05/08/19 and was noted to have red swollen knee. On Friday, when her son came to visit her, the redness was up into her thigh and down into her ankle, so they presented to the emergency room at [facility]. While at [facility], the patient had a lactic acid of 3.3, had no fevers or chills at that time. No nausea, vomiting, urinary symptoms. She is having decreased appetite. The case was discussed with Dr. Fonseca with the Orthopedic Surgery on-call here at [facility] and the patient was transferred to [facility] for possible surgery. While at [facility], she has been afebrile. She had blood cultures with no growth on day 1. She had a right lower extremity wound culture with Gram-positive cocci that is Staph aureus and MRSA negative. She was taken to the operating room yesterday on 05/10/19 and underwent washout of the right total knee arthroplasty with polyethylene exchange. She was placed on vancomycin and Zosyn. During her hospital stay, she reports intermittent fevers and chills. She continues to have significant right knee pain and reports sweats overnight. Denies nausea, vomiting, diarrhea, constipation, urinary symptoms. She has not had any recent travel. PAST MEDICAL HISTORY: 1. Hypertension. 2. Depression. 3. Seasonal affective disorder. 4. Anxiety. 5. Osteoarthritis. 6. Left bundle-branch block. PAST SURGICAL HISTORY: 1. Status post right total knee arthroplasty on 05/03/19. 2. Status post tonsillectomy. 3. Status post breast reduction. MEDICATIONS: Home medications: 1. Oxycodone 10 mg by mouth every 4 hours as needed for pain. 2. Hydrochlorothiazide 25 mg by mouth daily. 3. Vitamin E 1200 units by mouth daily. 4. Vitamin D one tablet by mouth daily. 5. Vitamin A 8000 units by mouth daily. 6. Zoloft 50 mg by mouth daily. 7. Multivitamin 1 tablet by mouth daily. 8. Claritin 10 mg by mouth at bedtime. 9. Lisinopril 5 mg by mouth every morning. 10. Probiotic 1 tablet by mouth daily. 11. Juice Plus Fiber 1 tablet by mouth daily. 12. Ibuprofen 600 mg by mouth every 6 hours as needed for pain. 13. Glucosamine complex 1 tablet by mouth weekly. 14. Fluconazole nasal spray 50 mcg 2 sprays to both nares daily as needed for congestion. 15. Prempro 1 tablet by mouth daily. 16. Vagifem 10 mcg vaginally weekly. 17. Vitamin B12 1000 mcg by mouth daily. 18. Eliquis 2.5 mg by mouth every 12 hours. 19. Acyclovir 200 mg by mouth as needed. 20. Acetaminophen 975 mg by mouth every 8 hours. 21. Xanax 0.25 mg by mouth 3 times daily as needed for anxiety. Hospital medications: 1. Acetaminophen 975 mg by mouth every 8 hours. 2. Acyclovir 400 mg by mouth every 8 hours. 3. Xanax 0.25 mg by mouth 3 times daily as needed for anxiety. 4. Dulcolax suppository 10 mg per rectum daily as needed for constipation. 5. Tums 500 mg by mouth every 4 as needed for indigestion. 6. Zyrtec 10 mg by mouth daily at bedtime. 7. Vitamin B12 1000 mcg by mouth daily. 8. Colace 100 mg by mouth twice daily. 9. Lovenox 40 mg subcutaneous daily. 10. Prempro 0.3/1.5 one tablet by mouth daily. 11. Fluconazole nasal spray 50 mcg 2 sprays to both nares daily as needed for nasal congestion. 12. Hydrochlorothiazide 25 mg by mouth every morning. 13. Hydromorphone 1 mg IV every 2 hours as needed for pain. 14. Lactated Ringer's 125 mL intravenously an hour. 15. Lactulose 30 mL by mouth daily as needed for constipation. 16. Lisinopril 5 mg by mouth daily. 17. Milk of magnesia 30 mL by mouth twice daily until BMs and twice daily as needed for constipation. 18. Morphine sulfate 1 mg IV every 4 hours as needed for pain. 19. Multivitamin 1 tablet by mouth daily. 20. Oxycodone 10 mg by mouth every 4 hours as needed for pain. 21. MiraLAX 17 g by mouth daily as needed for constipation. 22. Senokot 1 tablet by mouth daily at bedtime as needed for constipation. 23. Zoloft 50 mg by mouth daily. 24. Ultram 50 mg by mouth every 6 hours as needed for pain. 25. Vancomycin 750 mg IV every 8 hours. 26. B-complex 1 tablet by mouth daily. 27. Vitamin E 1200 units by mouth daily. 28. Glucosamine 1 tablet by mouth on Friday and . 29. Vitamin A 8000 units by mouth every morning. ALLERGIES: ALCOHOL, EPINEPHRINE, and PROCAINE. FAMILY HISTORY: Denies family history of recurrent resistant infections. Mother with a history of heart disease and diabetes. Father with a history of cancer. SOCIAL HISTORY: She is a former alcoholic, has been sober for 35 years. She is also a former smoker. Denies recreational drug use. REVIEW OF SYSTEMS: I performed a 10-point review of systems. All the pertinent positives and negatives are mentioned in the history of present illness. The remaining review of systems are negative. PHYSICAL EXAMINATION: Vital Signs: Temperature 98.3, heart rate 83, respiratory rate 16, O2 sat 98% on room air, blood pressure 127/55. General Appearance: She is alert, appears to be in no acute distress, sitting up in a chair. Head: Normocephalic, atraumatic. EENT: Extraocular movements are intact. No subconjunctival hemorrhage. Moist mucous membranes. Neck: Supple. No lymphadenopathy. Neurological: Alert and oriented. Cranial nerves II through XII are grossly intact. Cardiovascular: Regular rate and rhythm. S1, S2 present. No murmurs, rubs, or gallops heard. Respiratory: Lungs are clear to auscultation bilaterally. No accessory muscle use. Abdomen : Bowel sounds present. Abdomen is soft, nontender, and nondistended. Extremities: There is mild right lower extremity edema. DP and PT pulses are 2 + and symmetric. Musculoskeletal: No clubbing or cyanosis noted. She exhibits good strength in all extremities. She has limited range of motion in her right knee due to pain, also has pain with palpation of the right knee and ankle and calf and mayfield. She has no tenderness to palpation of the neck, back, or spine. Psychological: Calm and cooperative. Skin: No rashes or abnormalities seen. DIAGNOSTIC STUDIES/LABORATORY DATA: Sodium 136, potassium 4.0, chloride 104, CO2 24, BUN 7, creatinine 0.52, glucose 140. White blood cell count 6.4, hemoglobin 9.3, hematocrit 26, platelet count 447, and CRP was 128.84. Please see impression and recommendations outlined above, recommendations have been discussed with NINI Szymanski. Thank you for asking us to see Ms. Field in consultation. Reviewed by SKIP PCIHARDO 05/13/19 1855 [id number]/[facility] #: [id number] ESTRADA
--- NOTE | 2019-05-11 17:22 | PN ---
Progress Note - Progress Note Date of Service: 05/11/19 SOAP: Subjective: []Pt seen at bedside. She feels well without feeling of fever, chills, CP, SOB, dizziness or nausea. her right knee remains painful though tolerable. Last hospital stay she had difficulty with constipation, she has no abd pain or nausea and is tolerating PO well. Objective: []Gen: NAD, nontoxic appearing RLE: Right knee dressing CDI, DF/PF intact, DP2+, sensation intact to light touch distally Calves supple and nontender without erythema, edema or palpable cords Assessment: []POD 1 sp Right knee I&D, poly exchange Plan: []WBAT PT/OT jessica richardson, ID consulting for ABX mgmt lovenox 40 mg sq qd for 30 days post op for dvt prophy Vital Signs Temp 98.3 F 05/11/19 11:16 Pulse 90 05/11/19 15:46 Resp 16 05/11/19 16:16 BP 127/58 05/11/19 15:46 Pulse Ox 100 05/11/19 16:00 Intake & Output 05/10/19 05/11/19 05/11/19 18:59 06:59 18:59 Intake Total 1353 2480 1058 Output Total 2300 2400 0 Balance -119 49 8334 Intake: IV Fluids 893 2000 668 LR 2000 668 NS (0.9%) 893 IVPB 460 390 ABX - VANCOMYCIN 287 280 ABX - ZOSYN 110 110 Vit K 63 Oral 0 480 Output: Urine 2300 2400 0 Laboratory Last Values WBC 6.4 10^3/uL (3.5-10.8) 05/11/19 06:43 RBC 2.95 10^6 /uL (3.70-4.87) L 05/11/19 06:43 Hgb 9.3 g/dL (12.0-16.0) L 05/11/19 06:43 Hct 26 % (35-47) L 05/11/19 06:43 MCV 89 fL (80-97) 05/11/19 06:43 MCH 31 pg (27-31) 05/11/19 06:43 MCHC 36 g/dL (31-36) 05/11/19 06:43 RDW 13 % (10-15) 05/11/19 06:43 Plt Count 447 10^3/uL (150-450) 05/11/19 06:43 MPV 6.9 fL (7.4-10.4) L 05/11/19 06:43 Neut % (Auto) 54.7 % 05/10/19 08:54 Lymph % (Auto) 26.0 % 05/10/19 08:54 [place] % (Auto) 14.7 % 05/10/19 08:54 Eos % (Auto) 4.1 % 05/10/19 08:54 Baso % (Auto) 0.5 % 05/10/19 08:54 Absolute Neuts (auto) 3.2 10^3/ul (1.5-7.7) 05/10/19 08:54 Absolute Lymphs (auto) 1.5 10^3/ul (1.0-4.8) 05/10/19 08:54 Absolute Monos (auto) 0.9 10^3/ul (0-0.8) H 05/10/19 08:54 Absolute Eos (auto) 0.2 10^3/ul (0-0.6) 05/10/19 08:54 Absolute Basos (auto) 0.0 10^3/ul (0-0.2) 05/10/19 08:54 Absolute Nucleated RBC 0.0 10^3/ul 05/10/19 08:54 Nucleated RBC % 0.1 05/10/19 08:54 ESR 76 mm/Hr (0-29) H 05/11/19 06:43 INR (Anticoag Therapy) 1.43 (0.82-1.09) H 05/10/19 10:39 Sodium 136 mmol/L (135-145) 05/11/19 06:53 Potassium 4.0 mmol/L (3.5-5.0) 05/11/19 06:53 Chloride 104 mmol/L (101-111) 05/11/19 06:53 Carbon Dioxide 24 mmol/L (22-32) 05/11/19 06:53 Anion Gap 8 mmol/L (2-11) 05/11/19 06:53 BUN 7 mg/dL (6-24) 05/11/19 06:53 Creatinine 0.52 mg/dL (0.51-0.95) 05/11/19 06:53 Est GFR ( Amer) 142.8 (>60) 05/11/19 06:53 Est GFR (Non-Af Amer) 118.0 (>60) 05/11/19 06:53 BUN/Creatinine Ratio 13.5 (8-20) 05/11/19 06:53 Glucose 140 mg/dL (70-100) H 05/11/19 06:53 Lactic Acid 0.8 mmol/L (0.5-2.0) 05/09/19 20:40 Calcium 8.5 mg/dL (8.6-10.3) L 05/11/19 06:53 Iron 27 ug/dL (50-212) L 05/10/19 08:54 TIBC 203 mcg/dL (250-450) L 05/10/19 08:54 % Saturation 13 % (15-55) L 05/10/19 08:54 Unsat Iron Binding < 188 ug/dL 05/10/19 08:54 Transferrin 145 mg/dL (203-362) L 05/10/19 08:54 Total Bilirubin 0.60 mg/dL (0.2-1.0) 05/09/19 20:40 AST 29 U/L (13-39) 05/09/19 20:40 ALT 18 U/L (7-52) 05/09/19 20:40 Alkaline Phosphatase 70 U/L (34-104) 05/09/19 20:40 C-Reactive Protein 128.84 mg/L (<8.01) H 05/11/19 06:53 Total Protein 5.8 g/dL (6.4-8.9) L 05/09/19 20:40 Albumin 3.5 g/dL (3.2-5.2) 05/09/19 20:40 Globulin 2.3 g/dL (2-4) 05/09/19 20:40 Albumin/Globulin Ratio 1.5 (1-3) 05/09/19 20:40 Vitamin B12 1008 pg/mL (180-914) H 05/10/19 08:54 Folate > 20.00 ng/mL (>3.99) 05/10/19 08:54 Vancomycin Trough 13.0 mcg/mL 05/11/19 13:04 Blood Type A Negative 05/10/19 08:54 Antibody Screen Negative 05/10/19 08:54
[2019-05-11] MEDS: ESTROGENS PO SCH (19:46)
[2019-05-11] MEDS: MEDROXYPR PO SCH (19:46)
[2019-05-11] MEDS: Docusate CAP* 100 MG PO SCH (19:58)
[2019-05-11] MEDS: Magnesium Hydroxide LIQ* 30 ML UDC PO SCH (19:58)
[2019-05-11] MEDS: Cetirizine* 10 MG TAB PO SCH (19:58)
[2019-05-12] MEDS: oxyCODONE TAB* 5 MG TAB PO PRN ×4 (03:33→20:01)
[2019-05-12] MEDS: Vancomycin(*) 750 MG in NS 0.9% 250 ML* 250 ML IVPB SCH ×3 (04:45→20:01)
[2019-05-12] MEDS: Acyclovir* 400 MG TAB PO SCH ×3 (05:22→21:49)
[2019-05-12] MEDS: Acetaminophen TAB* 325 MG PO SCH ×3 (05:22→21:49)
[2019-05-12] MEDS: traMADol TAB* 50 MG PO PRN ×3 (06:20→17:56)
--- NOTE | 2019-05-12 06:32 | PN ---
Subjective Date of Service: 05/12/19 Interval History: HD#3 68 y/o F with h/o HTN, seasonal affective disorder and recent right total knee replacement(05/03/2019) presented with pain and redness around her right knee. Found to have Acute postoperative right knee infection. s/p washout(0n 05/10/2019 ). On vancomycin(day10/29) No acute overnight events Vitals stable complains of knee pain; 02/10 had meltdown this morning because of all this things going on wants to go home Going to bathroom Objective Active Medications: Acetaminophen (Tylenol Tab*) 975 mg PO Q8HR [facility] Last Admin: 05/12/19 05:22 Dose: 975 mg Acyclovir (Zovirax Tab*) 400 mg PO Q8HR [facility] Last Admin: 05/12/19 05:22 Dose: 400 mg Alprazolam (Xanax Tab*) 0.25 mg PO TID PRN PRN Reason: ANXIETY Last Admin: 05/11/19 09:34 Dose: 0.25 mg Bisacodyl (Dulcolax Supp*) 10 mg [place] DAILY PRN PRN Reason: CONSTIPATION Calcium Carbonate (Tums*) 500 mg PO Q4H PRN PRN Reason: INDIGESTION Last Admin: 05/11/19 14:25 Dose: 500 mg Cetirizine HCl (Zyrtec*) 10 mg PO BEDTIME [facility] Last Admin: 05/11/19 19:58 Dose: 10 mg Cyanocobalamin (Vitamin B12 Tab*) 1,000 mcg PO QAM [facility] Last Admin: 05/11/19 09:33 Dose: 1,000 mcg Diazepam (Valium Tab(*)) 5 mg PO ONCE ONE Stop: 05/12/19 07:01 Docusate Sodium (Colace Cap*) 100 mg PO BID [facility] Last Admin: 05/11/19 19:58 Dose: 100 mg Enoxaparin Sodium (Lovenox(*)) 40 mg SUBCUT DAILY@1400 [facility] Last Admin: 05/11/19 13:58 Dose: 40 mg Estrogens Conj/Medroxyprogest Acet (Prempro 0.3/1.5 (Nf)) 1 tab PO BEDTIME [facility] Last Admin: 05/11/19 19:46 Dose: Not Given Fluticasone Propionate (Flonase Nasal [place] 50mcg*) 2 spray BOTH NARES DAILY PRN PRN Reason: CONGESTION Hydrochlorothiazide ([facility]uril Tab*) [facility] Last Admin: 05/11/19 09:33 Dose: 25 mg Hydromorphone HCl (Dilaudid Inj1s*) 1 mg IV SLOW PU Q2H PRN PRN Reason: PAIN - SEVERE Last Admin: 05/11/19 09:31 Dose: 1 mg Vancomycin HCl 750 mg/ Sodium (Chloride) 250 mls @ 166.667 mls/hr IVPB Q8H [facility] Last Admin: 05/12/19 04:45 Dose: 166.667 mls/hr Lactated Ringer's (Lactated Ringers 1000 Ml Bag*) 1,000 mls @ 125 mls/hr IV PER RATE [facility] Last Admin: 05/10/19 23:20 Dose: 125 mls/hr Lactulose (Lactulose*) 30 ml PO DAILY PRN PRN Reason: CONSTIPATION Lisinopril (Prinivil Tab*) 5 mg PO [facility] Last Admin: 05/11/19 09:34 Dose: 5 mg Magnesium Hydroxide (Milk Of Magnesia Liq*) 30 ml PO BID [facility] Last Admin: 05/11/19 19:58 Dose: 30 ml Magnesium Hydroxide (Milk Of Magnesia Liq*) 30 ml PO BID PRN PRN Reason: CONSTIPATION Morphine Sulfate (Morphine Inj (Syringe))*) 1 mg IV Q4H PRN PRN Reason: BREAKTHROUGH PAIN Last Admin: 05/11/19 05:36 Dose: 1 mg Multivitamins/Minerals (Theragran/Minerals Tab*) [facility] [place] Last Admin: 05/11/19 09:33 Dose: 1 tab [Glucosamine Complex (Tablet]) 1 tab PO TuTh@0900 [facility] Last Admin: 05/11/19 07:30 Dose: Not Given [Vitamin A] 8,000 (Unit) 8,000 unit PO [facility] Last Admin: 05/11/19 07:30 Dose: Not Given Oxycodone HCl (Roxycodone Tab*) 10 mg PO Q4H PRN PRN Reason: PAIN - SEVERE Last Admin: 05/12/19 03:33 Dose: 10 mg Pharmacy Consult (Vancomycin Per Pharmacy*) 1 note FOLLOW UP .VANC PER PHARMACY [facility]; Protocol Pharmacy Profile Note (Vancomycin Trough Check) 1 note FOLLOW UP 1130 ONE Stop: 05/13/19 11:31 Polyethylene Glycol/Electrolytes (Miralax*) 17 gm PO DAILY PRN PRN Reason: CONSTIPATION Senna (Senokot 8.6 Mg Tab*) 1 tab PO BEDTIME PRN PRN Reason: CONSTIPATION Sertraline HCl (Zoloft*) 50 mg PO [facility] Last Admin: 05/11/19 09:34 Dose: 50 mg Tramadol HCl (Ultram*) 50 mg PO Q6H PRN PRN Reason: PAIN - MILD Last Admin: 05/12/19 06:20 Dose: 50 mg Vitamin B Complex/Vitamin E (B Complex-50*) 1 tab PO [facility] Last Admin: 05/11/19 09:33 Dose: 1 tab Vitamin E (Vitamin E Cap*) 1,200 unit PO [facility] Last Admin: 05/11/19 09:34 Dose: 1,200 unit Vital Signs - 8 hr 05/11/19 05/11/19 05/12/19 22:51 23:30 00:00 Temperature 98.4 F Pulse Rate 83 Respiratory 18 17 Rate Blood Pressure 126/47 (mmHg) O2 Sat by Pulse 95 95 Oximetry 05/12/19 05/12/19 05/12/19 00:06 03:33 04:46 Temperature 98.0 F Pulse Rate 82 Respiratory 16 18 16 Rate Blood Pressure 133/60 (mmHg) O2 Sat by Pulse 94 Oximetry 05/12/19 05/12/19 05:44 06:20 Temperature Pulse Rate Respiratory 18 18 Rate Blood Pressure (mmHg) O2 Sat by Pulse Oximetry Oxygen Devices in Use Now: Nasal Cannula Exam: Patient is lying on a bed with no acute distress. HEENT: Normocephalic and atraumatic; 2-3 vesicles seen on right corner of lip Lungs: CLear with no added sounds. Heart: S1/S2 heard with no murmur ABdomen: Soft, nondistended and nontender. NOrmal bowel sound heard Extremities: Large dressing wound on right knee; distal pulse intact Neuro: Alert, oriented and conscious Result Diagrams: 05/12/19 08:09 05/12/19 08:09 Assess/Plan/Problems-Billing Assessment: 68 y/o F with h/o HTN and Total right knee replacement(on 05/03/2019) presented with Pain, redness and swelling of right knee. Suspected acute postoperative right knee infection.s/p washout. On vanco(day10/29) - Patient Problems (1) Infection of right knee Current Visit: Yes Status: Acute Code(s): M00.9 - PYOGENIC ARTHRITIS, UNSPECIFIED SNOMED Code(s): 309023349 Comment: Wash out done on 05/10/2019; revealed blood clot POD 2 Pain controlled with Morphine, dilaudid and oxycodone On vancomycin and zosyn(day 10/29) Ortho following ID consulting; recommended iv abx for 4 weeks awaitng picc line (2) HTN (hypertension) Current Visit: No Status: Acute Code(s): I10 - ESSENTIAL (PRIMARY) HYPERTENSION SNOMED Code(s): 62563339 Comment: BP controlled now On lisinopril and HCTZ (3) Herpes labialis without complication Current Visit: Yes Status: Acute Code(s): B00.1 - HERPESVIRAL VESICULAR DERMATITIS SNOMED Code(s): 7679153 Comment: Cluster of vesicles on right corner of lip; No burning and tingling On acylcovir(day 2 on 05/12/2019) (4) Dyspepsia Current Visit: Yes Status: Acute Code(s): R10.13 - EPIGASTRIC PAIN SNOMED Code(s): 182194626 Comment: Improved after eating. No complaint at present (5) Depression Current Visit: No Status: Acute Code(s): F32.9 - MAJOR DEPRESSIVE DISORDER, SINGLE EPISODE, UNSPECIFIED SNOMED Code(s): 63396447 Comment: Continue Alprazolam and Sertraline at home doses (6) Post-menopausal Current Visit: Yes Status: Acute Comment: ON hormone replacement therapy. (7) DVT prophylaxis Current Visit: No Status: Acute Code(s): Z29.9 - ENCOUNTER FOR PROPHYLACTIC MEASURES, UNSPECIFIED SNOMED Code(s): 275281805 Comment: On lovenox 40 mg daily for 28 days(day 2) (8) Full code status Current Visit: No Status: Acute Code(s): Z78.9 - OTHER SPECIFIED HEALTH STATUS SNOMED Code(s): 994296088 Status and Disposition: INpatient Ortho; Medicine following awaiting picc line Attending: Quyen Hernandez Attestation Documenting Resident: Tia Zambrano Supervising Physician: Quyen Hernandez Attending/Supervising Physician Comment: Agree with resident note, attending addendum: 68 F HTN, seasonal affective disorder and recent right total knee replacement() presented with pain and redness around her right knee. Suspicion of Acute postoperative right knee infection. s/p washout(on 05/10/2019), ID recommending fdc abx for joint infection - PICC line, Vanco x 4 weeks, care mgmt involved -Home meds continued -We will follow Attestation: This service has been performed in part by a resident under the direction of a teaching physician.I, Quyen Hernandez, performed the service, or was physically present during the critical, or keene portions of the service, furnished by the resident. I participated in the management of the patient.
[2019-05-12] MEDS ORDERED: Diazepam TAB(*) 5 MG PO ONE (07:00)
[2019-05-12] MEDS: VITAMIN A 8000 UNIT PO SCH (08:18)
[2019-05-12 08:26] LABS: Hematocrit 23 % (35-47); Hemoglobin 8.2 g/dL (12.0-16.0); Mean Corpuscular HGB Conc 35 g/dL (31-36); Mean Corpuscular Hemoglobin 31 pg (27-31); Mean Corpuscular Volume 89 fL (80-97); Mean Platelet Volume 6.4 fL (7.4-10.4); Platelet Count 481 10^3/uL (150-450); Red Blood Count 2.64 10^6 /uL (3.70-4.87); Red Cell Distribution Width 13 % (10-15); White Blood Count 6.9 10^3/uL (3.5-10.8)
[2019-05-12 08:43] LABS: C Reactive Protein 72.33 mg/L (<8.01); Calcium 8.3 mg/dL (8.6-10.3); Potassium 3.9 mmol/L (3.5-5.0)
[2019-05-12] MEDS: HYDROmorphone INJ1* 1 MG/ML SYRINGE IV SLOW PU PRN ×2 (08:50→18:26)
[2019-05-12] MEDS: Hydrochlorothiazide TAB* 25 MG PO SCH (08:59)
[2019-05-12] MEDS: Vitamin B Complex TAB PO SCH (08:59)
[2019-05-12] MEDS: Docusate CAP* 100 MG PO SCH ×2 (08:59→20:01)
[2019-05-12] MEDS: Vitamin E CAP* 400 UNIT PO SCH (09:00)
[2019-05-12] MEDS: Lisinopril TAB* 5 MG PO SCH (09:00)
[2019-05-12] MEDS: Multivitamins/Minerals TAB PO SCH (09:00)
[2019-05-12] MEDS: Sertraline* 50 MG TAB PO SCH (09:00)
[2019-05-12] MEDS: Cyanocobalamin TAB* 500 MCG PO SCH (09:00)
[2019-05-12] MEDS: ALPRAZolam TAB* 0.25 MG PO PRN ×2 (09:05→15:23)
--- NOTE | 2019-05-12 09:42 | PN ---
Progress Note - Progress Note Date of Service: 05/12/19 SOAP: Subjective: CC: Right total knee infection HPI: Ms. Field is a 68 yo male with PMH significant for HTN, depression, seasonal affective disorder, anxiety, LBBB, and osteoarthritis. She presented to the hospital with a right knee infectoin, S/P right total knee arthroplasty. Denies fever, chills, nausea, vomiting, or diarrhea. She reports a BM this AM. She states that she continues to have significant pain in the right knee. She is anxious to get discharged home. Objective: Vital Signs 05/12/19 05/12/19 05/12/19 06:20 07:50 08:50 Temperature 98.4 F Pulse Rate 79 Respiratory 18 17 16 Rate Blood Pressure 122/54 (mmHg) O2 Sat by Pulse 96 Oximetry Physical Exam: General: NAD, sitting up in a chair Neurological: Alert and Oriented x4 HEENT: Moist MM, no thrush Cardiovascular: Heart rate regular Respiratory: Lung sounds clear Abdominal: Bowel sounds present; ABD soft, non tender and non tender MSK: No tenderness with palpation of the right thigh, limited ROM in the right knee due to pain, able to dorsi and plantar flex right ankle Skin: No rash, surgical dressing to the right knee clean, dry and intact Laboratory Results - last 24 hr 05/11/19 05/11/19 05/12/19 06:43 13:04 08:09 WBC 6.9 RBC 2.64 L Hgb 8.2 L Hct 23 L MCV 89 MCH 31 MCHC 35 RDW 13 Plt Count 481 H MPV 6.4 L ESR 76 H Vancomycin Trough 13.0 05/12/19 08:09 Sodium 140 Potassium 3.9 Chloride 107 Carbon Dioxide 29 Anion Gap 4 BUN 9 Creatinine 0.60 Est GFR ( Amer) 121.0 Est GFR (Non-Af Amer) 100.0 BUN/Creatinine Ratio 15.0 Glucose 97 Calcium 8.3 L C-Reactive Protein 72.33 H Microbiology 05/09/19 20:40 Aerobic Blood Culture - Preliminary Blood Venous No Growth Day 2 Anaerobic Blood Culture - Preliminary No Growth Day 2 05/09/19 20:40 Aerobic Blood Culture - Preliminary Blood Venous No Growth Day 2 Anaerobic Blood Culture - Preliminary No Growth Day 2 05/09/19 20:02 Skin and Soft Tissue MRSA/MSSA (PCR - Final Knee Right Mrsa Negative S.aureus Negative Gram Stain - Final Wound Culture - Final No Growth Day 2 Assessment: 1. Right prosthetic knee infection. S/P washout and poly exchange, POD # 2. Afebrile and no leukocytosis. Continues to have significant pain in the right knee. Cultures with no growth to day. Blood cultures with no growth to date. Plan: Continue Vancomycin, trough goal 15-20, day 3/28. Will need to have a PICC line placed. Will need to have weekly: CBC, CMP, CRP, and vanco trough. Followup with ID in the office in 2 weeks. 25 minutes floor time: Discussing IV ABX, side effects, routine weekly labs, and when to call the office: Fever, rash or diarrhea.
[2019-05-12 10:31] LABS: Erythrocyte Sed Rate 62 mm/Hr (0-29)
--- NOTE | 2019-05-12 11:01 | PN ---
Progress Note - Progress Note Date of Service: 05/12/19 SOAP: Subjective: []Pt seen at bedside. She is tearful this morning due to lack of control of her current situation. Knee pain is well controlled though required dilaudid overnight. Denies CP, SOB, dizziness or nausea. No BM yet, no abd pain and tolerating PO well. Objective: []Gen: NAD, nontoxic appearing RLE: Right knee dressing changed and incision is CDI, DF/PF intact, DP2+, sensation intact to light touch distally Calves supple and nontender without erythema, edema or palpable cords Assessment: []POD 2 sp Right knee I&D, poly exchange Plan: []WBAT PT/OT SAM richardson consulting for ABX mgmt, PICC placement and briova teaching pending lovenox 40 mg sq qd for 30 days post op for dvt prophy Vital Signs Temp 98.4 F 05/12/19 07:50 Pulse 79 05/12/19 07:50 Resp 18 05/12/19 09:05 BP 122/54 05/12/19 07:50 Pulse Ox 96 05/12/19 07:50 Intake & Output 05/11/19 05/12/19 05/12/19 18:59 06:59 18:59 Intake Total 1058 880 520 Output Total 500 400 Balance 558 480 520 Intake: IV Fluids 668 LR 668 IVPB 390 ABX - VANCOMYCIN 280 ABX - ZOSYN 110 Oral 880 520 Output: Urine 500 400 Other: Estimated Void Medium # Voids 1 Laboratory Last Values WBC 6.9 10^3/uL (3.5-10.8) 05/12/19 08:09 RBC 2.64 10^6 /uL (3.70-4.87) L 05/12/19 08:09 Hgb 8.2 g/dL (12.0-16.0) L 05/12/19 08:09 Hct 23 % (35-47) L 05/12/19 08:09 MCV 89 fL (80-97) 05/12/19 08:09 MCH 31 pg (27-31) 05/12/19 08:09 MCHC 35 g/dL (31-36) 05/12/19 08:09 RDW 13 % (10-15) 05/12/19 08:09 Plt Count 481 10^3/uL (150-450) H 05/12/19 08:09 MPV 6.4 fL (7.4-10.4) L 05/12/19 08:09 Neut % (Auto) 54.7 % 05/10/19 08:54 Lymph % (Auto) 26.0 % 05/10/19 08:54 [place] % (Auto) 14.7 % 05/10/19 08:54 Eos % (Auto) 4.1 % 05/10/19 08:54 Baso % (Auto) 0.5 % 05/10/19 08:54 Absolute Neuts (auto) 3.2 10^3/ul (1.5-7.7) 05/10/19 08:54 Absolute Lymphs (auto) 1.5 10^3/ul (1.0-4.8) 05/10/19 08:54 Absolute Monos (auto) 0.9 10^3/ul (0-0.8) H 05/10/19 08:54 Absolute Eos (auto) 0.2 10^3/ul (0-0.6) 05/10/19 08:54 Absolute Basos (auto) 0.0 10^3/ul (0-0.2) 05/10/19 08:54 Absolute Nucleated RBC 0.0 10^3/ul 05/10/19 08:54 Nucleated RBC % 0.1 05/10/19 08:54 ESR 62 mm/Hr (0-29) H 05/12/19 08:09 INR (Anticoag Therapy) 1.43 (0.82-1.09) H 05/10/19 10:39 Sodium 140 mmol/L (135-145) 05/12/19 08:09 Potassium 3.9 mmol/L (3.5-5.0) 05/12/19 08:09 Chloride 107 mmol/L (101-111) 05/12/19 08:09 Carbon Dioxide 29 mmol/L (22-32) 05/12/19 08:09 Anion Gap 4 mmol/L (2-11) 05/12/19 08:09 BUN 9 mg/dL (6-24) 05/12/19 08:09 Creatinine 0.60 mg/dL (0.51-0.95) 05/12/19 08:09 Est GFR ( Amer) 121.0 (>60) 05/12/19 08:09 Est GFR (Non-Af Amer) 100.0 (>60) 05/12/19 08:09 BUN/Creatinine Ratio 15.0 (8-20) 05/12/19 08:09 Glucose 97 mg/dL (70-100) 05/12/19 08:09 Lactic Acid 0.8 mmol/L (0.5-2.0) 05/09/19 20:40 Calcium 8.3 mg/dL (8.6-10.3) L 05/12/19 08:09 Iron 27 ug/dL (50-212) L 05/10/19 08:54 TIBC 203 mcg/dL (250-450) L 05/10/19 08:54 % Saturation 13 % (15-55) L 05/10/19 08:54 Unsat Iron Binding < 188 ug/dL 05/10/19 08:54 Transferrin 145 mg/dL (203-362) L 05/10/19 08:54 Total Bilirubin 0.60 mg/dL (0.2-1.0) 05/09/19 20:40 AST 29 U/L (13-39) 05/09/19 20:40 ALT 18 U/L (7-52) 05/09/19 20:40 Alkaline Phosphatase 70 U/L (34-104) 05/09/19 20:40 C-Reactive Protein 72.33 mg/L (<8.01) H 05/12/19 08:09 Total Protein 5.8 g/dL (6.4-8.9) L 05/09/19 20:40 Albumin 3.5 g/dL (3.2-5.2) 05/09/19 20:40 Globulin 2.3 g/dL (2-4) 05/09/19 20:40 Albumin/Globulin Ratio 1.5 (1-3) 05/09/19 20:40 Vitamin B12 1008 pg/mL (180-914) H 05/10/19 08:54 Folate > 20.00 ng/mL (>3.99) 05/10/19 08:54 Vancomycin Trough 13.0 mcg/mL 05/11/19 13:04 Blood Type A Negative 05/10/19 08:54 Antibody Screen Negative 05/10/19 08:54
[2019-05-12] MEDS: Magnesium Hydroxide LIQ* 30 ML UDC PO SCH ×2 (11:25→20:01)
[2019-05-12] MEDS ORDERED: Mepivacaine 1% (10 MG/ML)* 30 ML SDV INJ ONE (11:54)
[2019-05-12] MEDS ORDERED: Polyethylene Glycol 3350* 17 GM PACKET PO PRN (15:09)
[2019-05-12] MEDS: Enoxaparin(*) 40 MG/0.4 ML SYR SUBCUT SCH (15:23)
[2019-05-12] MEDS: Cetirizine* 10 MG TAB PO SCH (20:01)
[2019-05-12] MEDS ORDERED: ESTROGENS PO SCH (21:00)
[2019-05-12] MEDS ORDERED: MEDROXYPR PO SCH (21:00)
[2019-05-12] MEDS: Morphine INJ* 2 MG/ML 1 ML SYRINGE (TWO MG - NEW SYRINGE VERSION) IV PRN (21:47)
[2019-05-13] MEDS: oxyCODONE TAB* 5 MG TAB PO PRN ×3 (01:55→10:21)
[2019-05-13] MEDS: traMADol TAB* 50 MG PO PRN (03:18)
[2019-05-13] MEDS: Vancomycin(*) 750 MG in NS 0.9% 250 ML* 250 ML IVPB SCH ×2 (03:44→11:37)
[2019-05-13] MEDS: Morphine INJ* 2 MG/ML 1 ML SYRINGE (TWO MG - NEW SYRINGE VERSION) IV PRN (03:54)
[2019-05-13] MEDS ORDERED: Bisacodyl SUPP* 10 MG SUPP PR ONE (06:00)
[2019-05-13] MEDS: Acetaminophen TAB* 325 MG PO SCH (06:00)
[2019-05-13] MEDS: Acyclovir* 400 MG TAB PO SCH (06:04)
[2019-05-13 06:08] LABS: Hematocrit 24 % (35-47); Hemoglobin 8.3 g/dL (12.0-16.0); Mean Corpuscular HGB Conc 35 g/dL (31-36); Mean Corpuscular Hemoglobin 31 pg (27-31); Mean Corpuscular Volume 89 fL (80-97); Mean Platelet Volume 6.1 fL (7.4-10.4); Platelet Count 349 10^3/uL (150-450); Red Cell Distribution Width 13 % (10-15); White Blood Count 7.5 10^3/uL (3.5-10.8)
[2019-05-13 06:29] LABS: BUN/Creatinine Ratio 19.2 (8-20); C Reactive Protein 45.17 mg/L (<8.01); Calcium 8.4 mg/dL (8.6-10.3); EGFR African American 142.8 (>60); Potassium 3.6 mmol/L (3.5-5.0)
--- NOTE | 2019-05-13 07:03 | PN ---
Subjective Date of Service: 05/13/19 Interval History: HD#4 68 y/o F with h/o HTN, seasonal affective disorder and recent right total knee replacement(05/03/2019) presented with pain and redness around her right knee. Found to have Acute postoperative right knee infection. s/p washout(0n 05/10/2019 ). On vancomycin(day11/29) No acute overnight events Vitals stable Labs; Hb 8.3 No complaint at present. Feeling her pain has decreased;3/10 NO fever, chills Objective Active Medications: Acetaminophen (Tylenol Tab*) 975 mg PO Q8HR [facility] Last Admin: 05/13/19 06:00 Dose: 975 mg Acyclovir (Zovirax Tab*) 400 mg PO Q8HR [facility] Last Admin: 05/13/19 06:04 Dose: 400 mg Alprazolam (Xanax Tab*) 0.25 mg PO TID PRN PRN Reason: ANXIETY Last Admin: 05/12/19 15:23 Dose: 0.25 mg Bisacodyl (Dulcolax Supp*) 10 mg [place] DAILY PRN PRN Reason: CONSTIPATION Calcium Carbonate (Tums*) 500 mg PO Q4H PRN PRN Reason: INDIGESTION Last Admin: 05/11/19 14:25 Dose: 500 mg Cetirizine HCl (Zyrtec*) 10 mg PO BEDTIME [facility] Last Admin: 05/12/19 20:01 Dose: 10 mg Cyanocobalamin (Vitamin B12 Tab*) 1,000 mcg PO QAM [facility] Last Admin: 05/12/19 09:00 Dose: 1,000 mcg Docusate Sodium (Colace Cap*) 100 mg PO BID [facility] Last Admin: 05/12/19 20:01 Dose: 100 mg Enoxaparin Sodium (Lovenox(*)) 40 mg SUBCUT DAILY@1400 [facility] Last Admin: 05/12/19 15:23 Dose: 40 mg Estrogens Conj/Medroxyprogest Acet (Prempro 0.3/1.5 (Nf)) 1 tab PO BEDTIME [facility] Last Admin: 05/12/19 20:21 Dose: Not Given Fluticasone Propionate (Flonase Nasal [place] 50mcg*) 2 spray BOTH NARES DAILY PRN PRN Reason: CONGESTION Heparin Sodium (Porcine) (Heparin Flush Picc/Ml/Cvc(*)) 1 - 3 ml FLUSH 0600, 1800 [facility]; Protocol Last Admin: 05/13/19 05:51 Dose: 1 ml Hydrochlorothiazide (Hydrodiuril Tab*) 25 mg PO [facility] Last Admin: 05/12/19 08:59 Dose: 25 mg Hydromorphone HCl (Dilaudid Inj1s*) 1 mg IV SLOW PU Q2H PRN PRN Reason: PAIN - SEVERE Last Admin: 05/12/19 18:26 Dose: 1 mg Vancomycin HCl 750 mg/ Sodium (Chloride) 250 mls @ 166.667 mls/hr IVPB Q8H [facility] Last Admin: 05/13/19 03:44 Dose: 166.667 mls/hr Lactated Ringer's (Lactated Ringers 1000 Ml Bag*) 1,000 mls @ 125 mls/hr IV PER RATE [facility] Last Admin: 05/10/19 23:20 Dose: 125 mls/hr Lactulose (Lactulose*) 30 ml PO DAILY PRN PRN Reason: CONSTIPATION Lisinopril (Prinivil Tab*) 5 mg PO [facility] Last Admin: 05/12/19 09:00 Dose: 5 mg Magnesium Hydroxide (Milk Of Magnesia Liq*) 30 ml PO BID [facility] Last Admin: 05/12/19 20:01 Dose: 30 ml Magnesium Hydroxide (Milk Of Magnesia Liq*) 30 ml PO BID PRN PRN Reason: CONSTIPATION Morphine Sulfate (Morphine Inj (Syringe))*) 1 mg IV Q4H PRN PRN Reason: BREAKTHROUGH PAIN Last Admin: 05/13/19 03:54 Dose: 1 mg Multivitamins/Minerals (Theragran/Minerals Tab*) [facility] Last Admin: 05/12/19 09:00 Dose: 1 tab [Glucosamine Complex (Tablet]) 1 tab PO TuTh@0900 [facility] Last Admin: 05/11/19 07:30 Dose: Not Given [Vitamin A] 8,000 (Unit) 8,000 unit PO [facility] Last Admin: 05/12/19 08:18 Dose: Not Given Oxycodone HCl (Roxycodone Tab*) 10 mg PO Q4H PRN PRN Reason: PAIN - SEVERE Last Admin: 05/13/19 06:00 Dose: 10 mg Pharmacy Consult (Vancomycin Per Pharmacy*) 1 note FOLLOW UP .VANC PER PHARMACY [facility]; Protocol Pharmacy Profile Note (Vancomycin Trough Check) 1 note FOLLOW UP 1130 ONE Stop: 05/13/19 11:31 Polyethylene Glycol/Electrolytes (Miralax*) 17 gm PO DAILY PRN PRN Reason: CONSTIPATION Senna (Senokot 8.6 Mg Tab*) 1 tab PO BEDTIME PRN PRN Reason: CONSTIPATION Sertraline HCl (Zoloft*) 50 mg PO [facility] Last Admin: 05/12/19 09:00 Dose: 50 mg Tramadol HCl (Ultram*) 50 mg PO Q6H PRN PRN Reason: PAIN - MILD Last Admin: 05/13/19 03:18 Dose: 50 mg Vitamin B Complex/Vitamin E (B Complex-50*) 1 tab PO [facility] Last Admin: 05/12/19 08:59 Dose: 1 tab Vitamin E (Vitamin E Cap*) 1,200 unit PO [facility] Last Admin: 05/12/19 09:00 Dose: 1,200 unit Vital Signs - 8 hr 05/13/19 05/13/19 05/13/19 01:55 03:18 03:20 Temperature 98.8 F Pulse Rate 82 Respiratory 16 16 16 Rate Blood Pressure 156/64 (mmHg) O2 Sat by Pulse 98 Oximetry 05/13/19 05/13/19 05/13/19 03:54 04:46 06:00 Temperature Pulse Rate Respiratory 16 16 Rate Blood Pressure (mmHg) O2 Sat by Pulse 98 Oximetry Oxygen Devices in Use Now: None Exam: Patient is lying on a bed with no acute distress. HEENT: Normocephalic and atraumatic; Lungs: CLear with no added sounds. Heart: S1/S2 heard with no murmur ABdomen: Soft, nondistended and nontender. NOrmal bowel sound heard Extremities: Large dressing wound on right knee; distal pulse intact Neuro: Alert, oriented and conscious Result Diagrams: 05/13/19 05:47 05/13/19 05:47 Assess/Plan/Problems-Billing Assessment: 68 y/o F with h/o HTN and Total right knee replacement(on 05/03/2019) presented with Pain, redness and swelling of right knee. Suspected acute postoperative right knee infection.s/p washout. On vanco(day11/29) - Patient Problems (1) Infection of right knee Status: Acute Code(s): M00.9 - PYOGENIC ARTHRITIS, UNSPECIFIED SNOMED Code(s ): 950146614 Comment: Wash out done on 05/10/2019; revealed blood clot POD 3 Pain controlled with Morphine, dilaudid and oxycodone On vancomycin(day 428) Ortho following ID consulting; recommended iv abx for 4 weeks PICC line placed (2) HTN (hypertension) Status: Acute Code(s): I10 - ESSENTIAL (PRIMARY) HYPERTENSION SNOMED Code(s) : 89112669 Comment: BP controlled now On lisinopril and HCTZ (3) Herpes labialis without complication Status: Acute Code(s): B00.1 - HERPESVIRAL VESICULAR DERMATITIS SNOMED Code( s): 4063511 Comment: Cluster of vesicles on right corner of lip; No burning and tingling On acylcovir(day 3 on 05/13/2019) (4) Dyspepsia Status: Acute Code(s): R10.13 - EPIGASTRIC PAIN SNOMED Code(s): 769954552 Comment: Improved after eating. No complaint at present (5) Depression Status: Acute Code(s): F32.9 - MAJOR DEPRESSIVE DISORDER, SINGLE EPISODE, UNSPECIFIED SNOMED Code(s): 79921064 Comment: Continue Alprazolam and Sertraline at home doses (6) Post-menopausal Status: Acute Comment: ON hormone replacement therapy. (7) DVT prophylaxis Status: Acute Code(s): Z29.9 - ENCOUNTER FOR PROPHYLACTIC MEASURES, UNSPECIFIED SNOMED Code(s): 215098865 Comment: On lovenox 40 mg daily for 28 days(day 3) (8) Full code status Status: Acute Code(s): Z78.9 - OTHER SPECIFIED HEALTH STATUS SNOMED Code(s) : 027241892 Status and Disposition: INpatient Ortho; Medicine following dc today Attending: Quyen Hernandez Attestation Documenting Resident: Tia Zambrano Supervising Physician: Quyen Hernandez Attending/Supervising Physician Comment: Agree with resident note. Pt being d/c by primary team on IV vanco x 4 weeks Attestation: This service has been performed in part by a resident under the direction of a teaching physician.I, Quyen Hernandez, performed the service, or was physically present during the critical, or keene portions of the service, furnished by the resident. I participated in the management of the patient.
[2019-05-13 07:20] LABS: Erythrocyte Sed Rate 67 mm/Hr (0-29)
[2019-05-13] MEDS: Multivitamins/Minerals TAB PO SCH (09:13)
[2019-05-13] MEDS: Vitamin E CAP* 400 UNIT PO SCH (09:13)
[2019-05-13] MEDS: Sertraline* 50 MG TAB PO SCH (09:13)
[2019-05-13] MEDS: Cyanocobalamin TAB* 500 MCG PO SCH (09:13)
[2019-05-13] MEDS: Docusate CAP* 100 MG PO SCH (09:13)
[2019-05-13] MEDS: Vitamin B Complex TAB PO SCH (09:13)
[2019-05-13] MEDS: Hydrochlorothiazide TAB* 25 MG PO SCH (09:13)
[2019-05-13] MEDS: Lisinopril TAB* 5 MG PO SCH (09:13)
[2019-05-13] MEDS: GLUCOSAMINE COMPLEX PO SCH (09:16)
[2019-05-13] MEDS: Magnesium Hydroxide LIQ* 30 ML UDC PO SCH (09:17)
[2019-05-13] MEDS: VITAMIN A 8000 UNIT PO SCH (09:17)
--- NOTE | 2019-05-13 10:11 | PN ---
Progress Note - Progress Note Date of Service: 05/13/19 SOAP: Subjective: []Pt seen at bedside. Feeling well, anticipates DC home. Denies CP, SOB, dizziness, nausea. Had a BM. Objective: []Gen: NAD, nontoxic appearing RLE: Right knee dressing changed and incision is CDI no erythema or discharge. DF/PF intact, DP2+, sensation intact to light touch distally Calves supple and nontender without erythema, edema or palpable cords Assessment: []POD 3 sp Right knee I&D, poly exchange Plan: []WBAT PT/OT SAM richardson consulting for ABX mgmt, PICC placement and briova teaching done lovenox 40 mg sq qd for 30 days post op for dvt prophy Vital Signs Temp 98.8 F 05/13/19 03:20 Pulse 82 05/13/19 03:20 Resp 18 05/13/19 07:44 BP 156/64 05/13/19 03:20 Pulse Ox 98 05/13/19 04:46 Intake & Output 05/12/19 05/13/19 05/13/19 18:59 06:59 18:59 Intake Total 520 Balance 520 Intake: Oral 520 Other: Estimated Void Medium Medium Date of Last Bowel 05/12/19 05/13/2019 Movement # Bowel Movements 1 Estimated Stool Amount Large Medium # Voids 1 1 Laboratory Last Values WBC 7.5 10^3/uL (3.5-10.8) 05/13/19 05:47 RBC 2.70 10^6 /uL (3.70-4.87) L 05/13/19 05:47 Hgb 8.3 g/dL (12.0-16.0) L 05/13/19 05:47 Hct 24 % (35-47) L 05/13/19 05:47 MCV 89 fL (80-97) 05/13/19 05:47 MCH 31 pg (27-31) 05/13/19 05:47 MCHC 35 g/dL (31-36) 05/13/19 05:47 RDW 13 % (10-15) 05/13/19 05:47 Plt Count 349 10^3/uL (150-450) 05/13/19 05:47 MPV 6.1 fL (7.4-10.4) L 05/13/19 05:47 Neut % (Auto) 54.7 % 05/10/19 08:54 Lymph % (Auto) 26.0 % 05/10/19 08:54 Sheridan % (Auto) 14.7 % 05/10/19 08:54 Eos % (Auto) 4.1 % 05/10/19 08:54 Baso % (Auto) 0.5 % 05/10/19 08:54 Absolute Neuts (auto) 3.2 10^3/ul (1.5-7.7) 05/10/19 08:54 Absolute Lymphs (auto) 1.5 10^3/ul (1.0-4.8) 05/10/19 08:54 Absolute Monos (auto) 0.9 10^3/ul (0-0.8) H 05/10/19 08:54 Absolute Eos (auto) 0.2 10^3/ul (0-0.6) 05/10/19 08:54 Absolute Basos (auto) 0.0 10^3/ul (0-0.2) 05/10/19 08:54 Absolute Nucleated RBC 0.0 10^3/ul 05/10/19 08:54 Nucleated RBC % 0.1 05/10/19 08:54 ESR 67 mm/Hr (0-29) H 05/13/19 05:47 INR (Anticoag Therapy) 1.43 (0.82-1.09) H 05/10/19 10:39 Sodium 139 mmol/L (135-145) 05/13/19 05:47 Potassium 3.6 mmol/L (3.5-5.0) 05/13/19 05:47 Chloride 106 mmol/L (101-111) 05/13/19 05:47 Carbon Dioxide 28 mmol/L (22-32) 05/13/19 05:47 Anion Gap 5 mmol/L (2-11) 05/13/19 05:47 BUN 10 mg/dL (6-24) 05/13/19 05:47 Creatinine 0.52 mg/dL (0.51-0.95) 05/13/19 05:47 Est GFR ( Amer) 142.8 (>60) 05/13/19 05:47 Est GFR (Non-Af Amer) 118.0 (>60) 05/13/19 05:47 BUN/Creatinine Ratio 19.2 (8-20) 05/13/19 05:47 Glucose 101 mg/dL (70-100) H 05/13/19 05:47 Lactic Acid 0.8 mmol/L (0.5-2.0) 05/09/19 20:40 Calcium 8.4 mg/dL (8.6-10.3) L 05/13/19 05:47 Iron 27 ug/dL (50-212) L 05/10/19 08:54 TIBC 203 mcg/dL (250-450) L 05/10/19 08:54 % Saturation 13 % (15-55) L 05/10/19 08:54 Unsat Iron Binding < 188 ug/dL 05/10/19 08:54 Transferrin 145 mg/dL (203-362) L 05/10/19 08:54 Total Bilirubin 0.60 mg/dL (0.2-1.0) 05/09/19 20:40 AST 29 U/L (13-39) 05/09/19 20:40 ALT 18 U/L (7-52) 05/09/19 20:40 Alkaline Phosphatase 70 U/L (34-104) 05/09/19 20:40 C-Reactive Protein 45.17 mg/L (<8.01) H 05/13/19 05:47 Total Protein 5.8 g/dL (6.4-8.9) L 05/09/19 20:40 Albumin 3.5 g/dL (3.2-5.2) 05/09/19 20:40 Globulin 2.3 g/dL (2-4) 05/09/19 20:40 Albumin/Globulin Ratio 1.5 (1-3) 05/09/19 20:40 Vitamin B12 1008 pg/mL (180-914) H 05/10/19 08:54 Folate > 20.00 ng/mL (>3.99) 05/10/19 08:54 Vancomycin Trough 13.0 mcg/mL 05/11/19 13:04 Blood Type A Negative 05/10/19 08:54 Antibody Screen Negative 05/10/19 08:54
--- NOTE | 2019-05-13 10:35 | DS ---
Orthopedic Discharge Summary - Discharge Summary Date of Admission:05/09/19 Date of Discharge: 05/13/19 Date of Surgery: 05/09/19 Attending Orthopedic Provider: Dr Delgado Pre-operative Diagnosis: infected RTK Operative Procedure: Right knee I&D and poly exchange Disposition of Patient: home with services and briova Condition of Patient: stable History: GALI MCNAMARA is a 68 year old F infected RTK Hospital Course: GALI was admitted to [facility] on 05/09/19. Patient underwent a [right knee i&d and poly exchange] without complication followed by a brief recovery in PACU and transfer to the Short Stay Surgical Unit in stable condition. Our hospitalist service, infectious disease, physical therapy and occupational therapy also participated in this patients care. Post- op day 1: patient was alert and in no acute distress. Dressing was clean, dry and intact. Operative extremity dorsiflexion and plantarflexion intact, sensation intact to light touch distally, DP2+. Post-op day two- 05/13/19: dressing was changed, incision was clean, dry and intact. Patient was deemed to be medically and orthopedically stable for discharge. Physical therapy goals were met. Home Medications Medication Instructions Recorded Confirmed Type ALPRAZolam [Xanax] 0.25 mg PO TID PRN 04/20/19 05/09/19 History Acyclovir 200 mg PO SEE INSTRUCTIONS PRN 04/20/19 05/09/19 History Cyanocobalamin (Vitamin B-12) 1,000 mcg PO QAM 04/20/19 05/09/19 History [Vitamin B-12] Estradiol VAGINAL TAB(NF) [Vagifem] 10 mcg VAGINAL WEEKLY 04/20/19 05/09/19 History Estrogens/Medroxypr 0.3(NF) 1 tab PO BEDTIME 04/20/19 05/09/19 History [Prempro 0.3/1.5 (NF)] Fluticasone NASAL SPRAY 50MCG* 2 spray BOTH NARES DAILY PRN 04/20/19 05/09/19 History [Flonase NASAL SPRAY 50MCG*] Glucosamine/D3/Boswellia Karly 1 tab PO WEEKLY 04/20/19 05/09/19 History [Glucosamine Complex Tablet] Ibuprofen 600 mg PO Q6H PRN 04/20/19 05/09/19 History Juice Plus Fiber 1 tab PO QAM 04/20/19 05/09/19 History L.acidoph,Paracasei, B.lactis 1 each PO QAM 04/20/19 05/09/19 History [Probiotic] Lisinopril 5 mg PO QAM 04/20/19 05/09/19 History Loratadine [Claritin] 10 mg PO BEDTIME 04/20/19 05/09/19 History Multivitamin [Multiple Vitamins] 1 tab PO QAM 04/20/19 05/09/19 History Sertraline HCl [Zoloft] 50 mg PO QAM 04/20/19 05/09/19 History Vitamin A 8,000 unit PO QAM 04/20/19 05/09/19 History Vitamin B Complex [Super B-50 1 each PO QAM 04/20/19 05/09/19 History Complex] Vitamin E Acetate [Vitamin E] 1,200 unit PO QAM 04/20/19 05/09/19 History hydroCHLOROthiazide 25 mg PO QAM 04/20/19 05/09/19 History [Hydrochlorothiazide] Acetaminophen TAB* [Tylenol TAB*] 975 mg PO Q8HR tab 05/06/19 05/09/19 Rx Docusate CAP* [Colace Cap*] 100 mg PO BID PRN #90 cap 05/13/19 Rx oxyCODONE TAB* [Roxycodone TAB 5 10 mg PO Q4H PRN #70 tab MDD 10 05/13/19 Rx mg*] traMADol TAB* [Ultram*] 50 mg PO Q6H PRN #20 tab MDD 4 05/13/19 Rx Discharge Instructions following Orthopedic Surgery: Activity: * Weight Bearing as tolerated * Continue physical therapy and occupational therapy exercises as shown * Home PT Wound care: * OK to shower on post-op day 3, no bathing, swimming, or submerging wound. * Use gentle soap, pat dry. Cover with gauze, FAREED wrap or tape. * Visiting home nurse to do wound checks. Call Orthopedic office for: * Increased drainage * Redness * Increased pain * Fever Go to ER with shortness of breath or chest pain. Diet: * Regular diet * Increase fluids and fiber to prevent constipation. * Continue to use stool softeners, call office if no bowel motion within 48 hours. Medications See Home Medication List in your packet for medications that you should take after discharge. DVT Prophylaxis: Lovenox Dosin mg once daily for 30 days post op. Increases bleeding tendency At last discharge you were given eliquis, you are no longer taking this blood thinner. Pain Control: oxycodone 5 mg tabs. one tab for moderate pain and 2 tabs for severe pain every 4 hours as needed. max 10 per day. hold for sedation and wean off as soon as pain allows Also given tramadol 50 mg take one tab every 6 hours as needed for mild pain, hold for sedation and wean off as soon as pain allows. Max 4 tabs per day Continue Vancomycin per Infectious disease. Vanco trough goal 15-20. Will need to have weekly: CBC, CMP, CRP, and vanco trough. Followup with ID in the office in 2 weeks. Antibiotics are required prior to any dental work. FOLLOW UP: Follow up with [Danny] 05/20, call for appointment, call sooner with concerns Please call our office with any questions or concerns ([phone]) [facility]
[2019-05-13 11:14] VITALS: BP 174/73
[2019-05-13] MEDS ORDERED: Vancomycin Trough Check NOTE FOLLOW UP ONE (11:30)
[2019-05-13] MEDS ORDERED: Vancomycin(*) 1,250 MG in NS 0.9% 250 ML* 250 ML IVPB SCH (20:00)
== END 2019-05-13 12:45 | disposition home or self-care (01) | DRG 464 ==
LOC: ED 17:58 → SSU 20:18
PROVIDERS: ADMIT Physician Assistant; ATTEND Orthopaedic Surgery
PROC: 0SRC0NZ Replacement of Right Knee Joint with Patellofemoral Synthetic Substitute, Open Approach (ICD-10-PCS; 2019-05-10)
PROC: 0SPC0NZ Removal of Patellofemoral Synthetic Substitute from Right Knee Joint, Open Approach (ICD-10-PCS; principal; 2019-05-10 17:15)
DX: T84.53XA Infection and inflammatory reaction due to internal right knee prosthesis, initial encounter (principal); M00.9 Pyogenic arthritis, unspecified; Y79.2 Prosthetic and other implants, materials and accessory orthopedic devices associated with adverse incidents; I44.7 Left bundle-branch block, unspecified; I10 Essential (primary) hypertension; E11.9 Type 2 diabetes mellitus without complications; M15.0 Primary generalized (osteo)arthritis; F41.9 Anxiety disorder, unspecified; F39 Unspecified mood [affective] disorder; R10.13 Epigastric pain; F32.9 Major depressive disorder, single episode, unspecified; D64.9 Anemia, unspecified; J30.2 Other seasonal allergic rhinitis; B00.1 Herpesviral vesicular dermatitis; Z80.9 Family history of malignant neoplasm, unspecified; Y92.9 Unspecified place or not applicable; Z88.8 Allergy status to other drugs, medicaments and biological substances; Z87.891 Personal history of nicotine dependence; Z91.048 Other nonmedicinal substance allergy status; Z78.0 Asymptomatic menopausal state
CPT/HCPCS: 36415; 80048; 80053; 80202; 82607; 82746; 83540; 83550; 83605; 85025; 85027; 85610; 85652; 86140; 86850; 86900; 86901; 87040; 87070; 87205; 87640; 87641; 88300; 96361; 96365; 96375; 99285; A9270-GY; C1751; C1776; G8978-GP-CK; G8979-GP-CI; J0330; J0670; J1100; J1170; J1200; J1240; J1650; J2250; J2270; J2405; J2543; J2704; J3010; J3370; J3430